=== PATIENT | female | born 1950 | race Caucasian/White ===

== ENCOUNTER → 2017-12-13 02:10 | Outpatient (CLI) | payer MEDICARE, SELFPAY ==
--- NOTE | 2017-12-13 11:12 | DI.REPORT_ITS ---
SYMPTOMS/DIAGNOSIS: COUGH, R05 PA AND LATERAL CHEST: Comparison is 07/12/15. The heart size and pulmonary vasculature are within normal limits. No findings to suggest congestive heart failure or pneumonia are appreciated. No effusions or pneumothoraces are identified. Mild degenerative changes are seen in the spine. IMPRESSION: No acute pulmonary process.
== END ==
PROVIDERS: PCP Family Medicine; Visit Provider Nurse Practitioner Family
DX: R05 Cough (principal)
CPT/HCPCS: 71046

== ENCOUNTER 2018-05-03 01:44 | Outpatient (CLI) | payer MEDICARE, SELFPAY ==
[2018-05-03 09:58] LABS: Hemoglobin A1C 7.4 % (4.5-6.2)
[2018-05-03 10:27] LABS: ALT 42 U/L (12-78); AST 25 U/L (15-37); Albumin 3.5 g/dL (3.4-5.0); Alkaline Phosphatase 90 U/L (46-116); BUN 16 mg/dL (7-18); Bilirubin, Total 0.6 mg/dL (0.2-1.0); CREATININE 0.97 mg/dL (0.55-1.02); Calcium 9.6 mg/dL (8.5-10.1); Chloride 102 mmol/L (98-107); Cholesterol 191 mg/dL (50-200); Estimated GFR 57.64 (mL/min/1.73m2); Glucose 139 mg/dL (70-100); HDL Cholesterol 51 mg/dL (40-60); LDL CHOLESTEROL 128 mg/dL (<100); Sodium 141 mmol/L (136-145); TSH (W/Ref FT4) 1.18 uIU/mL (0.358-3.74); Total Protein 7.7 g/dL (6.4-8.2); Triglyceride 86 mg/dL (30-150)
== END 2018-05-03 02:04 ==
PROVIDERS: PCP Family Medicine; Visit Provider Family Medicine
DX: E03.9 Hypothyroidism, unspecified (principal); I10 Essential (primary) hypertension; K80.20 Calculus of gallbladder without cholecystitis without obstruction; E11.9 Type 2 diabetes mellitus without complications; E66.9 Obesity, unspecified
CPT/HCPCS: 36415; 80053; 80061; 83721; 83036; 84443

== ENCOUNTER 2018-06-22 00:36 | Outpatient (CLI) | payer MEDICARE, SELFPAY ==
--- NOTE | 2018-06-22 14:04 | DI.MAMMO_ITS ---
SYMPTOM/DIAGNOSIS: SCREENING, Z12.31 MAMMOGRAMS: Mammograms were interpreted according to the usual protocol including computer analysis with CAD system, tomosynthesis and C view imaging. Comparison is with the prior examinations. No suspicious masses or microcalcifications are seen. There is no definite evidence of malignancy. IMPRESSION: Negative mammogram. Routine screening is recommended. Category 1. Breast density B. MQSA ASSESSMENT OF FINDINGS: Negative. Category 1. Patient will receive a letter notifying them of these results. BI-RADS category B. There are scattered areas of fibroglandular density.
--- NOTE | 2018-06-22 14:30 | DI.RAD_ITS ---
SYMPTOM/DIAGNOSIS: SCREENING FOR OSTEOPOROSIS IN A POSTMENOPAUSAL WOMAN, Z78.0, OSTEOPENIA, M85.88 DEXA SCAN: Routine examination. Evaluation of the lateral spine shows no compression deformities. In the left hip, there is a total T score of -1.4 and a Z score of -0.2. This is consistent with osteopenia and an increased fracture risk. This compares with a total T score of -0.8 in 2008. Evaluation of the lumbar spine shows a total T score of -0.3 and a Z score of 1.5, which is within normal limits. This compares with a total T score of -0.8 on the prior examination. IMPRESSION: Osteopenia in the left hip. No evidence of osteoporosis.
== END 2018-06-22 00:56 ==
PROVIDERS: PCP Family Medicine; Visit Provider Family Medicine
DX: M85.88 Other specified disorders of bone density and structure, other site (principal); Z78.0 Asymptomatic menopausal state; Z12.31 Encounter for screening mammogram for malignant neoplasm of breast
CPT/HCPCS: 77063; 77067; 77080

== ENCOUNTER 2018-10-11 01:12 | Outpatient (RCR) | payer MEDICARE, SELFPAY ==
[2018-10-04 09:04] VITALS: BP 146/81; PULSE 89; RESP 18; TEMP 36.5; O2SAT 93
[2018-10-04] MEDS: Normal Saline Flush 10 ML SYR IVP (09:47)
[2018-10-04] MEDS: Proteinase Inhibitor 5 VIAL in EMPTY EVACUATED CONTAINER 1 EACH 100 VIAL IVPB (09:48)
[2018-10-04 09:51] VITALS: BP 144/85; PULSE 77; RESP 18; TEMP 36.7; O2SAT 90
[2018-10-04 10:09] VITALS: BP 150/73; PULSE 76; RESP 18; TEMP 36.4; O2SAT 91
[2018-10-04 10:36] VITALS: BP 139/71; PULSE 77; RESP 18; TEMP 36.5; O2SAT 91
[2018-10-04 11:04] VITALS: BP 144/75; PULSE 72; RESP 18; TEMP 36.5; O2SAT 90
[2018-10-04 11:37] VITALS: BP 132/68; PULSE 70; RESP 18; TEMP 36.4; O2SAT 92
[2018-10-11] VITALS (7 sets, daily range): BP systolic 137–172; BP diastolic 71–91; PULSE 68–84; RESP 16–18; TEMP 36–36.6; O2SAT 90–94
[2018-10-11] MEDS: Normal Saline Flush 10 ML SYR IVP (09:53)
[2018-10-11] MEDS: Proteinase Inhibitor 5 VIAL in EMPTY EVACUATED CONTAINER 1 EACH 100 VIAL IVPB (09:53)
== END 2018-10-15 23:59 | disposition home or self-care (01) ==
LOC: INF 01:12
PROVIDERS: PCP Family Medicine; Visit Provider Internal Medicine
DX: E88.01 Alpha-1-antitrypsin deficiency (principal)
CPT/HCPCS: 96365; J0257; J1200

== ENCOUNTER 2018-11-14 01:23 | Outpatient (RCR) | payer MEDICARE, SELFPAY ==
[2018-10-18 09:18] VITALS: BP 144/83; PULSE 82; RESP 18; TEMP 36.4; O2SAT 98
[2018-10-18] MEDS: Proteinase Inhibitor 5 VIAL in EMPTY EVACUATED CONTAINER 1 EACH 100 VIAL IVPB (10:18)
[2018-10-18] MEDS: Normal Saline Flush 10 ML SYR IVP (10:18)
[2018-10-18 10:53] VITALS: BP 146/79; PULSE 77; RESP 18; TEMP 36.3; O2SAT 93
[2018-10-18 11:25] VITALS: BP 153/80; PULSE 72; RESP 18; TEMP 36.5; O2SAT 98
[2018-10-18 11:46] VITALS: BP 145/70; PULSE 74; RESP 18; TEMP 36.4; O2SAT 99
[2018-10-18 12:48] VITALS: BP 134/84; PULSE 82; TEMP 36.6
[2018-10-18 13:23] VITALS: BP 143/77; PULSE 80; TEMP 36.6; O2SAT 93
[2018-10-24] MEDS: Proteinase Inhibitor 5 VIAL in EMPTY EVACUATED CONTAINER 1 EACH 100 VIAL IVPB (13:38)
[2018-10-24] MEDS: Normal Saline Flush 10 ML SYR IVP (13:39)
[2018-10-31 13:24] VITALS: BP 143/77; PULSE 80; TEMP 36.6; O2SAT 93
[2018-10-31] MEDS: Normal Saline Flush 10 ML SYR IVP (13:55)
[2018-10-31] MEDS: Proteinase Inhibitor 5 VIAL in EMPTY EVACUATED CONTAINER 1 EACH 100 VIAL IVPB (13:55)
[2018-11-07] MEDS: Normal Saline Flush 10 ML SYR IVP (14:12)
[2018-11-07] MEDS: Proteinase Inhibitor 5 VIAL in EMPTY EVACUATED CONTAINER 1 EACH 100 VIAL IVPB (14:12)
[2018-11-14] MEDS: Proteinase Inhibitor 5 VIAL in EMPTY EVACUATED CONTAINER 1 EACH 100 VIAL IVPB (13:29)
[2018-11-14] MEDS: Normal Saline Flush 10 ML SYR IVP (13:29)
== END 2018-11-15 23:59 | disposition home or self-care (01) ==
LOC: INF 01:23
PROVIDERS: PCP Family Medicine; Visit Provider Internal Medicine
DX: E88.01 Alpha-1-antitrypsin deficiency (principal)
CPT/HCPCS: 96365; 96374; J0257

== ENCOUNTER 2018-12-12 01:18 | Outpatient (RCR) | payer MEDICARE, SELFPAY ==
[2018-11-23] MEDS: Proteinase Inhibitor 5 VIAL in EMPTY EVACUATED CONTAINER 1 EACH 100 VIAL IVPB (13:02)
[2018-11-23] MEDS: Normal Saline Flush 10 ML SYR IVP (13:15)
[2018-11-30] MEDS: Normal Saline Flush 10 ML SYR IVP (14:38)
[2018-11-30] MEDS: Proteinase Inhibitor 5 VIAL in EMPTY EVACUATED CONTAINER 1 EACH 100 VIAL IVPB (15:02)
[2018-12-07] MEDS: Proteinase Inhibitor 5 VIAL in EMPTY EVACUATED CONTAINER 1 EACH 100 VIAL IVPB (14:10)
[2018-12-07] MEDS: Normal Saline Flush 10 ML SYR IVP (14:49)
[2018-12-12] MEDS: Proteinase Inhibitor 5 VIAL in EMPTY EVACUATED CONTAINER 1 EACH 150 VIAL IVPB (14:05)
[2018-12-12] MEDS: Normal Saline Flush 10 ML SYR IVP (14:05)
== END 2018-12-16 23:59 | disposition home or self-care (01) ==
LOC: INF 01:18
PROVIDERS: PCP Family Medicine; Visit Provider Internal Medicine
DX: E88.01 Alpha-1-antitrypsin deficiency (principal)
CPT/HCPCS: 96365; J0257

== ENCOUNTER 2019-01-10 01:15 | Outpatient (RCR) | payer MEDICARE, SELFPAY ==
[2018-12-19] MEDS: Normal Saline Flush 10 ML SYR IVP (13:03)
[2018-12-19] MEDS: Proteinase Inhibitor 5 VIAL in EMPTY EVACUATED CONTAINER 1 EACH 175 VIAL IVPB (13:53)
[2018-12-26] MEDS: Proteinase Inhibitor 5 VIAL in EMPTY EVACUATED CONTAINER 1 EACH 100 VIAL IVPB (13:25)
[2018-12-26] MEDS: Normal Saline Flush 10 ML SYR IVP (13:25)
[2019-01-02] MEDS: Proteinase Inhibitor 5 VIAL in EMPTY EVACUATED CONTAINER 1 EACH 100 VIAL IVPB (12:30)
[2019-01-02] MEDS: Normal Saline Flush 10 ML SYR IVP (12:30)
[2019-01-10] MEDS: Normal Saline Flush 10 ML SYR IVP (11:53)
[2019-01-10] MEDS: Proteinase Inhibitor 5 VIAL in EMPTY EVACUATED CONTAINER 1 EACH 100 VIAL IVPB (11:53)
== END 2019-01-15 23:59 | disposition home or self-care (01) ==
LOC: INF 01:15
PROVIDERS: PCP Family Medicine; Visit Provider Internal Medicine
DX: E88.01 Alpha-1-antitrypsin deficiency (principal)
CPT/HCPCS: 96365; J0257

== ENCOUNTER 2019-02-13 02:06 | Outpatient (RCR) | payer MEDICARE, SELFPAY ==
[2019-01-16] MEDS: Proteinase Inhibitor 5 VIAL in EMPTY EVACUATED CONTAINER 1 EACH 100 VIAL IVPB (13:57)
[2019-01-23] MEDS: Normal Saline Flush 10 ML SYR IVP (12:55)
[2019-01-23] MEDS: Proteinase Inhibitor 5 VIAL in EMPTY EVACUATED CONTAINER 1 EACH 100 VIAL IVPB (12:55)
[2019-01-30] MEDS: Proteinase Inhibitor 5 VIAL in EMPTY EVACUATED CONTAINER 1 EACH 100 VIAL IVPB (12:42)
[2019-01-30] MEDS: Normal Saline Flush 10 ML SYR IVP (12:42)
[2019-02-06] MEDS: Normal Saline Flush 10 ML SYR IVP (12:42)
[2019-02-06] MEDS: Proteinase Inhibitor 5 VIAL in EMPTY EVACUATED CONTAINER 1 EACH 100 VIAL IVPB (12:43)
[2019-02-13] MEDS: Normal Saline Flush 10 ML SYR IVP (10:48)
[2019-02-13] MEDS: Proteinase Inhibitor 5 VIAL in EMPTY EVACUATED CONTAINER 1 EACH 100 VIAL IVPB (10:48)
== END 2019-02-15 23:59 | disposition home or self-care (01) ==
LOC: INF 02:06
PROVIDERS: PCP Family Medicine; Visit Provider Internal Medicine
DX: E88.01 Alpha-1-antitrypsin deficiency (principal)
CPT/HCPCS: 96365; J0257

== ENCOUNTER 2019-03-13 01:14 | Outpatient (RCR) | payer MEDICARE, SELFPAY ==
[2019-02-21] MEDS: Proteinase Inhibitor 5 VIAL in EMPTY EVACUATED CONTAINER 1 EACH 130 VIAL IVPB (11:50)
[2019-03-01] MEDS: Proteinase Inhibitor 5 VIAL in EMPTY EVACUATED CONTAINER 1 EACH 100 VIAL IVPB (13:44)
[2019-03-01] MEDS: Normal Saline Flush 10 ML SYR IVP (14:07)
[2019-03-06] MEDS: Proteinase Inhibitor 5 VIAL in EMPTY EVACUATED CONTAINER 1 EACH 100 VIAL IVPB (13:41)
[2019-03-06] MEDS: Normal Saline Flush 10 ML SYR IVP (13:41)
[2019-03-13] MEDS: Proteinase Inhibitor 5 VIAL in EMPTY EVACUATED CONTAINER 1 EACH 100 VIAL IVPB (13:35)
[2019-03-13] MEDS: Normal Saline Flush 10 ML SYR IVP (13:35)
== END 2019-03-17 23:59 | disposition home or self-care (01) ==
LOC: INF 01:14
PROVIDERS: PCP Family Medicine; Visit Provider Internal Medicine
DX: E88.01 Alpha-1-antitrypsin deficiency (principal); Z23 Encounter for immunization
CPT/HCPCS: 96365; 96372; J0257

== ENCOUNTER 2019-04-12 00:41 | Outpatient (RCR) | payer MEDICARE, SELFPAY ==
[2019-03-20] MEDS: Normal Saline Flush 10 ML SYR IVP (13:00)
[2019-03-20] MEDS: Proteinase Inhibitor 5 VIAL in EMPTY EVACUATED CONTAINER 1 EACH 100 VIAL IVPB (13:00)
[2019-03-27] MEDS: Proteinase Inhibitor 5 VIAL in EMPTY EVACUATED CONTAINER 1 EACH 100 VIAL IVPB (12:06)
[2019-03-27] MEDS: Normal Saline Flush 10 ML SYR IVP (12:06)
[2019-04-12] MEDS: Proteinase Inhibitor 5 VIAL in EMPTY EVACUATED CONTAINER 1 EACH 147 VIAL IVPB (13:03)
[2019-04-12] MEDS: Normal Saline Flush 10 ML SYR IVP (13:03)
== END 2019-04-17 23:59 | disposition home or self-care (01) ==
LOC: INF 00:41
PROVIDERS: PCP Family Medicine; Visit Provider Internal Medicine
DX: E88.01 Alpha-1-antitrypsin deficiency (principal)
CPT/HCPCS: 96365; J0257

== ENCOUNTER 2019-05-17 01:38 | Outpatient (RCR) | payer MEDICARE, SELFPAY ==
[2019-04-19] MEDS: Proteinase Inhibitor 5 VIAL in EMPTY EVACUATED CONTAINER 1 EACH 100 VIAL IVPB (14:10)
[2019-04-19] MEDS: Normal Saline Flush 10 ML SYR IVP (14:10)
[2019-05-02] MEDS: Proteinase Inhibitor 5 VIAL in EMPTY EVACUATED CONTAINER 1 EACH 100 VIAL IVPB (13:44)
[2019-05-02] MEDS: Normal Saline Flush 10 ML SYR IVP (13:44)
[2019-05-10] MEDS: Normal Saline Flush 10 ML SYR IVP (13:20)
[2019-05-10] MEDS: Proteinase Inhibitor 5 VIAL in EMPTY EVACUATED CONTAINER 1 EACH 100 VIAL IVPB (13:20)
[2019-05-17] MEDS: Proteinase Inhibitor 5 VIAL in EMPTY EVACUATED CONTAINER 1 EACH 100 VIAL IVPB (13:26)
[2019-05-17] MEDS: Normal Saline Flush 10 ML SYR IVP (13:27)
== END 2019-05-18 23:59 | disposition home or self-care (01) ==
LOC: INF 01:38
PROVIDERS: PCP Family Medicine; Visit Provider Internal Medicine
DX: E88.01 Alpha-1-antitrypsin deficiency (principal)
CPT/HCPCS: 96365; J0257

== ENCOUNTER 2019-06-13 12:00 | Outpatient (RCR) | payer MEDICARE, SELFPAY ==
[2019-05-23] MEDS: Normal Saline Flush 10 ML SYR IVP (13:32)
[2019-05-23] MEDS: Proteinase Inhibitor 5 VIAL in EMPTY EVACUATED CONTAINER 1 EACH 100 VIAL IVPB (13:32)
[2019-05-31] MEDS: Proteinase Inhibitor 5 VIAL in EMPTY EVACUATED CONTAINER 1 EACH 100 VIAL IVPB (13:32)
[2019-05-31] MEDS: Normal Saline Flush 10 ML SYR IVP (13:33)
[2019-06-07] MEDS: Normal Saline Flush 10 ML SYR IVP (13:32)
[2019-06-07] MEDS: Proteinase Inhibitor 5 VIAL in EMPTY EVACUATED CONTAINER 1 EACH 100 VIAL IVPB (13:32)
[2019-06-13] MEDS: Normal Saline Flush 10 ML SYR IVP (13:39)
[2019-06-13] MEDS: Proteinase Inhibitor 5 VIAL in EMPTY EVACUATED CONTAINER 1 EACH 100 VIAL IVPB (13:39)
== END 2019-06-16 23:59 | disposition home or self-care (01) ==
LOC: INF 12:00
PROVIDERS: PCP Family Medicine; Visit Provider Internal Medicine
DX: E88.01 Alpha-1-antitrypsin deficiency (principal)
CPT/HCPCS: 96365; J0257

== ENCOUNTER 2019-06-20 21:15 | Emergency (ER) | payer MEDICARE, SELFPAY ==
[2019-06-20 21:19] VITALS: BP 157/82; PULSE 89; RESP 20; TEMP 36.8; O2SAT 93
--- NOTE | 2019-06-20 21:35 | W.ED.GENAD ---
Discharge Plan Disposition Patient Disposition: HOME Condition: Good Discharge Details Chief Complaint: Orthopedic Clinical Impression: Contusion of left shoulder Primary Care Provider: Tori Seay ED Provider: Nichole Rosas Home Meds and New Rx's Prescriptions: Continued cholecalciferol (vitamin D3) 1,000 UNIT capsule 1,000 unit PO DAILY RF: 0 omega-3 fatty acids-fish oil 1 EACH capsule 1 ea PO DAILY RF: 0 iodizyme 6.25 mg PO DAILY RF: 0 losartan 50 MG tablet 50 mg PO DAILY Qty: 30 RF: 6 levothyroxine 75 MCG tablet 75 mcg PO DAILY Qty: 30 RF: 6 hydrochlorothiazide 25 MG tablet 25 mg PO DAILY Qty: 30 RF: 6 albuterol sulfate [ProAir HFA] 8.5 GM HFA aerosol inhaler 2 puff Inhalation Q4H PRN PRNRF: 0 albuterol sulfate [ProAir HFA] 200 PUFF HFA aerosol inhaler 2 puff Inhalation Q4H PRNQty: 1 RF: 0 Discharge Instructions Instructions: Shoulder Pain (ED) Additional Instructions: Encourage rest, ice, elevation. Tylenol and/or ibuprofen as needed for discomfort. Please continue sling to evaluated by orthopedics. Please come out of the sling four to 5 times daily to perform passive range of motion exercises as discussed. If you develop fever/chills, increased pain, numbness/tingling or other new/worsening symptom please seek care urgently once again. Please call orthopedics tomorrow to schedule follow-up appointment. Stand Alone Forms: Work Release Referrals: Elder Jiang MD [ [facility] STAFF PHYSICIAN] - Discharge Data Discharge Date/Time-TO BE ENTERED AT DEPARTURE: 06/20/19 22:45 Medical Decision Making Patient is a pleasant 68-year-old [id number] female presenting today to complain of left shoulder pain. She reports she initially injured the left shoulder in February when she suffered a FOOSH. Since that time she reports she has had discomfort in the left shoulder but that it has progressively been improving. However, she reports that today she slipped and landed directly on the lateral aspect of the left shoulder. She denies any numbness or tingling. Denies other injuries in the incident. Not strike her head, conscious. Indicates the proximal humerus and AC joint. Discomfort. On exam, patient appears uncomfortable. She is preferring to hold the left arm fairly sedentary. No neck pain thoracic spine pain. She has point tenderness over the AC joint as well as the proximal humerus. Full range of motion of the elbow, wrist, hand. Sider strength neurologic deficit appreciated. 2+ distal pulses. Very limited range of motion. Concern for possible fracture, will obtain x-ray. Patient given Tylenol ibuprofen help with discomfort. X-rays reviewed by radiologist FINDINGS: Bones/joints: Old/healed midclavicular fracture is appreciated. No acutely displaced fracture or dislocation. No aggressive osseous lesions. Soft tissues: No acute soft tissue findings. IMPRESSION: Negative for acute skeletal pathology. Discussed these findings with the patient. She does report that she has fractured this clavicle twice historically not associated injury February or today. Given the longevity of her discomfort, I do feel that evaluation with orthopedics would be appropriate. She did have a rotator cuff repair on the contralateral side. I was unable to assess her rotator cuff well today secondary to her discomfort. Passive range of motion exercises were given. We will place the patient in a sling temporarily just to help with her discomfort I have asked that she come out of this multiple times daily to work on her passive range of motion and prevent adhesive capsulitis. She was given return precautions. She will call orthopedics tomorrow to schedule follow-up appointment. All her questions or concerns were addressed and she is in agreement this plan. [facility] General Mode of arrival: ambulatory. Date/Time Provider Initiated Documentation: 06/20/19 21:32. Limitations to Documentation: no limitations. Information obtained by: patient, family and RN notes reviewed. History of Present Illness 68 year old F presents to the emergency department with the chief complaint of Left shoulder pain, described as severe, with intensity rated at 8. Quality is described as sharp, and is localized to the left and upper extremity. Patient reports no radiation. Patient started experiencing this month(s) (Patient has an acute on chronic left shoulder pain) and it has been constant. Immobilization improves symptom(s), Movement worsens symptoms . Patient notes no other symptoms.. Patient did receive the following treatments prior to arrival, none Related Data Home Medications Medication Instructions Recorded Confirmed cholecalciferol (vitamin D3) 1,000 unit PO DAILY 06/27/14 06/20/19 omega-3 fatty acids-fish oil 1 ea PO DAILY 06/27/14 06/20/19 Iodizyme 6.25 mg PO DAILY 07/24/14 06/20/19 hydrochlorothiazide 25 mg PO DAILY #30 tab-cap 12/19/14 06/20/19 levothyroxine 75 mcg PO DAILY #30 tab-cap 12/19/14 06/20/19 losartan 50 mg PO DAILY #30 tab-cap 12/19/14 06/20/19 albuterol sulfate [ProAir HFA] 2 puff INHALATION Q4H PRN PRN 07/12/15 06/20/19 albuterol sulfate [ProAir HFA] 2 puff INHALATION Q4H PRN #1 inh 07/17/15 06/20/19 Previous Rx's Medication Instructions Recorded albuterol sulfate [ProAir HFA] 2 puff INHALATION Q4H PRN #1 inh 07/17/15 Allergies Allergy/AdvReac Type Severity Reaction Status Date / Time meperidine HCl [From Demerol] AdvReac Intermediate agitated Unverified 06/20/19 21:21 and ugly tetracycline AdvReac Intermediate upsets Unverified 06/20/19 21:21 stomach amitriptyline AdvReac Mild adverse Unverified 06/20/19 21:21 effect lisinopril AdvReac Mild cough Unverified 06/20/19 21:21 General Stated Complaint: Orthopedic IGGY: 3 Review of Systems Constitutional Constitutional: Reports as per HPI, Denies chills, Denies fever(s), Denies headache(s) and Denies weakness ENT Ears, Nose, Mouth, and Throat: Denies headache(s) Cardiovascular Cardiovascular: Reports as per HPI Respiratory Respiratory: Reports as per HPI and Denies cough Musculoskeletal Musculoskeletal: Reports as per HPI and Denies tingling Integumentary/Breasts Skin/Breast: Reports as per HPI, Denies rash and Denies wounds Neurologic Neurologic: Reports as per HPI, Denies headache(s), Denies tingling, Denies paresthesias and Denies weakness [facility] Surgical History Abdominal hysterectomy (~1985) LINDA/BSO Appendectomy (~1968) CYSTECTOMY (~01/2004) L BR CYST REMOVED Endoscopy (12/22/04) LATERAL EPICONDYLE SURGERY (04/30/03) Open Carpal Tunnel release (~12/1999) LEFT RIGHT ANKLE AND KNEE SURGERY (10/16/95) Rotator Cuff Repair (09/22/07) RIGHT TKA (03/27/10) RIGHT Family History Mother COPD (chronic obstructive pulmonary disease) MS (multiple sclerosis) Father Essential hypertension CAD (coronary artery disease) Alzheimer disease Grandfather Diabetes Personal history of malignant neoplasm PROSTATE Mental disorder DEMENTIA Grandfather Essential hypertension Heart disease Grandmother Essential hypertension Stroke Grandmother Essential hypertension Alzheimer disease Social History Smoking/Tobacco Use Status: Former Tobacco Use Drug use: Never Do you feel safe at home: Yes Do you feel safe in your relationship?: Yes Exam Const General: cooperative, healthy appearing, comfortable, no acute distress, well developed and well groomed Nutritional Appearance: well nourished, overweight and edematous Orientation: alert and awake Chest Chest: normal inspection of the chest, no crepitus, no localized rib tenderness and no tenderness Resp Effort & Inspection: normal respiratory effort, able to speak in complete sentences and no respiratory distress Auscultation: clear to auscultation bilaterally Cardio Rate: regular rate Rhythm: regular rhythm Heart Sounds: S1 normal and S2 normal Back/Spine/Pelvis Cervical Spine: normal cervical lordosis, cervical ROM normal, No cervical spinal tenderness and No step off deformity Thoracic/Lumbar Spine: thoracic and lumbar spine normal to inspection, thoraco-lumbar ROM normal and No thoracic spinal tenderness Skin General skin exam: no rashes or lesions noted Lesions: no lesions Rashes: no rashes Trauma: no lacerations or abrasions Neuro General: alert and awake Cognition: normal cognition Speech: speech normal Gait: normal gait Motor: muscle tone normal throughout Sensory Exam: no sensory deficits noted Extrem Left upper extremity: normal to inspection, normal capillary refill, no joint enlargement, shoulder/upper arm Details: inspection abnormal, tenderness Location: of the A-C joint and of the proximal humerus, axillary nerve sensory function normal and abnormal ROM (Limited alterations, unable to forward elevate past 45 degrees); no swelling, ROM limited, no abrasions, no lacerations, no ecchymosis, no crepitus, no foreign bodies and no deformity, elbow/forearm Details: normal to inspection, normal ROM and distal pulses intact; no tenderness, no swelling, no ecchymosis, no crepitus and no deformity, wrist Details: normal to inspection, normal vascular exam and radial pulse present; no tenderness and no deformity and hand Details: normal to inspection; ROM limited and no edema Psych Appearance: grossly normal and well kempt Mental Status: mental status grossly normal Speech and Movement: speech and movement normal Course Vital Signs Vital signs: Vital Signs Temperature 36.8 C 06/20/19 21:19 Pulse 89 06/20/19 21:19 Respiratory Rate 06/20/19 21:19 Blood Pressure 157/82 H 06/20/19 21:19 Pulse Oximetry 93 L 06/20/19 21:19 Temperature 36.8 C 06/20/19 21:19 Temperature Source Temporal Artery Scan 06/20/19 21:19 Pulse 89 06/20/19 21:19 Respiratory Rate 20 06/20/19 21:19 Respiratory Effort Non-Labored 06/20/19 21:22 Blood Pressure 157/82 H 06/20/19 21:19 Pulse Oximetry 93 L 06/20/19 21:19 Oxygen Delivery Method Room Air 06/20/19 21:19 Oxygen Flow Rate 0 06/20/19 21:19 Pain Level 8 06/20/19 21:19
[2019-06-20] MEDS: Ibuprofen 600 MG TAB PO (21:44)
[2019-06-20] MEDS: Acetaminophen 500 MG TAB 1000 MG PO (21:44)
--- NOTE | 2019-06-20 21:53 | DI.RAD_ITS ---
EXAM: XR SHOULDER LT COMPLETE 2+V CLINICAL HISTORY: FOOSH. TECHNIQUE: 2D digital imaging was performed. COMPARISON: No exams were available for comparison FINDINGS: BONES: No acute fracture is present. No bony destructive lesion is seen. Old healed left mid clavicul ar fracture. JOINTS: No dislocation present. Degenerative changes at the acromioclavicular joint. SOFT TISSUE: Normal. IMPRESSION: No acute fracture or dislocation. DATA REPOSITORY: RADIATION DOSE DELIVERED:
--- NOTE | 2019-06-20 22:22 | DI.VRAD_ITS ---
PROCEDURE INFORMATION: Exam: XR Left Shoulder Exam date and time: 06/20/2019 10:01 PM Age: 68 years old Clinical indication: Injury or trauma; Fall; Initial encounter; Blunt trauma (contusions or hematomas; Shoulder; Left; Injury date: 06/20/19; Injury details: Foosh TECHNIQUE: Imaging protocol: XR Left shoulder. Views: 2 or more views. COMPARISON: No relevant prior studies available. FINDINGS: Bones/joints: Old/healed midclavicular fracture is appreciated. No acutely displaced fracture or dislocation. No aggressive osseous lesions. Soft tissues: No acute soft tissue findings. IMPRESSION: Negative for acute skeletal pathology. Dictated and Authenticated by: Fernando Denton MD. Ordering:SANDI Varela MD
[2019-06-20 22:45] VITALS: BP 157/82; PULSE 89; RESP 20; TEMP 36.8; O2SAT 93
== END 2019-06-20 22:45 | disposition home or self-care (01) ==
PROVIDERS: Emergency Provider Physician Assistant; PCP Family Medicine
DX: S40.012A Contusion of left shoulder, initial encounter (principal); W19.XXXA Unspecified fall, initial encounter; E88.01 Alpha-1-antitrypsin deficiency
CPT/HCPCS: 96365; 99283; 73030; J0257; L3650

== ENCOUNTER → 2019-07-10 10:35 | Outpatient (BNVA) | payer MEDICARE, SELFPAY | PROVIDERS: PCP Family Medicine; Referring Provider Family Medicine; Visit Provider Student in an Organized Health Care Education/Training Program | DX: S40.012A Contusion of left shoulder, initial encounter (principal); W01.0XXA Fall on same level from slipping, tripping and stumbling without subsequent striking against object, initial encounter; M75.22 Bicipital tendinitis, left shoulder; E11.9 Type 2 diabetes mellitus without complications; Z79.84 Long term (current) use of oral hypoglycemic drugs | CPT/HCPCS: 99203; 99214 ==

== ENCOUNTER 2019-07-12 01:17 | Outpatient (RCR) | payer MEDICARE, SELFPAY ==
[2019-06-20] MEDS: Proteinase Inhibitor 5 VIAL in EMPTY EVACUATED CONTAINER 1 EACH 100 VIAL IVPB (13:00)
[2019-06-20] MEDS: Normal Saline Flush 10 ML SYR IVP (13:40)
[2019-06-28] MEDS: Normal Saline Flush 10 ML SYR IVP ×2 (12:54→13:02)
[2019-06-28] MEDS: Proteinase Inhibitor 5 VIAL in EMPTY EVACUATED CONTAINER 1 EACH 100 VIAL IVPB (13:01)
[2019-07-05] MEDS: Proteinase Inhibitor 5 VIAL in EMPTY EVACUATED CONTAINER 1 EACH 100 VIAL IVPB (12:46)
[2019-07-05] MEDS: Normal Saline Flush 10 ML SYR IVP (12:56)
[2019-07-12] MEDS: Normal Saline Flush 10 ML SYR IVP (13:21)
[2019-07-12] MEDS: Proteinase Inhibitor 5 VIAL in EMPTY EVACUATED CONTAINER 1 EACH 100 VIAL IVPB (13:21)
== END 2019-07-17 23:59 | disposition home or self-care (01) ==
LOC: INF 01:17
PROVIDERS: PCP Family Medicine; Visit Provider Internal Medicine
DX: E88.01 Alpha-1-antitrypsin deficiency (principal)
CPT/HCPCS: 96365; J0257

== ENCOUNTER 2019-08-16 01:01 | Outpatient (RCR) | payer MEDICARE, SELFPAY ==
[2019-07-19] MEDS: Proteinase Inhibitor 5 VIAL in EMPTY EVACUATED CONTAINER 1 EACH 100 VIAL IVPB (13:10)
[2019-07-19] MEDS: Normal Saline Flush 10 ML SYR IVP (13:14)
[2019-07-26] MEDS: Proteinase Inhibitor 5 VIAL in EMPTY EVACUATED CONTAINER 1 EACH 185 VIAL IVPB (13:22)
[2019-07-26] MEDS: Normal Saline Flush 10 ML SYR IVP (13:22)
[2019-08-02] MEDS: Normal Saline Flush 10 ML SYR IVP (13:16)
[2019-08-02] MEDS: Proteinase Inhibitor 5 VIAL in EMPTY EVACUATED CONTAINER 1 EACH 100 VIAL IVPB (13:16)
[2019-08-09] MEDS: Proteinase Inhibitor 5 VIAL in EMPTY EVACUATED CONTAINER 1 EACH 100 VIAL IVPB (13:08)
[2019-08-09] MEDS: Normal Saline Flush 10 ML SYR IVP (13:08)
[2019-08-16] MEDS: Normal Saline Flush 10 ML SYR IVP (13:41)
[2019-08-16] MEDS: Proteinase Inhibitor 5 VIAL in EMPTY EVACUATED CONTAINER 1 EACH 100 VIAL IVPB (13:41)
== END 2019-08-16 23:59 | disposition home or self-care (01) ==
LOC: INF 01:01
PROVIDERS: PCP Family Medicine; Visit Provider Family Medicine
DX: E88.01 Alpha-1-antitrypsin deficiency (principal)
CPT/HCPCS: 96365; 96366; 99195; J0257

== ENCOUNTER 2019-09-13 03:00 | Outpatient (RCR) | payer MEDICARE, SELFPAY ==
[2019-08-24] MEDS: Proteinase Inhibitor 5 VIAL in EMPTY EVACUATED CONTAINER 1 EACH 100 VIAL IVPB (11:50)
[2019-08-24] MEDS: Hepatitis B Virus Vaccine 20 MCG/ML VIAL IM (11:50)
[2019-08-24] MEDS: Normal Saline Flush 10 ML SYR IVP (11:57)
[2019-08-31] MEDS: Normal Saline Flush 10 ML SYR IVP (12:57)
[2019-08-31] MEDS: Proteinase Inhibitor 5 VIAL in EMPTY EVACUATED CONTAINER 1 EACH 100 VIAL IVPB (12:57)
[2019-08-31 13:05] LABS: Hemoglobin A1C 7.1 % (3.8-5.6)
[2019-08-31 13:07] LABS: ALT 34 U/L (14-59); AST 20 U/L (15-37); Albumin 3.4 g/dL (3.4-5.0); Alkaline Phosphatase 95 U/L (46-116); Bilirubin, Direct 0.09 mg/dL (0.00-0.20); Bilirubin, Total 0.4 mg/dL (0.2-1.0); Total Protein 7.9 g/dL (6.4-8.2)
[2019-09-05] MEDS: Proteinase Inhibitor 5 VIAL in EMPTY EVACUATED CONTAINER 1 EACH 100 VIAL IVPB (12:55)
[2019-09-05] MEDS: Normal Saline Flush 10 ML SYR IVP (12:55)
[2019-09-13] MEDS: Normal Saline Flush 10 ML SYR IVP (14:15)
[2019-09-13] MEDS: Proteinase Inhibitor 5 VIAL in EMPTY EVACUATED CONTAINER 1 EACH 100 VIAL IVPB (14:15)
== END 2019-09-16 23:59 | disposition home or self-care (01) ==
LOC: INF 03:00
PROVIDERS: PCP Family Medicine; Visit Provider Internal Medicine
DX: E88.01 Alpha-1-antitrypsin deficiency (principal); E11.9 Type 2 diabetes mellitus without complications
CPT/HCPCS: 36415; 80076; 90471; 96365; 96372; 83036; J0257

== ENCOUNTER 2019-10-11 02:01 | Outpatient (RCR) | payer MEDICARE, SELFPAY ==
[2019-09-20] MEDS: Proteinase Inhibitor 5 VIAL in EMPTY EVACUATED CONTAINER 1 EACH 100 VIAL IVPB (13:02)
[2019-09-20] MEDS: Normal Saline Flush 10 ML SYR IVP (13:02)
[2019-09-28] MEDS: Proteinase Inhibitor 5 VIAL in EMPTY EVACUATED CONTAINER 1 EACH 100 VIAL IVPB (14:09)
[2019-09-28] MEDS: Normal Saline Flush 10 ML SYR IVP (14:09)
[2019-10-04] MEDS: Proteinase Inhibitor 5 VIAL in EMPTY EVACUATED CONTAINER 1 EACH 100 VIAL IVPB (13:34)
[2019-10-04] MEDS: Normal Saline Flush 10 ML SYR IVP (13:35)
== END 2019-10-16 23:59 | disposition home or self-care (01) ==
LOC: INF 02:01
PROVIDERS: PCP Family Medicine; Visit Provider Internal Medicine
DX: E88.01 Alpha-1-antitrypsin deficiency (principal); Z45.2 Encounter for adjustment and management of vascular access device
CPT/HCPCS: 36591; 96365; J0257

== ENCOUNTER 2019-11-09 07:38 | Day surgery (SDC) | payer MEDICARE, SELFPAY ==
--- NOTE | 2019-11-09 09:02 | W.PM.DSUDISC ---
Discharge Plan Disposition Patient Disposition: HOME Condition: Good Discharge Details Reason For Visit: CATARACT OD Attending Provider: Holger Marquez Primary Care Provider: Tori Seay Home Meds and New Rx's Prescriptions: No Action metformin 1,000 mg tablet 1,000 mg PO BID RF: 0 aspirin 81 mg tablet,delayed release (DR/EC) 81 mg PO DAILY RF: 0 cholecalciferol (vitamin D3) 1,000 UNIT capsule 1,000 unit PO DAILY RF: 0 omega-3 fatty acids-fish oil 1 EACH capsule 1 ea PO DAILY RF: 0 iodizyme 6.25 mg PO DAILY RF: 0 losartan 50 MG tablet 50 mg PO DAILY Qty: 30 RF: 6 levothyroxine 75 MCG tablet 75 mcg PO DAILY Qty: 30 RF: 6 hydrochlorothiazide 25 MG tablet 25 mg PO DAILY Qty: 30 RF: 6 albuterol sulfate [ProAir HFA] 200 PUFF HFA aerosol inhaler 2 puff Inhalation Q4H PRNQty: 1 RF: 0 Trelegy Ellipta 100-62.5-25 mcg Blister With Device 1 inh INHALATION QAM RF: 0 Discharge Instructions Stand Alone Forms: Post-op Topical Cataract, Gayla Vidal (DSU) Discharge Orders Discharge Orders: Discharge Order (Routine); Ordered 11/09/19 Ordered By: Holger Marquez DS: Diagnosis Discharge Diagnosis (1) Cortical cataract of right eye: Status: Resolved (2) Nuclear sclerotic cataract of right eye: Status: Resolved
[2019-11-09] MEDS: Tetracaine 0.5% 4 ML BTL OD (09:06)
[2019-11-09] MEDS: Lidocaine 2% Jelly 6 ML SYR (09:07)
[2019-11-09] MEDS: Lidocaine 1% Pres-Free 5 ML VIAL (09:15)
[2019-11-09] MEDS: Balanced Salt Soln.-PLUS 500 ML BAG (09:15)
[2019-11-09] MEDS: Moxifloxacin-PF 1 MG/ML VIAL (09:32)
--- NOTE | 2019-11-09 09:39 | ROE_ITS ---
Date of service: 11/09/19 Time of Service: 09:39 Operative Note Operative Note DATE OF PROCEDURE: 11/09/19 PRE-OP DIAGNOSIS: Nuclear/cortical cataract, right eye POST-OP DIAGNOSIS: same PROCEDURE: Cataract extraction using phacoemulsification with intraocular lens implant, right eye SURGEON: Holger Marquez ANESTHESIA: MAC and local (sub-tenon's anesthetic infiltration) ESTIMATED BLOOD LOSS: 0 PATHOLOGY: none sent COMPLICATIONS: None Patient was transported to: same day Patient's condition: stable Implants: Mikhail [employer] / [employer] Tecnis [id number] intraocular lens Indications: Progressive decreased vision due to cataract, right eye Procedure Description: CATARACT SURGERY OPERATIVE REPORT PREOPERATIVE DIAGNOSIS: Nuclear/cortical cataract, right eye POSTOPERATIVE DIAGNOSIS: Same OPERATION: Cataract extraction using phacoemulsification with posterior chamber intraocular lens implant, right eye. IOL: IOL Notching Machine Operator/Model: [employer] / TRINI Tecnis ZCB00 IOL Power: + 24.0 diopters IOL Serial Number: [id number] Optic Diameter: 6.0mm Haptic/Overall Diameter: 13.0mm PHACO INFO: Travis Quill Contenturion Vision System with OZil and Active [employer]uidics Cumulative Dispersed Energy (CDE): 6.57 seconds SURGEON: Holger Marquez MD, SUDHEER ANESTHESIA: Monitored Anesthesia Care (MAC), with local sub-tenon's anesthetic infiltration COMPLICATIONS: None SPECIMENS: None INDICATIONS FOR PROCEDURE: The patient is a 68-year-old lady with history of diminished visual acuity in her right eye secondary to the development of nuclear and cortical cataract. She is significantly symptomatic that she desires cataract surgery and attempt to improve and maximize her vision. PROCEDURE: The correct surgical eye was identified and marked as the right eye and the pupil was dilated in the preoperative area using mydriatics and cycloplegics. The dilated pupil size was 6.0 mm. Oral sedation was administered in the form of an Imprimis MKO Melt (midazolam 3mg/ketamine 25mg/ondansetron 2mg). Positioning was challenging due to multiple musculoskeletal pain complaints. The patient was brought to the operating room where cardiopulmonary monitoring was instituted and surgical time-out was performed, confirming the c orrect operative eye and IOL power. Topical anesthesia was administered and ophthalmic povidone-iodine 5% was instilled into the conjunctival fornices. Lidocaine gel was applied to the cornea and the francisco javier-ocular area was prepped with Betadine 10% solution and draped in the usual sterile fashion for intraocular surgery, including an aperture drape. A Tegaderm transparent film dressing was cut in half and used to cover the lashes and lid margins. Care was taken to sequester the lashes and lid margins under the Tegaderm dressing. A lid speculum was placed between the lids of the operative eye and the Lanre-Betsy operating microscope was maneuvered into position. Ezequiel scissors were then used to make a conjunctival buttonhole approximately 6mm posterior to the limbus in the inferonasal quadrant. Blunt dissection was carried out to expose bare sclera, and a blunt-tipped sub-tenon?s anesthesia cannula was introduced and passed posteriorly along the globe where non- preserved plain lidocaine was injected into posterior sub-Tenon?s space. A sideport knife was used to make a paracentesis port inferiortemporally. Intraocular phenylephrine/lidocaine was injected into the anterior chamber. The anterior chamber was then filled with Healon Pro. A 2.4mm keratome knife was used to create a half-thickness groove at the limbus and then to construct a three-plane near-clear corneal tunnel extending 2.0mm into clear cornea in the superiortemporal position. . A flap was raised on the anterior capsule and capsulorhexis forceps were used to complete a continuous curvilinear capsulorh exis of 4.5 mm. The anterior chamber was moderately shallow, with a thin capsule, and constant patient movement. The capsulorrhexis was constructed smaller than normal. Balanced salt solution was then used to perform cortical cleaving hydrodissection and nuclear hydrodelineation until the lens could be freely rotated within the capsular bag. The lens nucleus was then disassembled and removed within the capsular bag and iris plane using phacoemulsification. Residual cortical material was removed using the I/A handpiece. The posterior capsule was carefully polished to remove as much residual lens epithelial cells as safely possible. The capsular bag was then inflated and the anterior chamber deepened with viscoelastic. The lens implant described above was inserted into the capsular bag using the TRINI Wheaton Injector. A Kuglen hook was used to dial the IOL into position. Residual viscoelastic was then removed first from posterior to the IOL, then from the anterior chamber using the I/A handpiece. The lens implant was noted to center nicely within the capsular bag. The incisions were stromally hydrated, and the anterior chamber was reformed using BSS. Then 0.5cc of moxifloxacin 1.0mg/ml were injected into the capsular bag and anterior chamber. The incisions were checked with a Weck spear and found to be secure. Several drops of ophthalmic povidone-iodine 5% were then applied to the eye followed by two drops of Imprimis combination prednisolone/moxifloxacin/nepafenac solution. The drapes were removed and a clear plastic protective eye shield was placed over the eye. The patient was then returned to Same Day Surgery in stable condition.
[2019-11-09 10:06] VITALS: BP 142/88; PULSE 68; RESP 14; TEMP 36.4; O2SAT 95
== END 2019-11-09 10:25 | disposition home or self-care (01) ==
PROVIDERS: PCP Family Medicine; Visit Provider Ophthalmology
PROC: (CPT 66984; principal; 2019-11-09 09:30)
DX: H25.11 Age-related nuclear cataract, right eye (principal); H25.011 Cortical age-related cataract, right eye; E11.9 Type 2 diabetes mellitus without complications; I10 Essential (primary) hypertension; J44.9 Chronic obstructive pulmonary disease, unspecified
CPT/HCPCS: 66984; V2632

== ENCOUNTER 2019-11-15 01:58 | Outpatient (RCR) | payer MEDICARE, SELFPAY ==
[2019-10-18] MEDS: Proteinase Inhibitor 5 VIAL in EMPTY EVACUATED CONTAINER 1 EACH 100 VIAL IVPB (13:49)
[2019-10-18] MEDS: Normal Saline Flush 10 ML SYR IVP (13:57)
[2019-10-24] MEDS: Normal Saline Flush 10 ML SYR IVP (13:51)
[2019-10-24] MEDS: Proteinase Inhibitor 5 VIAL in EMPTY EVACUATED CONTAINER 1 EACH 100 VIAL IVPB (13:51)
[2019-11-01] MEDS: Proteinase Inhibitor 5 VIAL in EMPTY EVACUATED CONTAINER 1 EACH 375 VIAL IVPB (14:11)
[2019-11-01] MEDS: Normal Saline Flush 10 ML SYR IVP (14:14)
[2019-11-08] MEDS: Normal Saline Flush 10 ML SYR IVP (12:11)
[2019-11-08] MEDS: Proteinase Inhibitor 5 VIAL in EMPTY EVACUATED CONTAINER 1 EACH 100 VIAL IVPB (12:11)
[2019-11-15] MEDS: Normal Saline Flush 10 ML SYR IVP (13:15)
[2019-11-15] MEDS: Proteinase Inhibitor 5 VIAL in EMPTY EVACUATED CONTAINER 1 EACH 190 VIAL IVPB (13:32)
== END 2019-11-16 23:59 | disposition home or self-care (01) ==
LOC: INF 01:58
PROVIDERS: PCP Family Medicine; Visit Provider Internal Medicine
DX: E88.01 Alpha-1-antitrypsin deficiency (principal)
CPT/HCPCS: 96365; 96374; J0257

== ENCOUNTER 2019-11-23 06:19 | Day surgery (SDC) | payer MEDICARE, SELFPAY ==
[2019-11-23 06:39] VITALS: BP 150/92; PULSE 79; RESP 18; TEMP 36.6; O2SAT 95
[2019-11-23] MEDS: Tetracaine 0.5% 4 ML BTL OS (07:21)
[2019-11-23] MEDS: Lidocaine 2% Jelly 6 ML SYR (07:22)
[2019-11-23] MEDS: Lidocaine 1% Pres-Free 5 ML VIAL (07:30)
[2019-11-23] MEDS: Balanced Salt Soln.-PLUS 500 ML BAG (07:31)
[2019-11-23] MEDS: Moxifloxacin-PF 1 MG/ML VIAL (07:32)
--- NOTE | 2019-11-23 07:56 | W.PM.DSUDISC ---
Discharge Plan Disposition Patient Disposition: HOME Condition: Good Discharge Details Attending Provider: Holger Marquez Primary Care Provider: Tori Seay Home Meds and New Rx's Prescriptions: No Action metformin 1,000 mg tablet 1,000 mg PO BID RF: 0 aspirin 81 mg tablet,delayed release (DR/EC) 81 mg PO DAILY RF: 0 cholecalciferol (vitamin D3) 1,000 UNIT capsule 1,000 unit PO DAILY RF: 0 omega-3 fatty acids-fish oil 1 EACH capsule 1 ea PO DAILY RF: 0 iodizyme 6.25 mg PO DAILY RF: 0 losartan 50 MG tablet 50 mg PO DAILY Qty: 30 RF: 6 levothyroxine 75 MCG tablet 75 mcg PO DAILY Qty: 30 RF: 6 hydrochlorothiazide 25 MG tablet 25 mg PO DAILY Qty: 30 RF: 6 albuterol sulfate [ProAir HFA] 200 PUFF HFA aerosol inhaler 2 puff Inhalation Q4H PRNQty: 1 RF: 0 Trelegy Ellipta 100-62.5-25 mcg Blister With Device 1 inh INHALATION QAM RF: 0 Discharge Instructions Stand Alone Forms: Post-op Topical Cataract, Gayla Vidal (DSU) Discharge Orders Discharge Orders: Discharge Order (Routine); Ordered 11/23/19 Ordered By: Holger Marquez DS: Diagnosis Discharge Diagnosis (1) Cortical cataract of left eye: Status: Resolved (2) Nuclear sclerotic cataract of left eye: Status: Resolved
--- NOTE | 2019-11-23 07:57 | ROE_ITS ---
Date of service: 11/23/19 Time of Service: 07:58 Operative Note Operative Note DATE OF PROCEDURE: 11/23/19 PRE-OP DIAGNOSIS: Nuclear/cortical cataract, left eye POST-OP DIAGNOSIS: same PROCEDURE: Cataract extraction using phacoemulsification with intraocular lens implant, left eye SURGEON: Holger Marquez ANESTHESIA: MAC and local (sub-tenon's anesthetic infiltration) PATHOLOGY: none sent COMPLICATIONS: None Patient was transported to: same day Patient's condition: stable Implants: Mikhail and Mikhail Vision / [employer] Tecnis ZCB00 Indications: Progressive decreased vision due to cataract, left eye Procedure Description: CATARACT SURGERY OPERATIVE REPORT PREOPERATIVE DIAGNOSIS: Nuclear/cortical cataract, left eye POSTOPERATIVE DIAGNOSIS: Same OPERATION: Cataract extraction using phacoemulsification with posterior chamber intraocular lens implant, left eye. IOL: IOL Cook [place]ada/Model: J[employer]J Vision / TRINI Tecnis ZCB00 IOL Power: + 23.50 diopters IOL Serial Number: [id number] Optic Diameter: 6.0mm Haptic/Overall Diameter: 13.0mm PHACO INFO: Travis Pivotshareurion Vision System with OZil and Active Fluidics Cumulative Dispersed Energy (CDE): 14.56 seconds SURGEON: Holger Marquez MD, SUDHEER ANESTHESIA: Monitored Anesthesia Care (MAC), with local sub-tenon's anesthetic infiltration COMPLICATIONS: None SPECIMENS: None INDICATIONS FOR PROCEDURE: The patient is a 68-year-old lady with history of diminished visual acuity in both eyes secondary to the development of bilateral nuclear and cortical cataract. She has already undergone cataract surgery in her right eye and is doing well postoperatively. She now presents for cataract surgery in the left eye. PROCEDURE: The correct surgical eye was identified and marked as the left eye and the pupil was dilated in the preoperative area using mydriatics and cyclo plegics. The dilated pupil size was 5.5 mm. Oral sedation was administered in the form of an Imprimis MKO Melt (midazolam 3mg/ketamine 25mg/ondansetron 2mg). The patient was brought to the operating room where cardiopulmonary monitoring was instituted and surgical time-out was performed, confirming the correct operative eye and IOL power. Topical anesthesia was administered and ophthalmic povidone-iodine 5% was instilled into the conjunctival fornices. Lidocaine gel was applied to the cornea and the francisco javier-ocular area was prepped with Betadine 10% solution and draped in the usual sterile fashion for intraocular surgery, including an aperture drape. A Tegaderm transparent film dressing was cut in half and used to cover the lashes and lid margins. Care was taken to sequester the lashes and lid margins under the Tegaderm dressing. A lid speculum was placed between the lids of the operative eye and the Lanre-Betsy operating microscope was maneuvered into position. Ezequiel scissors were then used to make a conjunctival buttonhole approximately 6mm posterior to the limbus in the inferonasal quadrant. Blunt dissection was carried out to expose bare sclera, and a blunt-tipped sub-tenon?s anesthesia cannula was introduced and passed posteriorly along the globe where non- preserved plain lidocaine was injected into posterior sub-Tenon?s space. A sideport knife was used to make a paracentesis port superior/superiortemporally. Intraocular phenylephrine/lidocaine was injected into the anterior chamber. The anterior chamber was then filled with Healon Pro. A 2.4mm keratome knife was used to create a half-thickness groove at the limbus and then to construct a three-plane near-clear corneal tunnel extending 2.0mm into clear cornea in the temporal position. . A flap was raised on the anterior capsule and capsulorhexis forceps were used to complete a continuous curvilinear capsulorhexis of 4.8 mm. Balanced salt solution was then used to perform cortical cleaving hydrodissec tion and nuclear hydrodelineation until the lens could be freely rotated within the capsular bag. The lens nucleus was then disassembled and removed within the capsular bag and iris plane using phacoemulsification. Residual cortical material was removed using the 45-degree angled silicone I/A tip with 0.3mm port. The posterior capsule was carefully polished to remove as much residual lens epithelial cells as safely possible. The capsular bag was then inflated and the anterior chamber deepened with viscoelastic. The lens implant described above was inserted into the capsular bag using the TRINI Cogswell Injector. A Kuglen hook was used to dial the IOL into position. Residual viscoelastic was then removed first from posterior to the IOL, then from the anterior chamber using the I/A handpiece. The lens implant was noted to center nicely within the capsular bag. The incisions were stromally hydrated, and the anterior chamber was reformed using BSS. Then 0.5cc of moxifloxacin 1.0mg/ml were injected into the capsular bag and anterior chamber. The incisions were checked with a Weck spear and found to be secure. Several drops of ophthalmic povidone-iodine 5% were then applied to the eye followed by two drops of Imprimis combination prednisolone/moxifloxacin/nepafenac solution. The drapes were removed and a clear plastic protective eye shield was placed over the eye. The patient was then returned to [facility] Day Surgery in stable condition.
[2019-11-23 08:15] VITALS: BP 137/83; PULSE 82; RESP 16; TEMP 36.4; O2SAT 95
== END 2019-11-23 08:20 | disposition home or self-care (01) ==
PROVIDERS: PCP Family Medicine; Visit Provider Ophthalmology
PROC: (CPT 66984; principal; 2019-11-23 07:30)
DX: H25.012 Cortical age-related cataract, left eye (principal); H25.12 Age-related nuclear cataract, left eye; Z98.41 Cataract extraction status, right eye; Z96.1 Presence of intraocular lens; E11.9 Type 2 diabetes mellitus without complications; I10 Essential (primary) hypertension
CPT/HCPCS: 66984; V2632

== ENCOUNTER 2019-12-13 03:53 | Outpatient (RCR) | payer MEDICARE, SELFPAY ==
[2019-11-22] MEDS: Normal Saline Flush 10 ML SYR IVP (11:17)
[2019-11-22] MEDS: Proteinase Inhibitor 5 VIAL in EMPTY EVACUATED CONTAINER 1 EACH 100 VIAL IVPB (11:55)
[2019-11-29] MEDS: Proteinase Inhibitor 5 VIAL in EMPTY EVACUATED CONTAINER 1 EACH 197 VIAL IVPB (11:42)
[2019-11-29] MEDS: Normal Saline Flush 10 ML SYR IVP (11:49)
[2019-12-06] MEDS: Normal Saline Flush 10 ML SYR IVP (11:25)
[2019-12-06] MEDS: Proteinase Inhibitor 5 VIAL in EMPTY EVACUATED CONTAINER 1 EACH 185 VIAL IVPB (11:46)
[2019-12-13] MEDS: Normal Saline Flush 10 ML SYR IVP (11:57)
[2019-12-13] MEDS: Proteinase Inhibitor 5 VIAL in EMPTY EVACUATED CONTAINER 1 EACH 100 VIAL IVPB (11:57)
== END 2019-12-17 23:59 | disposition home or self-care (01) ==
LOC: INF 03:53
PROVIDERS: PCP Family Medicine; Visit Provider Internal Medicine
DX: E88.01 Alpha-1-antitrypsin deficiency (principal)
CPT/HCPCS: 96365; J0257

== ENCOUNTER 2020-01-10 02:12 | Outpatient (RCR) | payer MEDICARE, SELFPAY ==
[2019-12-20] MEDS: Proteinase Inhibitor 5 VIAL in EMPTY EVACUATED CONTAINER 1 EACH 185 VIAL IVPB (11:40)
[2019-12-20] MEDS: Normal Saline Flush 10 ML SYR IVP (11:40)
[2020-01-03] MEDS: Normal Saline Flush 10 ML SYR IVP (11:30)
[2020-01-03] MEDS: Proteinase Inhibitor 5 VIAL in EMPTY EVACUATED CONTAINER 1 EACH 187 VIAL IVPB (11:38)
== END 2020-01-16 23:59 | disposition home or self-care (01) ==
LOC: INF 02:12
PROVIDERS: PCP Family Medicine; Visit Provider Internal Medicine
DX: E88.01 Alpha-1-antitrypsin deficiency (principal); Z23 Encounter for immunization
CPT/HCPCS: 96365; J0257

== ENCOUNTER 2020-01-25 12:24 | Emergency (ER) | payer MEDICARE, SELFPAY ==
--- NOTE | 2020-01-25 | DI.CT_ITS ---
EXAM: CT ABDOMEN PELVIS W CLINICAL HISTORY: b/l flank/groin pain,urinary frequency TECHNIQUE: COMPARISON: CT CT LUMBAR SPINE RECONS from 01/25/2020 FINDINGS: CT examination of the abdomen pelvis was with intravenous infusion of 1 cc of 350. Lumbar spine pravin nstructions were also obtained. There is marked hypertrophic degenerative changes throughout the lum bar spine. No evidence of acute fracture. Multilevel disc space narrowing and vacuum disc phenomena noted consistent with disc degeneration. Moderate biconvex thoracolumbar scoliosis noted. Images obtained through the lung bases show some areas of apparent scarring. Liver shows decreased attenuation consistent with hepatic steatosis. Spleen is unremarkable in appea david. There is a small hiatal hernia. Pancreas appears normal. Gallbladder and bile ducts are CT normal. Adrenals and kidneys appear inta ct with an incidental small presumed right renal cyst. No urinary tract obstruction or calcification . Urinary bladder is essentially empty. Uterus is atrophic or absent. Abdominal aorta is of normal diameter and major visceral branches appear intact. No abdominal or pelvic adenopathy. Tiny fat containing umbilical hernia. No other significant abdom inal wall hernia seen. Appendix is not visualized but there is no evidence of appendicitis or diverticulitis. IMPRESSION: No evidence of acute intra-abdominal process. Severe degenerative changes of the lumbar spine, no acute fracture. RADIATION DOSE DELIVERED: Total DLP
[2020-01-25 12:28] VITALS: BP 173/86; PULSE 80; RESP 18; TEMP 35.9; O2SAT 94
--- NOTE | 2020-01-25 12:52 | W.ED.GENAD ---
Discharge Plan Disposition Patient Disposition: HOME Condition: Improving Discharge Details Clinical Impression: Urinary frequency, Back pain, Degenerative joint disease of spine Primary Care Provider: Tori Seay ED Provider: Gia Guido Home Meds and New Rx's Prescriptions: New methocarbamol 500 mg tablet 500 mg PO Q6H PRN (Reason: muscle spasm) Qty: 14 RF: 0 Continued metformin 1,000 mg tablet 1,000 mg PO BID RF: 0 cholecalciferol (vitamin D3) 1,000 UNIT capsule 4,000 unit PO DAILY RF: 0 iodizyme 6.25 mg PO DAILY RF: 0 losartan 50 MG tablet 50 mg PO DAILY Qty: 30 RF: 6 levothyroxine 75 MCG tablet 75 mcg PO DAILY Qty: 30 RF: 6 hydrochlorothiazide 25 MG tablet 25 mg PO DAILY Qty: 30 RF: 6 albuterol sulfate [ProAir HFA] 200 PUFF HFA aerosol inhaler 2 puff Inhalation Q4H PRNQty: 1 RF: 0 Trelegy Ellipta 100-62.5-25 mcg Blister With Device 1 inh INHALATION QAM RF: 0 glipizide 10 mg tablet 10 mg PO DAILY RF: 0 magnesium 250 mg Tablet 500 mg PO DAILY RF: 0 vitamin E00-dabuf acid 1,000-400 mcg Tablet, Sublingual 1 tab SUBLINGUAL DAILY RF: 0 Discharge Instructions Instructions: Back Pain (ED), Urinary Urgency and Frequency (DC) Additional Instructions: Drink plenty of fluids and get plenty of rest. Alternate tylenol and motrin as needed and directed for pain. Take the methocarbamol as directed. Call your primary care doctor's office on Tuesday to schedule follow-up appointment for reevaluation and for referral for outpatient lumbar spine MRI if her symptoms do not improve or worsen. Call urology office of Dr. Olvera for follow-up appointment for your urinary frequency. Referrals: Prasanna Olvera MD [ [facility] STAFF PHYSICIAN] - Discharge Data Discharge Date/Time-TO BE ENTERED AT DEPARTURE: 01/25/20 16:39 Discharge Physician: Gia Guido Medical Decision Making 69-year-old female with a history of COPD, alpha-1 antitrypsin deficiency, diabetes, hypertension who presents to the ED with a complaint of urinary frequency, suprapubic pressure, lower back pain and bilateral flank pain for the past few days. No cauda equina symptoms. No fever or vomiting. She has mild suprapubic tenderness. She has bilateral lumbar paraspinal tenderness. No focal deficits. Neurovascular intact. Differential diagnosis includes UTI, pyelonephritis, lumbar strain, osteoarthritis, etc. Will place an IV, bolus IV fluids, screening labs, urinalysis and CT abdomen and pelvis with lumbar reconstruction and will give a dose of Toradol and Lidoderm patch and reassess. Labs and imaging reviewed. Urinalysis negative. CT abdomen and pelvis negative for acute findings. Lumbar spine notes severe degenerative changes. Patient reassessed and she states she feels much better. Discussed with patient that her symptoms could be due to lumbar degenerative disc disease, but her urinary frequency could be associated with interstitial cystitis or another noninfectious etiology. We will send home with a prescription for methocarbamol. Patient advised to alternate ice and heat to her back. She is advised to call her PCP for reevaluation and referral for outpatient lumbar spine MRI if symptoms persist or worsen. Patient also was placed on urology Dr. Olvera's list for further evaluation of her urinary frequency. Usual and customary return precautions given prior to discharge. Medical Records Medical records reviewed: Yes I reviewed the patient's medical records. Imaging Data Radiologic Study: Radiologist's impression: CT ABDOMEN PELVIS W CLINICAL HISTORY: b/l flank/groin pain,urinary frequency TECHNIQUE: COMPARISON: CT CT LUMBAR SPINE RECONS from 01/25/2020 FINDINGS: CT examination of the abdomen pelvis was with intravenous infusion of 1 cc of 350. Lumbar spine reconstructions were also obtained. There is marked hypertrophic degenerative changes throughout the lumbar spine. No evidence of acute fracture. Multilevel disc space narrowing and vacuum disc phenomena noted consistent with disc degeneration. Moderate biconvex thoracolumbar scoliosis noted. Images obtained through the lung bases show some areas of apparent scarring. Liver shows decreased attenuation consistent with hepatic steatosis. Spleen is unremarkable in appearance. There is a small hiatal hernia. Pancreas appears normal. Gallbladder and bile ducts are CT normal. Adrenals and kidneys appear intact with an incidental small presumed right renal cyst. No urinary tract obstruction or calcification. Urinary bladder is essentially empty. Uterus is atrophic or absent. Abdominal aorta is of normal diameter and major visceral branches appear intact. No abdominal or pelvic adenopathy. Tiny fat containing umbilical hernia. No other significant abdominal wall hernia seen. Appendix is not visualized but there is no evidence of appendicitis or diverticulitis. IMPRESSION: No evidence of acute intra-abdominal process. Severe degenerative changes of the lumbar spine, no acute fracture. Lab Data Lab results reviewed: Yes I reviewed the patient's lab results. Labs: Laboratory Tests Range/Units 01/25/20 01/25/20 01/25/20 12:45 13:00 13:00 WBC (4.4-10.8) 10^3/uL 8.78 RBC (3.93-5.22) 10^6/uL 4.99 Hgb (11.2-15.7) g/dL 15.9 H Hct (36.0-46.0) % 47.2 H MCV (80-95) fL 94.6 MCH (27.0-33.0) pg 31.9 MCHC (32.0-36.0) % 33.7 RDW (11.7-14.6) % 12.6 Plt Count (130-400) 10^3/uL 325 MPV (8.0-11.0) fL 10.6 Immature Gran % 0.2 Neutrophils % 61.3 Lymphocytes % 21.2 Monocytes % 15.1 Eosinophils % 1.6 Basophils % 0.6 Nucleated RBC % % 0 Absolute Neutrophils (1.2-6.7) 10^3/uL 5.38 Absolute Lymphocytes (1.2-3.4) 10^3/uL 1.86 Absolute Monocytes (0.1-0.8) 10^3/uL 1.33 H Absolute Eosinophils (0.0-0.7) 10^3/uL 0.14 Absolute Basophils (0.0-0.2) 10^3/uL 0.05 Sodium (136-145) mmol/L 139 Potassium (3.5-5.1) mmol/L 3.8 Chloride (98-107) mmol/L 102 Carbon Dioxide (21.0-32.0) mmol/L 28.1 Anion Gap (3-11) mmol/L 8.9 BUN (7-18) mg/dL 14 Creatinine (0.55-1.02) mg/dL 1.04 H Estimated GFR/1.73 m2 (mL/min/1.73m2) 52.86 Glucose (74-106) mg/dL 140 H Calcium (8.5-10.1) mg/dL 9.7 Total Bilirubin (0.2-1.0) mg/dL 0.5 AST (15-37) U/L 23 ALT (14-59) U/L 37 Alkaline Phosphatase (46-116) U/L 97 Total Protein (6.4-8.2) g/dL 8.4 H Albumin (3.4-5.0) g/dL 3.6 Lipase (73-393) U/L 328 Urine Color (Yellow) Yellow Urine Clarity (Clear) Clear Urine pH (5-8) 5.5 Ur Specific Howard (1.005-1.025) >= 1.030 H Urine Protein (Negative) mg/dL Negative Urine Ketones (Negative) mg/dL Trace H Urine Blood (Negative) Negative Urine Nitrite (Negative) Negative Urine Bilirubin (Negative) Negative Urine Urobilinogen (Up TO 0.2) EU/dL 0.2 Ur Leukocyte Esterase (Negative) Negative Urine Glucose (Negative) mg/dL Negative HPI General Mode of arrival: ambulatory. Date/Time Provider Initiated Documentation: 01/25/20 12:30. Limitations to Documentation: no limitations. Information obtained by: patient. HPI Narrative: Patient is a 69-year-old female with a history of alpha-1 antitrypsin deficiency, COPD, diabetes and hypertension who presents with flank pain for the past 5 days now with urinary urgency and frequency for the past few days. Patient states the flank pain started on the left side and now also involves the right side. Patient states the pain now radiates around to her bilateral groin and suprapubic region. She states she feels that she has an urge to urinate and is urinating more frequently and has a strong odor. She denies any fever, nausea, vomiting, diarrhea, dysuria, hematuria. She states she has a history of chronic back pain associated with arthritis and denies any known recent injury. Related Data Home Medications Medication Instructions Recorded Confirmed cholecalciferol (vitamin D3) 4,000 unit PO DAILY 06/27/14 01/25/20 Iodizyme 6.25 mg PO DAILY 07/24/14 01/25/20 hydrochlorothiazide 25 mg PO DAILY #30 tab-cap 12/19/14 01/25/20 levothyroxine 75 mcg PO DAILY #30 tab-cap 12/19/14 01/25/20 losartan 50 mg PO DAILY #30 tab-cap 12/19/14 01/25/20 albuterol sulfate [ProAir HFA] 2 puff INHALATION Q4H PRN #1 inh 07/17/15 01/25/20 metformin 1,000 mg tablet 1,000 mg PO BID 07/10/19 01/25/20 Trelegy Ellipta 1 inh INHALATION QAM 11/07/19 01/25/20 glipizide 10 mg PO DAILY 01/25/20 01/25/20 magnesium 500 mg PO DAILY 01/25/20 01/25/20 methocarbamol 500 mg PO Q6H PRN #14 tab 01/25/20 vitamin [id number] acid 1 tab SUBLINGUAL DAILY 01/25/20 01/25/20 Previous Rx's Medication Instructions Recorded albuterol sulfate [ProAir HFA] 2 puff INHALATION Q4H PRN #1 inh 07/17/15 methocarbamol 500 mg PO Q6H PRN #14 tab 01/25/20 Allergies Allergy/AdvReac Type Severity Reaction Status Date / Time meperidine HCl [From Demerol] AdvReac Intermediate agitated Unverified 01/25/20 12:33 and ugly tetracycline AdvReac Intermediate upsets Unverified 01/25/20 12:33 stomach amitriptyline AdvReac Mild adverse Unverified 01/25/20 12:33 effect lisinopril AdvReac Mild cough Unverified 01/25/20 12:33 General Stated Complaint: Urinary IGGY: 3 Review of Systems All systems reviewed & are unremarkable except as noted in HPI and below Constitutional Constitutional: Reports as per HPI, Denies chills and Denies fever(s) Eyes Eyes: Denies blurry vision ENT Ears, Nose, Mouth, and Throat: Denies dizziness, Denies sore throat and Denies throat swelling Cardiovascular Cardiovascular: Denies chest pain and Denies dyspnea Respiratory Respiratory: Denies cough and Denies dyspnea Gastrointestinal Gastrointestinal: Denies abdominal pain, Denies diarrhea and Denies vomiting Genitourinary Genitourinary: Denies hematuria, Denies dysuria, Reports urinary urgency and Reports other (urinary frequency) Musculoskeletal Musculoskeletal: Reports back pain and Denies numbness Integumentary/Breasts Skin/Breast: Denies lesions and Denies rash Neurologic Neurologic: Denies dizziness, Denies localized weakness and Denies numbness Allergic/Immunologic Allergic/Immunologic: Denies throat swelling PFSH Medical History (Updated 01/25/20 @ 16:17 by iGa Guido DO) Qwudw-1-epggbmrrxbn deficiency recieves Prolastin infusion daily [facility] COPD (chronic obstructive pulmonary disease) Diabetes 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 Hiatal hernia Hx of bronchiectasis Hypertension Surgical History (Updated 11/23/19 @ 07:57 by Holger Marquez MD) Abdominal hysterectomy (~1985) LINDA/BSO Appendectomy (~1968) CYSTECTOMY (~01/2004) L BR CYST REMOVED Endoscopy (12/22/04) History of cataract surgery LATERAL EPICONDYLE SURGERY (04/30/03) Open Carpal Tunnel release (~12/1999) LEFT RIGHT ANKLE AND KNEE SURGERY (10/16/95) Rotator Cuff Repair (09/22/07) RIGHT TKA (03/27/10) RIGHT Family History Mother COPD (chronic obstructive pulmonary disease) MS (multiple sclerosis) Father Essential hypertension CAD (coronary artery disease) Alzheimer disease Grandfather Diabetes Personal history of malignant neoplasm PROSTATE Mental disorder DEMENTIA Grandfather Essential hypertension Heart disease Grandmother Essential hypertension Stroke Grandmother Essential hypertension Alzheimer disease Social History Smoking/Tobacco Use Status: Former Tobacco Use Quit Date: 04/18/01 Alcohol Intake: current Alcohol Intake frequency: holidays/special occasions only Alcohol type: beer Drug use: Never Substance use type: does not use Do you feel safe at home: Yes Do you feel safe in your relationship?: Yes Exam Const General: cooperative, healthy appearing and no acute [facility]: normal to inspection Face and sinus: normal facial exam Eyes General: appearance normal, both eyes and all related structures Pupils: PERRL EOM: EOM intact bilaterally Neck Neck: normal visual inspection and No submandibular swelling Lymphatic: no lymphadenopathy noted Chest Chest: normal inspection of the chest and no tenderness Resp Effort & Inspection: normal respiratory effort and able to speak in complete sentences Auscultation: clear to auscultation bilaterally Cardio Rate: regular rate Rhythm: regular rhythm GI Inspection: normal to inspection Palpation: soft, not firm, not rigid and nontender Auscultation: normal bowel sounds Back/Spine/Pelvis Thoracic/Lumbar Spine: thoracic and lumbar spine normal to inspection Pelvis: no pain with anterior-posterior compression Skin General skin exam: no rashes or lesions noted Neuro General: patient alert, patient awake and patient oriented x3 Cognition: normal cognition Speech: speech normal Motor: muscle tone normal throughout Sensory Exam: no sensory deficits noted Extrem General: normal to inspection, full ROM, capillary refill normal, no calf tenderness bilaterally and no edema Psych Appearance: grossly normal Mental Status: mental status grossly normal Speech and Movement: speech and movement normal Affect: normal affect Course Vital Signs Vital signs: Vital Signs Temperature 96.6 F L 01/25/20 12:28 Pulse 80 01/25/20 12:28 Respiratory Rate 18 01/25/20 12:28 Blood Pressure 173/86 H 01/25/20 12:28 Pulse Oximetry 94 01/25/20 12:28 Temperature 96.6 F L 01/25/20 12:28 Temperature Source Temporal Artery Scan 01/25/20 12:28 Pulse 80 01/25/20 12:28 Respiratory Rate 18 01/25/20 12:28 Blood Pressure 173/86 H 01/25/20 12:28 Blood Pressure Position Sitting 01/25/20 12:28 Pulse Oximetry 94 01/25/20 12:28 Oxygen Delivery Method Room Air 01/25/20 12:28 Oxygen Flow Rate 0 01/25/20 12:28 Pain Level 5 01/25/20 12:28
[2020-01-25 12:56] LABS: Bilirubin Negative (Negative); Blood Negative (Negative); Clarity Clear (Clear); Glucose Negative (Negative); Ketones Trace mg/dL (Negative); Leukocyte Esterase Negative (Negative); Nitrite Negative (Negative); Specific Gravity >= 1.030 (1.005-1.025); Urobilinogen 0.2 EU/dL (Up TO 0.2); pH 5.5 (5-8)
[2020-01-25 13:13] LABS: Abs Immature Grans 0.02 10^3/uL (0.0-0.06); Absolute Basophil Count 0.05 10^3/uL (0.0-0.2); Absolute Eosinophil Count 0.14 10^3/uL (0.0-0.7); Absolute Lymphocyte Count 1.86 10^3/uL (1.2-3.4); Absolute Monocyte Count 1.33 10^3/uL (0.1-0.8); Absolute Neutrophil Count 5.38 10^3/uL (1.2-6.7); Basophils % 0.6; Eosinophils % 1.6; HCT 47.2 % (36.0-46.0); HGB 15.9 g/dL (11.2-15.7); Immature Grans % 0.2; Lymphocytes % 21.2; MCH 31.9 pg (27.0-33.0); MCHC 33.7 % (32.0-36.0); MCV 94.6 fL (80-95); MPV 10.6 fL (8.0-11.0); Monocytes % 15.1; Neutrophils % 61.3; Nucleated RBC 0 %; Platelet Count 325 10^3/uL (130-400); RBC 4.99 10^6/uL (3.93-5.22); RDW 12.6 % (11.7-14.6); RDW-SD 44.2 fL; WBC 8.78 10^3/uL (4.4-10.8)
[2020-01-25 13:26] LABS: ALT 37 U/L (14-59); AST 23 U/L (15-37); Albumin 3.6 g/dL (3.4-5.0); Alkaline Phosphatase 97 U/L (46-116); Anion Gap 8.9 mmol/L (3-11); BUN 14 mg/dL (7-18); Bilirubin, Total 0.5 mg/dL (0.2-1.0); CO2 28.1 mmol/L (21.0-32.0); CREATININE 1.04 mg/dL (0.55-1.02); Calcium 9.7 mg/dL (8.5-10.1); Chloride 102 mmol/L (98-107); Estimated GFR 52.86 (mL/min/1.73m2); Glucose 140 mg/dL (74-106); Lipase 328 U/L (73-393); Potassium 3.8 mmol/L (3.5-5.1); Sodium 139 mmol/L (136-145); Total Protein 8.4 g/dL (6.4-8.2)
[2020-01-25] MEDS: Ketorolac 30 MG/ML VIAL IVP (14:05)
[2020-01-25] MEDS: Lidocaine 5% Patch 1 PATCH TP (14:05)
[2020-01-25] MEDS: Normal Saline 1,000 ML 1000 ML IV (14:06)
[2020-01-25] MEDS: Normal Saline - Diluent 50 ML VIAL IV (14:28)
[2020-01-25] MEDS: Omnipaque 350 MG/ML 100 ML BTL IJ (14:29)
[2020-01-25 16:34] VITALS: BP 145/76; PULSE 70; RESP 22; TEMP 36.4; O2SAT 95
--- NOTE | 2020-01-25 19:02 | NUR.NOTE ---
referral faxed to specialty clinic-urologyNursing Note:
== END 2020-01-25 16:39 | disposition home or self-care (01) ==
PROVIDERS: Emergency Provider Physician Assistant; PCP Family Medicine
DX: R35.0 Frequency of micturition (principal); R10.30 Lower abdominal pain, unspecified; M47.816 Spondylosis without myelopathy or radiculopathy, lumbar region; E88.01 Alpha-1-antitrypsin deficiency; I10 Essential (primary) hypertension; J44.9 Chronic obstructive pulmonary disease, unspecified; Z87.891 Personal history of nicotine dependence; E11.9 Type 2 diabetes mellitus without complications; Z79.84 Long term (current) use of oral hypoglycemic drugs
CPT/HCPCS: 36415; 80053; 83690; 96361; 96374; 99285; 74177; 81003; 85025; J1885; J3490

== ENCOUNTER 2020-02-14 01:37 | Outpatient (RCR) | payer MEDICARE, SELFPAY ==
[2020-01-17] MEDS: Normal Saline Flush 10 ML SYR IVP (11:55)
[2020-01-17] MEDS: Proteinase Inhibitor 5 VIAL in EMPTY EVACUATED CONTAINER 1 EACH 185 VIAL IVPB (11:55)
[2020-01-24] MEDS: Proteinase Inhibitor 5 VIAL in EMPTY EVACUATED CONTAINER 1 EACH 185 VIAL IVPB (11:41)
[2020-01-24] MEDS: Normal Saline Flush 10 ML SYR IVP (11:41)
[2020-01-31] MEDS: Normal Saline Flush 10 ML SYR IVP (13:30)
[2020-01-31] MEDS: Proteinase Inhibitor 5 VIAL in EMPTY EVACUATED CONTAINER 1 EACH 100 VIAL IVPB (13:37)
[2020-02-08] MEDS: Proteinase Inhibitor 5 VIAL in EMPTY EVACUATED CONTAINER 1 EACH 100 VIAL IVPB (11:58)
[2020-02-08] MEDS: Normal Saline Flush 10 ML SYR IVP (11:59)
[2020-02-14] MEDS: Normal Saline Flush 10 ML SYR IVP (11:43)
[2020-02-14] MEDS: Proteinase Inhibitor 5 VIAL in EMPTY EVACUATED CONTAINER 1 EACH 100 VIAL IVPB (11:43)
== END 2020-02-16 23:59 | disposition home or self-care (01) ==
LOC: INF 01:37
PROVIDERS: PCP Family Medicine; Visit Provider Internal Medicine
DX: E88.01 Alpha-1-antitrypsin deficiency (principal)
CPT/HCPCS: 96365; J0257

== ENCOUNTER 2020-03-14 05:15 | Outpatient (RCR) | payer MEDICARE, SELFPAY ==
[2020-02-21] MEDS: Normal Saline Flush 10 ML SYR IVP (11:41)
[2020-02-21] MEDS: Proteinase Inhibitor 5 VIAL in EMPTY EVACUATED CONTAINER 1 EACH 100 VIAL IVPB (11:41)
[2020-02-28] MEDS: Proteinase Inhibitor 5 VIAL in EMPTY EVACUATED CONTAINER 1 EACH 100 VIAL IVPB (11:39)
[2020-02-28] MEDS: Normal Saline Flush 10 ML SYR IVP (11:39)
[2020-03-06] MEDS: Normal Saline Flush 10 ML SYR IVP (11:49)
[2020-03-06] MEDS: Proteinase Inhibitor 5 VIAL in EMPTY EVACUATED CONTAINER 1 EACH 100 VIAL IVPB (11:49)
[2020-03-14] MEDS: Proteinase Inhibitor 5 VIAL in EMPTY EVACUATED CONTAINER 1 EACH 100 VIAL IVPB (11:54)
[2020-03-14] MEDS: Normal Saline Flush 10 ML SYR IVP (11:54)
== END 2020-03-17 23:59 | disposition home or self-care (01) ==
LOC: INF 05:15
PROVIDERS: PCP Family Medicine; Visit Provider Internal Medicine
DX: E88.01 Alpha-1-antitrypsin deficiency (principal)
CPT/HCPCS: 96365; J0257

== ENCOUNTER 2020-04-17 02:25 | Outpatient (RCR) | payer MEDICARE, SELFPAY ==
[2020-03-20] MEDS: Normal Saline Flush 10 ML SYR IVP (11:34)
[2020-03-20] MEDS: Proteinase Inhibitor 5 VIAL in EMPTY EVACUATED CONTAINER 1 EACH 100 VIAL IVPB (11:34)
[2020-03-27] MEDS: Proteinase Inhibitor 5 VIAL in EMPTY EVACUATED CONTAINER 1 EACH 100 VIAL IVPB (11:37)
[2020-03-27] MEDS: Normal Saline Flush 10 ML SYR IVP (11:37)
[2020-04-03] MEDS: Proteinase Inhibitor 5 VIAL in EMPTY EVACUATED CONTAINER 1 EACH 100 VIAL IVPB (11:42)
[2020-04-03] MEDS: Normal Saline Flush 10 ML SYR IVP (11:42)
[2020-04-08 11:56] LABS: TSH (W/Ref FT4) 2.05 uIU/mL (0.36-3.74)
[2020-04-08] MEDS: Proteinase Inhibitor 5 VIAL in EMPTY EVACUATED CONTAINER 1 EACH 100 VIAL IVPB (12:00)
[2020-04-08] MEDS: Normal Saline Flush 10 ML SYR IVP (12:00)
[2020-04-17] MEDS: Normal Saline Flush 10 ML SYR IVP (11:46)
[2020-04-17] MEDS: Proteinase Inhibitor 5 VIAL in EMPTY EVACUATED CONTAINER 1 EACH 195 VIAL IVPB (11:46)
== END 2020-04-17 23:59 | disposition home or self-care (01) ==
LOC: INF 02:25
PROVIDERS: PCP Family Medicine; Visit Provider Internal Medicine
DX: E88.01 Alpha-1-antitrypsin deficiency (principal); E03.9 Hypothyroidism, unspecified
CPT/HCPCS: 36415; 96365; 84443; J0257

== ENCOUNTER 2020-05-15 02:19 | Outpatient (RCR) | payer MEDICARE, SELFPAY ==
[2020-04-24] MEDS: Proteinase Inhibitor 5 VIAL in EMPTY EVACUATED CONTAINER 1 EACH 195 VIAL IVPB (11:39)
[2020-04-24] MEDS: Normal Saline Flush 10 ML SYR IVP (11:39)
[2020-05-01] MEDS: Proteinase Inhibitor 5 VIAL in EMPTY EVACUATED CONTAINER 1 EACH 196 VIAL IVPB (11:39)
[2020-05-01] MEDS: Normal Saline Flush 10 ML SYR IVP (11:39)
[2020-05-08] MEDS: Proteinase Inhibitor 5 VIAL in EMPTY EVACUATED CONTAINER 1 EACH 100 VIAL IVPB (11:50)
[2020-05-08] MEDS: Normal Saline Flush 10 ML SYR IVP (11:51)
[2020-05-15] MEDS: Normal Saline Flush 10 ML SYR IVP (11:37)
[2020-05-15] MEDS: Proteinase Inhibitor 5 VIAL in EMPTY EVACUATED CONTAINER 1 EACH 195 VIAL IVPB (11:37)
== END 2020-05-18 23:59 | disposition home or self-care (01) ==
LOC: INF 02:19
PROVIDERS: PCP Family Medicine; Visit Provider Internal Medicine
DX: E88.01 Alpha-1-antitrypsin deficiency (principal)
CPT/HCPCS: 96365; J0257

== ENCOUNTER 2020-06-12 02:38 | Outpatient (RCR) | payer MEDICARE, SELFPAY ==
[2020-05-22] MEDS: Normal Saline Flush 10 ML SYR IVP (11:40)
[2020-05-22] MEDS: Proteinase Inhibitor 5 VIAL in EMPTY EVACUATED CONTAINER 1 EACH 185 VIAL IVPB (12:18)
[2020-05-29] MEDS: Proteinase Inhibitor 5 VIAL in EMPTY EVACUATED CONTAINER 1 EACH 100 VIAL IVPB (12:10)
[2020-05-29] MEDS: Normal Saline Flush 10 ML SYR IVP (12:10)
[2020-06-05] MEDS: Normal Saline Flush 10 ML SYR IVP (11:52)
[2020-06-05] MEDS: Proteinase Inhibitor 5 VIAL in EMPTY EVACUATED CONTAINER 1 EACH 196 VIAL IVPB (11:52)
[2020-06-12] MEDS: Proteinase Inhibitor 5 VIAL in EMPTY EVACUATED CONTAINER 1 EACH 100 VIAL IVPB (11:43)
[2020-06-12] MEDS: Normal Saline Flush 10 ML SYR IVP (11:48)
== END 2020-06-15 23:59 | disposition home or self-care (01) ==
LOC: INF 02:38
PROVIDERS: PCP Family Medicine; Visit Provider Internal Medicine
DX: E88.01 Alpha-1-antitrypsin deficiency (principal)
CPT/HCPCS: 96365; J0257

== ENCOUNTER 2020-07-10 02:27 | Outpatient (RCR) | payer MEDICARE, SELFPAY ==
[2020-06-19] MEDS: Proteinase Inhibitor 5 VIAL in EMPTY EVACUATED CONTAINER 1 EACH 100 VIAL IVPB (11:34)
[2020-06-19] MEDS: Normal Saline Flush 10 ML SYR IVP (11:34)
[2020-06-26] MEDS: Normal Saline Flush 10 ML SYR IVP (11:33)
[2020-06-26] MEDS: Proteinase Inhibitor 5 VIAL in EMPTY EVACUATED CONTAINER 1 EACH 100 VIAL IVPB (11:33)
[2020-07-03] MEDS: Normal Saline Flush 10 ML SYR IVP (11:15)
[2020-07-03] MEDS: Proteinase Inhibitor 5 VIAL in EMPTY EVACUATED CONTAINER 1 EACH 100 VIAL IVPB (11:44)
[2020-07-10] MEDS: Proteinase Inhibitor 5 VIAL in EMPTY EVACUATED CONTAINER 1 EACH 100 VIAL IVPB (11:58)
[2020-07-10] MEDS: Normal Saline Flush 10 ML SYR IVP (11:58)
== END 2020-07-16 23:59 | disposition home or self-care (01) ==
LOC: INF 02:27
PROVIDERS: PCP Family Medicine; Visit Provider Internal Medicine
DX: E88.01 Alpha-1-antitrypsin deficiency (principal); Z23 Encounter for immunization
CPT/HCPCS: 90471; 96365; 96372; 96374; J0257

== ENCOUNTER 2020-08-14 01:43 | Outpatient (RCR) | payer MEDICARE, SELFPAY ==
[2020-07-18] MEDS: Proteinase Inhibitor 5 VIAL in EMPTY EVACUATED CONTAINER 1 EACH 100 VIAL IVPB (11:53)
[2020-07-18] MEDS: Normal Saline Flush 10 ML SYR IVP (11:53)
[2020-07-25] MEDS: Proteinase Inhibitor 5 VIAL in EMPTY EVACUATED CONTAINER 1 EACH 100 VIAL IVPB (12:50)
[2020-07-25] MEDS: Normal Saline Flush 10 ML SYR IVP (12:50)
[2020-07-31] MEDS: Normal Saline Flush 10 ML SYR IVP (11:39)
[2020-07-31] MEDS: Proteinase Inhibitor 5 VIAL in EMPTY EVACUATED CONTAINER 1 EACH 100 VIAL IVPB (11:39)
[2020-08-07] MEDS: Proteinase Inhibitor 5 VIAL in EMPTY EVACUATED CONTAINER 1 EACH 100 VIAL IVPB (11:46)
[2020-08-07] MEDS: Normal Saline Flush 10 ML SYR IVP (11:47)
[2020-08-14] MEDS: Normal Saline Flush 10 ML SYR IVP (11:15)
[2020-08-14] MEDS: Proteinase Inhibitor 5 VIAL in EMPTY EVACUATED CONTAINER 1 EACH 100 VIAL IVPB (11:43)
== END 2020-08-15 23:59 | disposition home or self-care (01) ==
LOC: INF 01:43
PROVIDERS: PCP Family Medicine; Visit Provider Internal Medicine
DX: E88.01 Alpha-1-antitrypsin deficiency (principal)
CPT/HCPCS: 96374; J0257

== ENCOUNTER 2020-09-11 02:11 | Outpatient (RCR) | payer MEDICARE, SELFPAY ==
[2020-08-21] MEDS: Proteinase Inhibitor 5 VIAL in EMPTY EVACUATED CONTAINER 1 EACH 100 VIAL IVPB (11:53)
[2020-08-21] MEDS: Normal Saline Flush 10 ML SYR IVP (11:53)
[2020-08-28] MEDS: Proteinase Inhibitor 5 VIAL in EMPTY EVACUATED CONTAINER 1 EACH 100 VIAL IVPB (11:51)
[2020-08-28] MEDS: Normal Saline Flush 10 ML SYR IVP (11:51)
[2020-09-04] MEDS: Normal Saline Flush 10 ML SYR IVP (11:28)
[2020-09-04] MEDS: Proteinase Inhibitor 5 VIAL in EMPTY EVACUATED CONTAINER 1 EACH 100 VIAL IVPB (11:42)
[2020-09-11] MEDS: Proteinase Inhibitor 5 VIAL in EMPTY EVACUATED CONTAINER 1 EACH 100 VIAL IVPB (11:30)
[2020-09-11] MEDS: Normal Saline Flush 10 ML SYR IVP (11:30)
== END 2020-09-15 23:59 | disposition home or self-care (01) ==
LOC: INF 02:11
PROVIDERS: PCP Family Medicine; Visit Provider Internal Medicine
DX: E88.01 Alpha-1-antitrypsin deficiency (principal)
CPT/HCPCS: 96374; J0257

== ENCOUNTER 2020-09-24 11:52 | Emergency (ER) | payer MEDICARE, SELFPAY ==
[2020-09-24] VITALS (52 sets, daily range): BP systolic 133–149; BP diastolic 71–77; PULSE 89–102; RESP 10–26; TEMP 36.6; O2SAT 94–100
--- NOTE | 2020-09-24 12:15 | DI.RAD_ITS ---
Exam(s) XR CHEST 2V PA LATERAL EXAM: XR CHEST 2V PA LATERAL CLINICAL HISTORY: COPD exacerbation, cough TECHNIQUE: 2D digital imaging was performed. COMPARISON: CR CHEST 2 VIEWS PA,LAT from 12/13/2017 CR CHEST 2 VIEWS PA,LAT from 12/13/2017 FINDINGS: MEDIASTINUM: Normal. HEART: Normal. PULMONARY VASCULATURE: Normal. LUNGS: Parenchymal scarring is present. No focal consolidation is seen. PLEURAL SPACE: No pleural effusion or pneumothorax. BONE:Within normal limits for the patient's age. Postsurgical changes are seen in the right shoulder . OTHER FINDINGS:Normal. IMPRESSION: No acute pulmonary findings. DATA REPOSITORY: RADIATION DOSE DELIVERED:
--- NOTE | 2020-09-24 12:15 | RT.EKG_ITS ---
APPROVED REPORT Exam: Resting ECG Reason for Exam: shortness of breath Patient Location: E HR:96 bpm ECG Measurements Heart Rate 96 AXIS VT 171 P 68 QRSd 77 QRS -6 QT 332 T 61 QTc 420 Conclusion Sinus rhythm...normal P axis, V-rate 60- 99 Low voltage, precordial leads...precordial leads <1.0mV
--- NOTE | 2020-09-24 12:31 | ED.GENADUL_ITS ---
Discharge Plan Disposition Patient Disposition: HOME Condition: Improving Discharge Details Clinical Impression: COPD with acute exacerbation Primary Care Provider: Tori Seay ED Provider: Onesimo Beauchamp Home Meds and New Rx's Prescriptions: New azithromycin 250 mg tablet See Rx Instructions .ROUTE .COMPLEX Qty: 6 RF: 0 prednisone 10 mg tablet 10 mg PO DAILY Qty: 18 RF: 0 Continued metformin 1,000 mg tablet 1,000 mg PO BID RF: 0 cholecalciferol (vitamin D3) 1,000 UNIT capsule 4,000 unit PO DAILY RF: 0 iodizyme 6.25 mg PO DAILY RF: 0 losartan 50 MG tablet 50 mg PO DAILY Qty: 30 RF: 6 levothyroxine 75 MCG tablet 75 mcg PO DAILY Qty: 30 RF: 6 hydrochlorothiazide 25 MG tablet 25 mg PO DAILY Qty: 30 RF: 6 albuterol sulfate [ProAir HFA] 200 PUFF HFA aerosol inhaler 2 puff Inhalation Q4H PRNQty: 1 RF: 0 Trelegy Ellipta 100-62.5-25 mcg Blister With Device 1 inh INHALATION QAM RF: 0 glipizide 10 mg tablet 10 mg PO DAILY RF: 0 magnesium 250 mg Tablet 500 mg PO DAILY RF: 0 vitamin R12-cddtz acid 1,000-400 mcg Tablet, Sublingual 1 tab SUBLINGUAL DAILY RF: 0 methocarbamol 500 mg tablet 500 mg PO Q6H PRN (Reason: muscle spasm) Qty: 14 RF: 0 Discharge Instructions Instructions: COPD (Chronic Obstructive Pulmonary Disease) (ED) Additional Instructions: As we discussed we will take a jryz-qgk-nzs approach for the use of antibiotics. Take antibiotics if you develop a fever, worsening cough with production of sputum over the next 24 hours. Take prednisone as prescribed. Follow-up with [facility] if not improving in 3 to 5 days time. Return to the ER for any acute concerns. Medical Decision Making 69-year-old female with oxygen dependent COPD presents with 3 days of cough, congestion, now production of yellow sputum. She arrives to the ER oxygenating normally on her home levels of O2. Patient diagnosis includes bronchitis, COPD exacerbation, pneumonia.'s IV access established, screening labs obtained, patient given parenteral steroids, DuoNeb updraft x2 and referred for laboratory testing and chest x-ray. Chest x-ray does not reveal acute pulmonary findings. Her laboratories are reassuring. Patient improved significantly with breathing treatment. We discussed ongoing management including a brief burst and taper of prednisone 40 mg. She will use a nrob-rgg-bsf approach to the use of antibiotics. She will return to the ER for any acute concerns. HPI General Mode of arrival: ambulatory . Date/Time Provider Initiated Documentation: 09/24/20 12:03 . Limitations to Documentation: no limitations . Information obtained by: patient . History of Present Illness 69 year old F presents to the emergency department with the chief complaint of Cough and shortness of breath, described as moderate, and is localized to the chest. Patient reports no radiation. Patient started experiencing this day(s) and it has been constant. No relieving factors improve symptom(s), No exacerbating factors reported . Patient notes cough and shortness of breath; denies fever/chills and syncope. Patient did receive the following treatments prior to arrival, none Related Data Home Medications Medication Instructions Recorded Confirmed cholecalciferol (vitamin D3) 4,000 unit PO DAILY 06/27/14 01/25/20 Iodizyme 6.25 mg PO DAILY 07/24/14 01/25/20 hydrochlorothiazide 25 mg PO DAILY #30 tab-cap 12/19/14 01/25/20 levothyroxine 75 mcg PO DAILY #30 tab-cap 12/19/14 01/25/20 losartan 50 mg PO DAILY #30 tab-cap 12/19/14 01/25/20 albuterol sulfate [ProAir HFA] 2 puff INHALATION Q4H PRN #1 inh 07/17/15 01/25/20 metformin 1,000 mg tablet 1,000 mg PO BID 07/10/19 01/25/20 Trelegy Ellipta 1 inh INHALATION QAM 11/07/19 01/25/20 glipizide 10 mg PO DAILY 01/25/20 01/25/20 magnesium 500 mg PO DAILY 01/25/20 01/25/20 methocarbamol 500 mg PO Q6H PRN #14 tab 01/25/20 vitamin W90-hcgzr acid 1 tab SUBLINGUAL DAILY 01/25/20 01/25/20 azithromycin See Rx Instructions .ROUTE 09/24/20 .COMPLEX #6 tab prednisone 10 mg PO DAILY #18 tab 09/24/20 Previous Rx's Medication Instructions Recorded albuterol sulfate [ProAir HFA] 2 puff INHALATION Q4H PRN #1 inh 07/17/15 methocarbamol 500 mg PO Q6H PRN #14 tab 01/25/20 azithromycin See Rx Instructions .ROUTE 09/24/20 .COMPLEX #6 tab prednisone 10 mg PO DAILY #18 tab 09/24/20 Allergies Allergy/AdvReac Type Severity Reaction Status Date / Time meperidine HCl [From Demerol] AdvReac Intermediate agitated Unverified 01/25/20 12:33 and ugly tetracycline AdvReac Intermediate upsets Unverified 01/25/20 12:33 stomach amitriptyline AdvReac Mild adverse Unverified 01/25/20 12:33 effect lisinopril AdvReac Mild cough Unverified 01/25/20 12:33 General Stated Complaint: SOB IGGY: 2 Review of Systems Narrative: 6 systems reviewed and otherwise negative. No chest pain, no syncope, recently has been well. Notes sore throat, cough, congestion with production of yellow sputum. 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 Hiatal hernia Hx of bronchiectasis Hypertension Surgical History (Updated 11/23/19 @ 07:57 by Holger Marquez MD) Abdominal hysterectomy (~1985) LINDA/BSO Appendectomy (~1968) CYSTECTOMY (~01/2004) L BR CYST REMOVED Endoscopy (12/22/04) History of cataract surgery LATERAL EPICONDYLE SURGERY (04/30/03) Open Carpal Tunnel release (~12/1999) LEFT RIGHT ANKLE AND KNEE SURGERY (10/16/95) Rotator Cuff Repair (09/22/07) RIGHT TKA (03/27/10) RIGHT Family History Mother COPD (chronic obstructive pulmonary disease) MS (multiple sclerosis) Father Essential hypertension CAD (coronary artery disease) Alzheimer disease Grandfather Diabetes Personal history of malignant neoplasm PROSTATE Mental disorder DEMENTIA Grandfather Essential hypertension Heart disease Grandmother Essential hypertension Stroke Grandmother Essential hypertension Alzheimer disease Social History (Reviewed 06/21/19 @ 21:19 by JOSE DANIEL Miranda Smoking/Tobacco Use Status: Former Tobacco Use Quit Date: 04/18/01 Smoking risk assessment performed?: Yes Alcohol Intake: current Alcohol Intake frequency: holidays/special occasions only Alcohol type: beer Drug use: Never Substance use type: does not use Do you feel safe at home: Yes Do you feel safe in your relationship?: Yes Exam Narrative Exam Narrative: GEN: awake, alert, oriented 3. Pleasant, well groomed, interactive. HEAD: Normocephalic, atraumatic ENT: Mucous membranes moist, oropharynx unremarkable, External ear exam unremarkable EYES: PERRL, EOMI NECK: Full ROM, no CATRACHITA, no menigismus CHEST/RESP: cough noted, bilateral end expiratory wheeze. CARDIOVASCULAR: RRR, no murmur, rub shin. 2+ Rad pulse bilateral ABDOMEN: Soft, nontender, no mass. +Bowel sounds EXT: Full ROM, no edema, no rash Neuro: Grossly normal neurologic exam, conversant, interactive. Psych: Speech fluent, thoughts congruent, affect normal Course Vital Signs Vital signs: Vital Signs Temperature 36.6 C 09/24/20 12:13 Pulse 102 H 09/24/20 12:13 Respiratory Rate 25 H 09/24/20 12:13 Blood Pressure 133/77 09/24/20 12:13 Pulse Oximetry 95 09/24/20 12:13 Temperature 36.6 C 09/24/20 12:13 Temperature Source Skin 09/24/20 12:13 Pulse 102 H 09/24/20 12:13 Respiratory Rate 25 H 09/24/20 12:13 Blood Pressure 133/77 09/24/20 12:13 Blood Pressure Position Supine 09/24/20 12:13 Pulse Oximetry 95 09/24/20 12:13 Oxygen Delivery Method Nasal Cannula 09/24/20 12:13 Oxygen Flow Rate 2 09/24/20 12:13 Pain Level 0 09/24/20 12:13 Comment 09/24/20 12:13
[2020-09-24 12:42] LABS: Abs Immature Grans 0.05 10^3/uL (0.0-0.06); Absolute Basophil Count 0.05 10^3/uL (0.0-0.2); Absolute Eosinophil Count 0.09 10^3/uL (0.0-0.7); Absolute Lymphocyte Count 0.97 10^3/uL (1.2-3.4); Absolute Monocyte Count 1.74 10^3/uL (0.1-0.8); Absolute Neutrophil Count 5.72 10^3/uL (1.2-6.7); Basophils % 0.6; HCT 46.9 % (36.0-46.0); HGB 15.5 g/dL (11.2-15.7); Immature Grans % 0.6; Lymphocytes % 11.3; MCH 31.2 pg (27.0-33.0); MCV 94.4 fL (80-95); Monocytes % 20.2; Neutrophils % 66.3; Nucleated RBC 0 %; Platelet Count 347 10^3/uL (130-400); RBC 4.97 10^6/uL (3.93-5.22); RDW 12.6 % (11.7-14.6); RDW-SD 43.6 fL; WBC 8.62 10^3/uL (4.4-10.8)
[2020-09-24] MEDS: Albuterol/Ipratropium 3 ML UPD VIAL UPD ×2 (12:59→14:07)
[2020-09-24] MEDS: Normal Saline 500 ML IV (12:59)
[2020-09-24] MEDS: methylPREDNISolone SUCC 125 MG VIAL IVP (12:59)
[2020-09-24 13:06] LABS: Diff Comment Diff Reviewed
[2020-09-24 13:07] LABS: RBC Morphology Normal
[2020-09-24 13:09] LABS: ALT 33 U/L (14-59); AST 22 U/L (15-37); Albumin 3.2 g/dL (3.4-5.0); Alkaline Phosphatase 113 U/L (46-116); Anion Gap 7.4 mmol/L (3-11); BUN 12 mg/dL (7-18); Bilirubin, Total 0.5 mg/dL (0.2-1.0); CO2 28.6 mmol/L (21.0-32.0); Calcium 9.2 mg/dL (8.5-10.1); Chloride 103 mmol/L (98-107); Glucose 159 mg/dL (74-106); Potassium 3.8 mmol/L (3.5-5.1); Sodium 139 mmol/L (136-145); Total Protein 8.2 g/dL (6.4-8.2)
[2020-09-24 13:10] LABS: Troponin I < 0.05 ng/mL (<0.06)
== END 2020-09-24 15:35 | disposition home or self-care (01) ==
PROVIDERS: Emergency Provider Emergency Medicine; PCP Family Medicine
DX: J44.1 Chronic obstructive pulmonary disease with (acute) exacerbation (principal)
CPT/HCPCS: 80053; 93005; 94640; 96361; 96374; 99284; 71046; 83735; 84484; 85025; 93010; 99283; J2930; J7620

== ENCOUNTER 2020-10-10 04:38 | Outpatient (RCR) | payer MEDICARE, SELFPAY ==
[2020-09-18] MEDS: Normal Saline Flush 10 ML SYR IVP (11:47)
[2020-09-18] MEDS: Proteinase Inhibitor 5 VIAL in EMPTY EVACUATED CONTAINER 1 EACH 100 VIAL IVPB (11:47)
[2020-10-10] MEDS: Normal Saline Flush 10 ML SYR IVP (13:16)
[2020-10-10] MEDS: Proteinase Inhibitor 5 VIAL in EMPTY EVACUATED CONTAINER 1 EACH 100 VIAL IVPB (13:51)
== END 2020-10-15 23:59 | disposition home or self-care (01) ==
LOC: INF 04:38
PROVIDERS: PCP Family Medicine; Visit Provider Internal Medicine
DX: E88.01 Alpha-1-antitrypsin deficiency (principal)
CPT/HCPCS: 96374; J0257

== ENCOUNTER 2020-11-13 03:50 | Outpatient (RCR) | payer MEDICARE, SELFPAY ==
[2020-10-16] MEDS: Proteinase Inhibitor 5 VIAL in EMPTY EVACUATED CONTAINER 1 EACH 100 VIAL IVPB (11:37)
[2020-10-16] MEDS: Normal Saline Flush 10 ML SYR IVP (11:37)
[2020-10-24] MEDS: Proteinase Inhibitor 5 VIAL in EMPTY EVACUATED CONTAINER 1 EACH 100 VIAL IVPB (11:48)
[2020-10-24] MEDS: Normal Saline Flush 10 ML SYR IVP (11:48)
[2020-10-30] MEDS: Proteinase Inhibitor 5 VIAL in EMPTY EVACUATED CONTAINER 1 EACH 100 VIAL IVPB (11:52)
[2020-10-30] MEDS: Normal Saline Flush 10 ML SYR IVP (11:52)
[2020-11-06] MEDS: Normal Saline Flush 10 ML SYR IVP (11:14)
[2020-11-06] MEDS: Proteinase Inhibitor 5 VIAL in EMPTY EVACUATED CONTAINER 1 EACH 100 VIAL IVPB (11:42)
[2020-11-13] MEDS: Normal Saline Flush 10 ML SYR IVP (11:33)
[2020-11-13] MEDS: Proteinase Inhibitor 5 VIAL in EMPTY EVACUATED CONTAINER 1 EACH 100 VIAL IVPB (12:01)
== END 2020-11-15 23:59 | disposition home or self-care (01) ==
LOC: INF 03:50
PROVIDERS: PCP Family Medicine; Visit Provider Internal Medicine
DX: E88.01 Alpha-1-antitrypsin deficiency (principal)
CPT/HCPCS: 96374; J0257

== ENCOUNTER 2020-12-11 02:32 | Outpatient (RCR) | payer MEDICARE, SELFPAY ==
[2020-11-20] MEDS: Normal Saline Flush 10 ML SYR IVP (12:00)
[2020-11-20] MEDS: Proteinase Inhibitor 5 VIAL in EMPTY EVACUATED CONTAINER 1 EACH 100 VIAL IVPB (12:00)
[2020-11-27] MEDS: Proteinase Inhibitor 5 VIAL in EMPTY EVACUATED CONTAINER 1 EACH 100 VIAL IVPB (11:47)
[2020-12-04] MEDS: Proteinase Inhibitor 5 VIAL in EMPTY EVACUATED CONTAINER 1 EACH 100 VIAL IVPB (12:05)
[2020-12-04] MEDS: Normal Saline Flush 10 ML SYR IVP (12:06)
[2020-12-11] MEDS: Normal Saline Flush 10 ML SYR IVP (11:20)
[2020-12-11] MEDS: Proteinase Inhibitor 5 VIAL in EMPTY EVACUATED CONTAINER 1 EACH 200 VIAL IVPB (11:32)
== END 2020-12-16 23:59 | disposition home or self-care (01) ==
LOC: INF 02:32
PROVIDERS: PCP Family Medicine; Visit Provider Internal Medicine
DX: E88.01 Alpha-1-antitrypsin deficiency (principal)
CPT/HCPCS: 96365; 96374; J0257

== ENCOUNTER 2020-12-24 15:13 | Outpatient (REF) | payer MEDICARE, SELFPAY ==
[2020-12-25 20:11] LABS: Rheumatoid Factor <8.6 IU/mL (<12.0)
[2020-12-26 08:56] LABS: Cyclic Citrullinated Peptide <2.5 U/mL (<5.0)
[2020-12-26 09:00] LABS: IgE <2 IU/mL (<158)
[2020-12-26 09:47] LABS: IgA 620 mg/dL (85-499); IgG 1604 mg/dL (610-1,616); IgM 47 mg/dL (35-242)
[2020-12-26 13:39] LABS: ANA Interpretation Positive (Negative); ANA Titer Pattern 1:160 Homogeneous
[2020-12-30 11:43] LABS: dsDNA Ab, IgG <12.3 IU/mL (<30.0)
== END 2020-12-24 15:14 | disposition home or self-care (01) ==
LOC: LBN 15:13
PROVIDERS: PCP Family Medicine; Visit Provider Student in an Organized Health Care Education/Training Program
DX: J84.10 Pulmonary fibrosis, unspecified (principal); J47.9 Bronchiectasis, uncomplicated
CPT/HCPCS: 82784; 86200; 82785; 86038; 86225; 86431

== ENCOUNTER 2020-12-30 02:16 | Outpatient (CLI) | payer MEDICARE, SELFPAY ==
--- NOTE | 2020-12-30 | DI.MAMMO_ITS ---
Exam(s) MAMMO SCREENING EXAM: MAMMO SCREENING CLINICAL HISTORY: SCREENING, Z12.31 TECHNIQUE: Mammograms were interpreted according to the usual protocol including computer analysis w [employer] CAD system, tomosynthesis and C-view imaging. COMPARISON: 2011 through 2018 FINDINGS: The breasts are composed of scattered fibroglandular densities, Breast Density category B. No suspicious masses or suspicious microcalcifications are seen. No skin thickening or abnormal axillary lymph nodes are seen. There has been no significant change from prior exams. IMPRESSION: BI-RADS Category 1, Negative mammogram Yearly screening mammography is recommended. Breast Density - Category B, scattered fibroglandular densities. A negative radiographic report should not delay biopsy if a dominant or clinically suspicious mass is present. Up to ten percent of cancers are not identified on mammography. A negative report may reinforce clinical impression. Adenosis and dense breasts may obscure an underlying neoplasm. False positive reports average 6 to 10%. Patient will receive a letter notifying them of these results.
== END 2020-12-30 02:36 ==
PROVIDERS: PCP Family Medicine; Visit Provider Family Medicine
DX: Z12.31 Encounter for screening mammogram for malignant neoplasm of breast (principal)
CPT/HCPCS: 77063; 77067

== ENCOUNTER 2021-01-06 00:22 | Outpatient (CLI) | payer MEDICARE, SELFPAY ==
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
--- NOTE | 2021-01-06 07:30 | DI.CT_ITS ---
Exam(s) CT CHEST WO EXAM: CT CHEST WO CLINICAL HISTORY: Assess for fibrosis progression, worsening dyspnea,BRONCHIECTASIS,ANTRITRYP. TECHNIQUE: Imaging protocol: Axial computed tomography images were obtained and coronal and sagittal reformatted images were created and reviewed. COMPARISON: CT CHEST WITHOUT CONTRAST from 07/16/2015 FINDINGS: Tracheobronchial tree: Patent where visualized. Pulmonary parenchyma: No consolidation or dominant measurable mass. Stable mild centrilobular pulmona ry emphysema. Stable nodular scarring in the lateral aspect of the left upper lobe. Stable pulmonar y fibrotic changes and bronchiectasis in the lung bases. Mediastinum and [place]: No dominant adenopathy or fluid collection. There is a 4 cm transverse by 4.1 c m AP x 4.0 cm craniocaudad soft tissue mass in the superior mediastinum to the right of the esophagus and posterior to the trachea. There does appear to be a focus of air within this mass. Previously this corresponded to an air-filled cavity. Pleura: No effusion or pneumothorax. Heart: The heart is not dilated. Mild coronary artery calcification. No pericardial effusion. Aorta: Thoracic aorta non-dilated. Atherosclerosis. Upper abdomen: Unremarkable. Lymph nodes: Within normal limits. Soft tissues: Unremarkable. Bones:Within normal limits for the patient's age. IMPRESSION: 1. Stable pulmonary emphysema, pulmonary fibrosis and bronchiectasis. 2. 4.1 cm soft tissue mass in the superior mediastinum to the right of the esophagus and posterior to the trachea. Previously an air-filled cavity was seen in this area. This may represent a diverticu lum arising from the trachea or the esophagus, a neoplasm, duplication cyst. A postcontrast CT or MR I may be considered for further evaluation. In addition endoscopy/bronchoscopy or barium swallow may provide additional information. RADIATION DOSE DELIVERED: 90.32mGy.cm Total DLP 90.32mGy.cm Total DLP DATA REPOSITORY: All CT scans at this facility are submitted to the National Radiology Data Registry (NRDR) Dose Index Registry (DIR) with the [employer] (ACR). RADIATION OPTIMIZATION: All CT scans at this facility use at least one of these dose optimization te chniques: automated exposure control; mA and/or kV adjustment per patient size (includes targeted exa ms where dose is matched to clinical indication); or iterative reconstruction.
== END 2021-01-06 00:42 ==
PROVIDERS: PCP Family Medicine; Visit Provider Student in an Organized Health Care Education/Training Program
DX: E88.01 Alpha-1-antitrypsin deficiency (principal); J47.9 Bronchiectasis, uncomplicated; J84.10 Pulmonary fibrosis, unspecified; R19.09 Other intra-abdominal and pelvic swelling, mass and lump
CPT/HCPCS: 71250

== ENCOUNTER 2021-01-15 03:10 | Outpatient (RCR) | payer MEDICARE, SELFPAY ==
[2020-12-18] MEDS: Normal Saline Flush 10 ML SYR IVP (11:23)
[2020-12-18] MEDS: Proteinase Inhibitor 5 VIAL in EMPTY EVACUATED CONTAINER 1 EACH 100 VIAL IVPB (11:54)
[2020-12-25] MEDS: Normal Saline Flush 10 ML SYR IVP (11:41)
[2020-12-25] MEDS: Proteinase Inhibitor 5 VIAL in EMPTY EVACUATED CONTAINER 1 EACH 100 VIAL IVPB (11:41)
[2021-01-01] MEDS: Normal Saline Flush 10 ML SYR IVP (11:22)
[2021-01-01] MEDS: Proteinase Inhibitor 5 VIAL in EMPTY EVACUATED CONTAINER 1 EACH 100 VIAL IVPB (11:47)
[2021-01-09] MEDS: Normal Saline Flush 10 ML SYR IVP (11:30)
[2021-01-09] MEDS: Proteinase Inhibitor 5 VIAL in EMPTY EVACUATED CONTAINER 1 EACH 100 VIAL IVPB (12:23)
[2021-01-15] MEDS: Normal Saline Flush 10 ML SYR IVP ×2 (11:39→11:50)
[2021-01-15] MEDS: Proteinase Inhibitor 5 VIAL in EMPTY EVACUATED CONTAINER 1 EACH 100 VIAL IVPB (11:50)
== END 2021-01-15 23:59 | disposition home or self-care (01) ==
LOC: INF 03:10
PROVIDERS: PCP Family Medicine; Visit Provider Internal Medicine
DX: E88.01 Alpha-1-antitrypsin deficiency (principal)
CPT/HCPCS: 36591; 96365; 96374; 96375; J0257

== ENCOUNTER 2021-01-19 03:10 | Outpatient (CLI) | payer MEDICARE, SELFPAY ==
[2021-01-19 12:41] LABS: Source Nasal/Nares
[2021-01-19 18:58] LABS: COVID-19 PCR Negative (Negative)
== END 2021-01-19 03:11 | disposition home or self-care (01) ==
LOC: LBO 03:10
PROVIDERS: PCP Family Medicine; Visit Provider Student in an Organized Health Care Education/Training Program
DX: Z20.822 Contact with and (suspected) exposure to COVID-19 (principal); Z01.818 Encounter for other preprocedural examination; J47.9 Bronchiectasis, uncomplicated
CPT/HCPCS: 87635

== ENCOUNTER 2021-01-20 07:24 | Day surgery (SDC) | payer MEDICARE, SELFPAY ==
[2021-01-20 07:30] VITALS: BP 169/84; PULSE 78; RESP 18; TEMP 36.7; O2SAT 97
[2021-01-20] MEDS: Lactated Ringers 1,000 ML 30 ML IV (08:07)
--- NOTE | 2021-01-20 08:23 | W.ANESPRE ---
General Info Date of Service Date Performed: 01/20/21 Height: 5 ft 4.17 in Weight: 96.5 kg Body Mass Index (BMI): 36.3 Surgical Procedure: Operation Date: 01/20/21 09:10 Proposed Procedures Side Surgeon p Bronchoscopy with bronchial washings Elizabeth Barrientos MD Meds Allergies and Home Medications Allergies Allergy/AdvReac Type Severity Reaction Status Date / Time meperidine HCl [From Demerol] AdvReac Intermediate agitated Unverified 01/20/21 07:38 and ugly tetracycline AdvReac Intermediate upsets Unverified 01/20/21 07:38 stomach amitriptyline AdvReac Mild adverse Unverified 01/20/21 07:38 effect lisinopril AdvReac Mild cough Unverified 01/20/21 07:38 Home Medication Medication Instructions Recorded cholecalciferol (vitamin D3) 4,000 unit PO DAILY 06/27/14 Iodizyme 6.25 mg PO DAILY 07/24/14 hydrochlorothiazide 25 mg PO DAILY #30 tab-cap 12/19/14 levothyroxine 75 mcg PO DAILY #30 tab-cap 12/19/14 losartan 50 mg PO DAILY #30 tab-cap 12/19/14 metformin 1,000 mg tablet 1,000 mg PO BID 07/10/19 Trelegy Ellipta 1 inh INHALATION QAM 11/07/19 glipizide 10 mg PO DAILY 01/25/20 magnesium 500 mg PO DAILY 01/25/20 vitamin Q46-rzhlg acid 1 tab SUBLINGUAL DAILY 01/25/20 alpha-1 proteinase inhib.(hum) See Rx Instructions IV .COMPLEX 11/14/20 1,000 mg (+/-)/20 mL IV solution potassium 99 mg tablet See Rx Instructions .ROUTE 11/14/20 DIRECTED tab albuterol sulfate 90 mcg/actuation See Rx Instructions INHALATION 12/24/20 aerosol inhaler DIRECTED g alpha lipoic acid 200 mg PO BID 01/16/21 horse chestnut 400 mg PO DAILY 01/16/21 inositol 500 mg PO DAILY 01/16/21 Current Visit Medications: Current Medications Generic Name Dose Route Start Last Admin Trade Name Freq PRN Reason Stop Dose Admin Ringer's Solution 1,000 mls @ 30 mls/hr 01/20/21 06:00 01/20/21 08:07 IV 02/18/21 23:59 30 mls/hr INFUSION SHEN Administration IV Miscellaneous Supplies 1 each 01/20/21 06:00 Iv Access IV 02/18/21 23:59 DIRECTED SHEN Sodium Chloride 0 ml 01/20/21 06:00 Normal Saline Flush 10 Ml Syr IV 02/18/21 23:59 PRN PRN Sodium Chloride 0 ml 01/20/21 06:00 Normal Saline 10 Ml Vial IJ 02/18/21 23:59 DIRECTED PRN Sterile Water 0 ml 01/20/21 06:00 Water,Injection,Sterile 10 Ml Vial IJ 02/18/21 23:59 DIRECTED PRN PFSH Active Problems Active Problems: Problem Status Onset Code Tendonitis of upper biceps tendon of left shoulder 06/20/19 M75.22 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 Cortical cataract of right eye H26.9 Nuclear sclerotic cataract of right eye H25.11 History of cataract surgery Z98.49 Cortical cataract of left eye H26.9 Nuclear sclerotic cataract of left eye H25.12 COPD (chronic obstructive pulmonary disease) J44.9 Chronic respiratory failure with hypoxia J96.11 Bronchiectasis J47.9 Pulmonary fibrosis J84.10 COPD with acute exacerbation J44.1 Medical History Medical History COPD (chronic obstructive pulmonary disease) COPD with acute exacerbation Diabetes 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-mbcltuqdayy deficiency Hiatal hernia History of injury of neck per patient C6-C7 compression Hx of bronchiectasis Hypertension Hypothyroid Polyalgia Vitamin D deficiency Surgical History Surgical History Abdominal hysterectomy (~1985) LINDA/BSO Appendectomy (~1968) CYSTECTOMY (~01/2004) L BR CYST REMOVED Endoscopy (12/22/04) History of cataract surgery LATERAL EPICONDYLE SURGERY (04/30/03) Open Carpal Tunnel release (~12/1999) LEFT RIGHT ANKLE AND KNEE SURGERY (10/16/95) Rotator Cuff Repair (09/22/07) RIGHT TKA (03/27/10) RIGHT Tobacco Smoking/Tobacco Use Status: Former Tobacco Use Tobacco: How many years used: 30 Alcohol Alcohol Intake: current Alcohol intake frequency: holidays/special occasions only Alcohol type: beer Substance Use Substance use: Never Substance use type: does not use Vital Signs and Lab Results Vital Signs Most Recent Vital Signs in EMR: Most Recent Vital Signs Temp Pulse Resp BP Pulse Ox 36.7 C 78 18 169/84 H 97 01/20/21 07:30 01/20/21 07:30 01/20/21 07:30 01/20/21 07:30 01/20/21 07:30 Point of Care Results Point of Care Results: Finger Stick Blood Glucose 171 01/20/21 08:10 Lab Results Blood Type / Crossmatch: No Data to Display Complete Blood Count: No Data to Display Complete Metabolic Panel: No Data to Display Liver Function Panel: No Data to Display Coagulation Panel: No Data to Display Cardiac Panel: No Data to Display Arterial Blood Gas: No Data to Display Venous Blood Gas: No Data to Display Pancreas Panel: No Data to Display Thyroid Panel: No Data to Display Infectious Disease: Coronavirus (COVID-19)(PCR) Negative (Negative) 01/19/21 10:49 01/19/21 Coronavirus 2019 Source Nasal/Nares 01/19/21 10:49 01/19/21 Blood Cultures: No Data to Display Toxicology Panel: No Data to Display Imaging and Studies Imaging and Studies EKG Summary: DATE/TIME OF SERVICE: 09/24/20 1222 Conclusion Sinus rhythm...normal P axis, V-rate 60- 99 Echocardiogram Summary: Date of study: 12/02/2015 *STUDY CONCLUSIONS* Summary: 1. Left ventricle: The cavity size was normal. There was mild focal basal hypertrophy of the septum. Systolic function was normal. The estimated ejection fraction was 55-60%. Wall motion was normal; there were no regional wall motion abnormalities. 2. Right ventricle: The cavity size was normal. Systolic function was normal. 3. Pulmonary arteries: Systolic pressure could not be accurately estimated. Pulmonary Function Summary: Date FEV1/FVCLLNFEV1%JWS3HUFGGW%FVCLLNComments 01[birth year]17/1963 1.3958 2.2270 07/23/2170 1.4461 2.0365 No BD Other Study Summary:: 01/06/21: CT IMPRESSION: 1. Stable pulmonary emphysema, pulmonary fibrosis and bronchiectasis. 2. 4.1 cm soft tissue mass in the superior mediastinum to the right of the esophagus and posterior to the trachea. Previously an air-filled cavity was seen in this area. This may represent a diverticulum arising from the trachea or the esophagus, a neoplasm, duplication cyst. A postcontrast CT or MRI may be considered for further evaluation. In addition endoscopy/bronchoscopy or barium swallow may provide additional information. Anesthesia Assessment and Plan Anesthesia History Personal History: No History of Anesthesia Complications Family History: No Family History of Anesthesia Complications Exercise Tolerance Exercise Tolerance: Metabolic Equivalents<4 Pertinent Negatives Pertinent Negatives: No Symptoms of GERD and No Major Cardiovascular Symptoms or Complaints Cardiac & Pulmonary Exam Cardiac Exam: Normal S1/S2 Heart Sounds Pulmonary Exam: Clear Bilateral Breath Sounds and Active Dry Cough (After meds in mornin, may have mild yellow productie cough) Airway Exam Known Difficult Airway: No Mallampati Class: 2 Mouth Opening: Normal (> 3cm) Thyromental Distance: Greater than 3 cm Neck Range of Motion: Full ROM Neck Circumference: Normal Teeth Condition: Removable Dentures/Plates Upper ASA Classification ASA Score: ASA 4 Emergency Case?: No NPO Status NPO Status: NPO Clears >2 hours, Solids >8 hours Anesthesia Plan Resuscitation Status: Full Code Anesthesia Technique: MAC Anesthesia Airway Planned: Natural Airway Monitors Used: Standard Monitors
[2021-01-20 08:42] VITALS: BMI 36.3
--- NOTE | 2021-01-20 08:44 | HPE_ITS ---
Date of service: 01/20/21 Time of Service: 08:44 Assessment and Plan Assessment and plan (1) Chest mass: Status: Acute Assessment and plan: Planned for flexible bronchoscopy today. No change to planned procedure. 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 She had an air filled cystic lesion seen on CT in 2016, EGD done and ruled out duplication cyst. Repeat imaging shows this cystic space is filled with soft tissue and fluid. There is still some air which prompts concern for a tracheal communication. We are performing an airway inspection to assess whether there is a tracheal connection today with the possibility for bronchial washings. Patient understands and agreeable to planned procedure. Pertinent Surgical Information Previous colonoscopy without adverse event. Prior right pneumothorax. Review of Systems All systems reviewed & are unremarkable except as noted in HPI and below PFSH Medical History (Updated 01/20/21 @ 08:47 by Elizabeth Barrientos MD) COPD (chronic obstructive pulmonary disease) COPD with acute exacerbation Diabetes Emphysema due to rcrzz-7-ikhcgseucwg deficiency Hiatal hernia History of injury of neck per patient C6-C7 compression Hx of bronchiectasis Hypertension Hypothyroid Polyalgia Vitamin D deficiency Surgical History Abdominal hysterectomy (~1985) LINDA/BSO Appendectomy (~1968) CYSTECTOMY (~01/2004) L BR CYST REMOVED Endoscopy (12/22/04) History of cataract surgery LATERAL EPICONDYLE SURGERY (04/30/03) Open Carpal Tunnel release (~12/1999) LEFT RIGHT ANKLE AND KNEE SURGERY (10/16/95) Rotator Cuff Repair (09/22/07) RIGHT TKA (03/27/10) RIGHT Family History Mother COPD (chronic obstructive pulmonary disease) Multiple sclerosis Father Essential hypertension CAD (coronary artery disease) Alzheimer disease Grandfather Diabetes Personal history of malignant neoplasm PROSTATE Mental disorder DEMENTIA Grandfather Essential hypertension Heart disease Grandmother Essential hypertension Stroke Multiple sclerosis Emphysema lung Social History Smoking/Tobacco Use Status: Former Tobacco Use tobacco type: cigarettes Quit Date: 04/18/01 Tobacco: How many years used: 30 Smoking risk assessment performed?: Yes Alcohol Intake: current Alcohol Intake frequency: holidays/special occasions only Alcohol type: beer Drug use: Never Substance use type: does not use Do you feel safe at home: Yes Do you feel safe in your relationship?: Yes Meds Allergies and Home Medications Allergies Allergy/AdvReac Type Severity Reaction Status Date / Time meperidine HCl [From Demerol] AdvReac Intermediate agitated Unverified 01/20/21 07:38 and ugly tetracycline AdvReac Intermediate upsets Unverified 01/20/21 07:38 stomach amitriptyline AdvReac Mild adverse Unverified 01/20/21 07:38 effect lisinopril AdvReac Mild cough Unverified 01/20/21 07:38 Home Medications Medication Instructions Recorded Confirmed Type cholecalciferol (vitamin D3) 4,000 unit PO DAILY 06/27/14 01/20/21 History Iodizyme 6.25 mg PO DAILY 07/24/14 01/20/21 History hydrochlorothiazide 25 mg PO DAILY #30 tab-cap 12/19/14 01/20/21 History levothyroxine 75 mcg PO DAILY #30 tab-cap 12/19/14 01/20/21 History losartan 50 mg PO DAILY #30 tab-cap 12/19/14 01/20/21 History metformin 1,000 mg tablet 1,000 mg PO BID 07/10/19 01/20/21 History Trelegy Ellipta 1 inh INHALATION QAM 11/07/19 01/20/21 History glipizide 10 mg PO DAILY 01/25/20 01/20/21 History magnesium 500 mg PO DAILY 01/25/20 01/20/21 History vitamin O88-qrefw acid 1 tab SUBLINGUAL DAILY 01/25/20 01/20/21 History alpha-1 proteinase inhib.(hum) See Rx Instructions IV .COMPLEX 11/14/20 01/20/21 History 1,000 mg (+/-)/20 mL IV solution potassium 99 mg tablet See Rx Instructions .ROUTE 11/14/20 01/20/21 History DIRECTED tab albuterol sulfate 90 mcg/actuation See Rx Instructions INHALATION 12/24/20 01/20/21 History aerosol inhaler DIRECTED g alpha lipoic acid 200 mg PO BID 01/16/21 01/20/21 History horse chestnut 400 mg PO DAILY 01/16/21 01/20/21 History inositol 500 mg PO DAILY 01/16/21 01/20/21 History Exam Const General: no acute distress Nutritional Appearance: well nourished [facility] Head: normocephalic Ears: external ears normal and no periauricular adenopathy General nose exam: nasal mucous membranes and turbinates normal Face and sinus: sinuses nontender Mouth: oropharynx normal and moist mucous membranes Teeth and gingiva: dentition normal Eyes General: appearance normal, both eyes and all related structures Pupils: PERRL Neck Neck: normal visual inspection and no lymphadenopathy Chest Chest: normal inspection of the chest Resp Effort & Inspection: normal respiratory effort Auscultation: clear to auscultation bilaterally, no rales, no rhonchi and no wheezes Cardio Rate: regular rate Rhythm: regular rhythm Heart Sounds: S1 normal, S2 normal and no murmurs Pulses: radial pulses present bilaterally GI Inspection: normal to inspection Palpation: soft Skin General skin exam: no rashes or lesions noted Neuro General: patient alert, patient awake and patient oriented x3 Extrem General: no clubbing, cyanosis or edema Psych Mental Status: mental status grossly normal Affect: normal affect Attitude: cooperative Results Last Vital Signs Temp 36.7 C 01/20/21 07:30 Pulse 78 01/20/21 07:30 Resp 18 01/20/21 07:30 BP 169/84 H 01/20/21 07:30 Pulse Ox 97 01/20/21 07:30
[2021-01-20] MEDS: Lidocaine 1% Multi-Dose 50 ML VIAL (09:46)
[2021-01-20] MEDS: Lidocaine 2% Multi-Dose 50 ML VIAL (09:47)
[2021-01-20 09:55] VITALS: BP 153/96; PULSE 90; RESP 18; TEMP 36.6; O2SAT 98
[2021-01-20 10:22] VITALS: BP 108/70; PULSE 84; RESP 18; TEMP 36.6; O2SAT 97
--- NOTE | 2021-01-20 10:43 | W.PM.OP ---
Date of service: 01/20/21 Time of Service: 10:00 Operative Note Operative Note Bronchoscopy Date:01/20/21 Time:0900 Indication:chest mass Procedure performed: Flexible bronchoscopy Sedation plan: Conscious sedation Medications used: Versed, fentanyl, ketamine - anesthesia case, please see separate report Informed consent was obtained after the risks and benefits or the procedure were discussed. The patient?s nasal passage was numbed with 4% atomized lidocaine (2cc per nostril) and 2% viscous topical lidocaine using cotton swabs. A proper and complete OR compliant time out was performed. The therapeutic 6.2mm Olympus bronchoscope was inserted through the left nares and the vocal cords were visualized. The vocal cords were normal in appearance and normal function.2cc of 2% topical lidocaine was used to anesthetize the vocal cords. The bronchoscope was inserted into the airways, were 2cc in total of 1% topical lidocaine was used the anesthetize the airways. The trachea was midline. There was an endobronchial mass seen in the upper 1/3 of the trachea that did have vascularization present. There were no other masses seen. There was also tracheobronchomalacia present with a moderate amount of white to yellow thick secretions throughout the airway. The junie was sharp. All bronchial subsegments were visualized. The bronchoscope was then removed and the case terminated. The patient was taken to PACU in stable condition. Samples collected:bronchial washings Testing ordered:bacterial gram stain and culture Complications: Mild nose bleed, self-limiting Elizabeth Barrientos MD Pulmonary & Critical Care Medicine
[2021-01-20 10:55] VITALS: BP 134/76; PULSE 84; RESP 18; TEMP 36.4; O2SAT 97
--- NOTE | 2021-01-20 11:35 | W.ANESPOSTOP ---
Postoperative Evaluation Date, Time and Location Date Performed: 01/20/21 Time Performed: 10:25 Patient Location: Day Surgery Unit Vital Signs Most Recent Imported Vital Signs: Most Recent Vital Signs Temp Pulse Resp BP Pulse Ox 36.6 C 84 18 108/70 97 01/20/21 10:22 01/20/21 10:22 01/20/21 10:22 01/20/21 10:22 01/20/21 10:22 Pain Score Most Recent Pain Score: Most Recent Pain Score Pain Level 0 01/20/21 10:22 Assessment Mental Status: Awake (Alert & Oriented to Patient Baseline) Airway and Respiratory Function: Patent airway with normal (patient baseline) respiratory exam Cardiovascular Function: Hemodynamically Stable Hydration Status: Adequately Hydrated Nausea & Vomiting: No Nausea or Vomiting Pain: Pt. Denies Any Pain Peripheral Nerve Block: Patient did not receive a nerve block
== END 2021-01-20 11:45 | disposition home or self-care (01) ==
PROVIDERS: PCP Family Medicine; Visit Provider Student in an Organized Health Care Education/Training Program
PROC: 0BJ08ZZ Inspection of Tracheobronchial Tree, Via Natural or Artificial Opening Endoscopic (ICD-10-PCS; CPT 31622; principal; 2021-01-20 09:00)
DX: J39.8 Other specified diseases of upper respiratory tract (principal); J98.09 Other diseases of bronchus, not elsewhere classified
CPT/HCPCS: 31622; 87070; 87205; J0360; J2001; J2250; J2405; J3010

== ENCOUNTER 2021-02-02 02:04 | Outpatient (CLI) | payer MEDICARE, SELFPAY ==
--- NOTE | 2021-02-02 | DI.RAD_ITS ---
Exam(s) RF BARIUM SWALLOW EXAM: RF BARIUM SWALLOW CLINICAL HISTORY: TRACHEAL CYST,Q34.9 TECHNIQUE: 2D and realtime digital imaging was performed. CONTRAST MATERIAL: Barium, both single and air contrast. COMPARISON: CT CT CHEST WO from 01/06/[address] CHEST WO from 01/06/2021 FINDINGS: This study was performed both standing and recumbent (MARTÍNEZ) positions. Swallowing mechanism appears grossly intact there was no evidence of aspiration. No hypertense upper esophageal sphincter and no Zenker's diverticulum noted. The soft is is somewhat deviated towards the left side at the T2 level, this most probably related to the mass seen at this level in the posterio r mediastinum on the recent CT scan. There is no extravasation of barium from the esophagus lumen at this level to suggest fistulous communication. There are no fixed lesions seen in the esophagus. GE junction appears unremarkable no stricture at th is level. A mild Schatzki ring was demonstrated in the MARTÍNEZ position, but this was transient. No GE re flux demonstrated. IMPRESSION: No intrinsic findings in the esophagus but the esophagus lumen appears deviated towards the left side at the T2 level, this related to the retro trachea mass seen at this location on the recent CT scan. There does not appear to be communication between the esophagus and this finding on this study. RADIATION DOSE DELIVERED: judson Campoverde=84.1 mGy
[2021-02-02] MEDS: Barium Sulfate 60% W/V 355 ML BTL PO (09:58)
[2021-02-02] MEDS: Simethicone/Sod Bicarb/Cit Ac, 4 gram PACKET 1 PACKET PO (10:00)
== END 2021-02-02 02:24 ==
PROVIDERS: PCP Family Medicine; Visit Provider Internal Medicine
DX: Q34.8 Other specified congenital malformations of respiratory system (principal)
CPT/HCPCS: 74221; J3490

== ENCOUNTER 2021-02-12 01:42 | Outpatient (RCR) | payer MEDICARE, SELFPAY ==
[2021-01-22] MEDS: Proteinase Inhibitor 5 VIAL in EMPTY EVACUATED CONTAINER 1 EACH 100 VIAL IVPB (12:07)
[2021-01-29] MEDS: Normal Saline Flush 10 ML SYR IVP (11:56)
[2021-01-29] MEDS: Proteinase Inhibitor 5 VIAL in EMPTY EVACUATED CONTAINER 1 EACH 100 VIAL IVPB (11:56)
[2021-02-05] MEDS: Normal Saline Flush 10 ML SYR IVP (11:35)
[2021-02-05] MEDS: Proteinase Inhibitor 5 VIAL in EMPTY EVACUATED CONTAINER 1 EACH 100 VIAL IVPB (11:54)
[2021-02-12] MEDS: Normal Saline Flush 10 ML SYR IVP (12:05)
[2021-02-12] MEDS: Proteinase Inhibitor 5 VIAL in EMPTY EVACUATED CONTAINER 1 EACH 100 VIAL IVPB (12:05)
== END 2021-02-15 23:59 | disposition home or self-care (01) ==
LOC: INF 01:42
PROVIDERS: PCP Family Medicine; Visit Provider Internal Medicine
DX: E88.01 Alpha-1-antitrypsin deficiency
CPT/HCPCS: 96374; J0257

== ENCOUNTER 2021-02-13 01:34 | Outpatient (CLI) | payer MEDICARE, SELFPAY ==
[2021-02-13 13:04] LABS: Source Nasal/Nares
[2021-02-13 15:52] LABS: COVID-19 PCR Negative (Negative)
== END 2021-02-13 01:35 | disposition home or self-care (01) ==
LOC: LBO 01:35
PROVIDERS: PCP Family Medicine; Visit Provider Internal Medicine
DX: Z20.822 Contact with and (suspected) exposure to COVID-19 (principal); Z01.818 Encounter for other preprocedural examination
CPT/HCPCS: 87635

== ENCOUNTER 2021-03-11 02:07 | Outpatient (RCR) | payer MEDICARE, SELFPAY ==
[2021-02-20] MEDS: Normal Saline Flush 10 ML SYR IVP (11:26)
[2021-02-20] MEDS: Proteinase Inhibitor 5 VIAL in EMPTY EVACUATED CONTAINER 1 EACH 100 VIAL IVPB (11:49)
[2021-02-26] MEDS: Normal Saline Flush 10 ML SYR IVP (11:26)
[2021-02-26] MEDS: Proteinase Inhibitor 5 VIAL in EMPTY EVACUATED CONTAINER 1 EACH 100 VIAL IVPB (11:58)
[2021-03-06] MEDS: Proteinase Inhibitor 5 VIAL in EMPTY EVACUATED CONTAINER 1 EACH 100 VIAL IVPB (08:40)
[2021-03-06] MEDS: Normal Saline Flush 10 ML SYR IVP (08:40)
[2021-03-11 08:43] LABS: MCH 31.1 pg (27.0-33.0); MCHC 32.6 % (32.0-36.0); MCV 95.4 fL (80-95); MPV 10.7 fL (8.0-11.0); Platelet Count 304 10^3/uL (130-400); RBC 4.82 10^6/uL (3.93-5.22); RDW 12.5 % (11.7-14.6); RDW-SD 44.1 fL; WBC 6.57 10^3/uL (4.4-10.8)
[2021-03-11] MEDS: Normal Saline Flush 10 ML SYR IVP (08:53)
[2021-03-11] MEDS: Proteinase Inhibitor 5 VIAL in EMPTY EVACUATED CONTAINER 1 EACH 100 VIAL IVPB (08:53)
[2021-03-11 08:57] LABS: ALT 33 U/L (14-59); AST 21 U/L (15-37); Albumin 3.5 g/dL (3.4-5.0); Alkaline Phosphatase 98 U/L (46-116); Anion Gap 8.2 mmol/L (3-11); BUN 16 mg/dL (7-18); Bilirubin, Total 0.6 mg/dL (0.2-1.0); CO2 30.8 mmol/L (21.0-32.0); Calcium 9.4 mg/dL (8.5-10.1); Calculated LDL 136 mg/dL (<100); Chloride 102 mmol/L (98-107); Cholesterol 195 mg/dL (<200); Estimated GFR 55.14 (mL/min/1.73m2); Glucose 181 mg/dL (74-106); HDL Cholesterol 44 mg/dL (40-60); Potassium 3.8 mmol/L (3.5-5.1); Sodium 141 mmol/L (136-145); Total Protein 8.1 g/dL (6.4-8.2); Triglyceride 75 mg/dL (<150)
[2021-03-11 09:02] LABS: Hemoglobin A1C 8.1 % (<5.7)
== END 2021-03-17 23:59 | disposition home or self-care (01) ==
LOC: INF 02:07
PROVIDERS: PCP Family Medicine; Visit Provider Internal Medicine
DX: E88.01 Alpha-1-antitrypsin deficiency (principal); Z13.220 Encounter for screening for lipoid disorders; E11.9 Type 2 diabetes mellitus without complications; J44.9 Chronic obstructive pulmonary disease, unspecified; K21.9 Gastro-esophageal reflux disease without esophagitis; Z00.00 Encounter for general adult medical examination without abnormal findings; I10 Essential (primary) hypertension
CPT/HCPCS: 36415; 80053; 80061; 85027; 96374; 83036; J0257

== ENCOUNTER 2021-04-16 02:45 | Outpatient (RCR) | payer MEDICARE, SELFPAY ==
[2021-03-19] MEDS: Proteinase Inhibitor 5 VIAL in EMPTY EVACUATED CONTAINER 1 EACH 100 VIAL IVPB (11:43)
[2021-03-19] MEDS: Normal Saline Flush 10 ML SYR IVP (11:43)
[2021-03-26 11:38] LABS: Abs Immature Grans 0.02 10^3/uL (0.0-0.06); Absolute Basophil Count 0.05 10^3/uL (0.0-0.2); Absolute Eosinophil Count 0.16 10^3/uL (0.0-0.7); Absolute Lymphocyte Count 1.72 10^3/uL (1.2-3.4); Absolute Monocyte Count 1.12 10^3/uL (0.1-0.8); Absolute Neutrophil Count 4.95 10^3/uL (1.2-6.7); Basophils % 0.6; HCT 47.3 % (36.0-46.0); HGB 15.6 g/dL (11.2-15.7); Immature Grans % 0.2; Lymphocytes % 21.4; MCH 31.3 pg (27.0-33.0); MCV 94.8 fL (80-95); MPV 10.5 fL (8.0-11.0); Neutrophils % 61.8; Nucleated RBC 0 %; Platelet Count 340 10^3/uL (130-400); RBC 4.99 10^6/uL (3.93-5.22); RDW 12.6 % (11.7-14.6); RDW-SD 43.7 fL; WBC 8.02 10^3/uL (4.4-10.8)
[2021-03-26 12:02] LABS: ALT 32 U/L (14-59); AST 23 U/L (15-37); Estimated GFR 55.14 (mL/min/1.73m2); TSH (W/Ref FT4) 2.41 uIU/mL (0.36-3.74)
[2021-03-26] MEDS: Normal Saline Flush 10 ML SYR IVP (12:35)
[2021-03-26] MEDS: Proteinase Inhibitor 5 VIAL in EMPTY EVACUATED CONTAINER 1 EACH 100 VIAL IVPB (12:35)
[2021-03-28 05:29] LABS: Voriconazole, S 0.3 mcg/mL (1.0 - 5.5)
[2021-04-03] MEDS: Normal Saline Flush 10 ML SYR IVP (11:53)
[2021-04-03] MEDS: Proteinase Inhibitor 5 VIAL in EMPTY EVACUATED CONTAINER 1 EACH 100 VIAL IVPB (11:53)
[2021-04-09] MEDS: Normal Saline Flush 10 ML SYR IVP (11:37)
[2021-04-09] MEDS: Proteinase Inhibitor 5 VIAL in EMPTY EVACUATED CONTAINER 1 EACH 100 VIAL IVPB (11:50)
[2021-04-16] MEDS: Proteinase Inhibitor 5 VIAL in EMPTY EVACUATED CONTAINER 1 EACH 100 VIAL IVPB (12:00)
[2021-04-16] MEDS: Normal Saline Flush 10 ML SYR IVP (12:01)
== END 2021-04-17 23:59 | disposition home or self-care (01) ==
LOC: INF 02:45
PROVIDERS: Internal Medicine Infectious Disease; PCP Family Medicine; Visit Provider Internal Medicine
DX: E88.01 Alpha-1-antitrypsin deficiency (principal); E03.9 Hypothyroidism, unspecified; Q34.9 Congenital malformation of respiratory system, unspecified; E83.42 Hypomagnesemia
CPT/HCPCS: 36415; 96374; 80299; 82565; 83735; 84443; 84450; 84460; 85025; J0257

== ENCOUNTER 2021-05-14 02:41 | Outpatient (CLI) | payer MEDICARE, SELFPAY ==
--- NOTE | 2021-05-14 08:00 | DI.CT_ITS ---
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 TECHNIQUE: Imaging protocol: Axial computed tomography images were obtained and coronal and sagittal reformatted images were created and reviewed. COMPARISON: CT CT CHEST WO from 01/06/2021 FINDINGS: Tracheobronchial tree: Patent where visualized. Bronchiectatic changes are seen in the lower lobes. Pulmonary parenchyma: No consolidation or dominant measurable mass. Emphysematous changes are present in the lungs. Pleural and parenchymal scarring is present. Mediastinum and [place]: No dominant adenopathy. There is a 4.2 AP by 4 cm transverse by 4 cm craniocau dad fluid collection in the superior mediastinum. No significant change in size seen compared to demetria or examination. There does appear to be some thickening of the wall of the fluid collection now. Th e esophagus is otherwise unremarkable Thyroid gland: Unremarkable. Pleura: No effusion or pneumothorax. Heart: The heart is not dilated. Coronary artery calcifications are present. No pericardial effusion . Aorta: Thoracic aorta non-dilated. Atherosclerosis. Upper abdomen: Unremarkable. Lymph nodes: Within normal limits. Soft tissues: Unremarkable. Bones:Within normal limits for the patient's age. Postsurgical changes in the right shoulder. IMPRESSION: 1. Persistent cystic lesion in the superior mediastinum. There does appear to be some thickening of the wall of the fluid collection. Infection or inflammation should be considered. Please correlate clinically. 2. Pulmonary emphysema and bronchiectasis. RADIATION DOSE DELIVERED: 623.41mGy.cm Total DLP 623.41mGy.cm Total DLP DATA REPOSITORY: All CT scans at this facility are submitted to the National Radiology Data Registry (NRDR) Dose Index Registry (DIR) with the [employer] ([employer]). RADIATION OPTIMIZATION: All CT scans at this facility use at least one of these dose optimization te chniques: automated exposure control; mA and/or kV adjustment per patient size (includes targeted exa ms where dose is matched to clinical indication); or iterative reconstruction.
== END 2021-05-14 03:01 ==
PROVIDERS: PCP Family Medicine; Visit Provider Student in an Organized Health Care Education/Training Program
DX: J47.9 Bronchiectasis, uncomplicated; J43.8 Other emphysema; J98.59 Other diseases of mediastinum, not elsewhere classified; Q34.9 Congenital malformation of respiratory system, unspecified
CPT/HCPCS: 71250; 96374; J0257

== ENCOUNTER 2021-05-14 03:10 | Outpatient (RCR) | payer MEDICARE, SELFPAY ==
[2021-04-23] MEDS: Proteinase Inhibitor 5 VIAL in EMPTY EVACUATED CONTAINER 1 EACH 100 VIAL IVPB (11:43)
[2021-04-23] MEDS: Normal Saline Flush 10 ML SYR IVP (11:43)
[2021-04-30] MEDS: Proteinase Inhibitor 5 VIAL in EMPTY EVACUATED CONTAINER 1 EACH 100 VIAL IVPB (12:00)
[2021-04-30] MEDS: Normal Saline Flush 10 ML SYR IVP (12:00)
[2021-05-07] MEDS: Normal Saline Flush 10 ML SYR IVP (12:36)
[2021-05-07] MEDS: Proteinase Inhibitor 5 VIAL in EMPTY EVACUATED CONTAINER 1 EACH 100 VIAL IVPB (12:36)
[2021-05-14] MEDS: Normal Saline Flush 10 ML SYR IVP (11:43)
[2021-05-14] MEDS: Proteinase Inhibitor 5 VIAL in EMPTY EVACUATED CONTAINER 1 EACH 100 VIAL IVPB (11:53)
== END 2021-05-18 23:59 | disposition home or self-care (01) ==
LOC: INF 03:10
PROVIDERS: PCP Family Medicine; Visit Provider Internal Medicine
DX: E88.01 Alpha-1-antitrypsin deficiency (principal)
CPT/HCPCS: 96374; J0257

== ENCOUNTER 2021-05-21 14:02 | Outpatient (REF) | payer MEDICARE, SELFPAY ==
[2021-05-22 12:27] LABS: COVID-19 RT-PCR UVMMC Result Negative (Negative)
== END 2021-05-21 14:03 | disposition home or self-care (01) ==
LOC: NCHCN 14:02
PROVIDERS: PCP Family Medicine; Visit Provider Family Medicine
DX: Z20.822 Contact with and (suspected) exposure to COVID-19 (principal)
CPT/HCPCS: U0003; U0005

== ENCOUNTER 2021-06-11 01:19 | Outpatient (RCR) | payer MEDICARE, SELFPAY ==
[2021-05-29] MEDS: Proteinase Inhibitor 5 VIAL in EMPTY EVACUATED CONTAINER 1 EACH 100 VIAL IVPB (13:40)
[2021-05-29] MEDS: Normal Saline Flush 10 ML SYR IVP (13:40)
[2021-06-04] MEDS: Normal Saline Flush 10 ML SYR IVP (11:36)
[2021-06-04] MEDS: Proteinase Inhibitor 5 VIAL in EMPTY EVACUATED CONTAINER 1 EACH 100 VIAL IVPB (11:56)
[2021-06-11] MEDS: Normal Saline Flush 10 ML SYR IVP (11:21)
[2021-06-11] MEDS: Proteinase Inhibitor 5 VIAL in EMPTY EVACUATED CONTAINER 1 EACH 100 VIAL IVPB (11:55)
== END 2021-06-15 23:59 | disposition home or self-care (01) ==
LOC: INF 01:19
PROVIDERS: PCP Family Medicine; Visit Provider Internal Medicine
DX: E88.01 Alpha-1-antitrypsin deficiency (principal)
CPT/HCPCS: 96374; U0003; J0257

== ENCOUNTER 2021-07-16 03:01 | Outpatient (RCR) | payer MEDICARE, SELFPAY ==
[2021-06-18] MEDS: Normal Saline Flush 10 ML SYR IVP (11:57)
[2021-06-18] MEDS: Proteinase Inhibitor 5 VIAL in EMPTY EVACUATED CONTAINER 1 EACH 100 VIAL IVPB (11:57)
[2021-06-25] MEDS: Normal Saline Flush 10 ML SYR IVP (12:21)
[2021-06-25] MEDS: Proteinase Inhibitor 5 VIAL in EMPTY EVACUATED CONTAINER 1 EACH 100 VIAL IVPB (12:21)
[2021-07-02] MEDS: Normal Saline Flush 10 ML SYR IVP (11:29)
[2021-07-02] MEDS: Proteinase Inhibitor 5 VIAL in EMPTY EVACUATED CONTAINER 1 EACH 100 VIAL IVPB (11:53)
[2021-07-09] MEDS: Proteinase Inhibitor 5 VIAL in EMPTY EVACUATED CONTAINER 1 EACH 100 VIAL IVPB (11:46)
[2021-07-09] MEDS: Normal Saline Flush 10 ML SYR IVP (11:46)
[2021-07-16] MEDS: Proteinase Inhibitor 5 VIAL in EMPTY EVACUATED CONTAINER 1 EACH 100 VIAL IVPB (11:52)
[2021-07-16] MEDS: Normal Saline Flush 10 ML SYR IVP (11:52)
== END 2021-07-16 23:59 | disposition home or self-care (01) ==
LOC: INF 03:01
PROVIDERS: PCP Family Medicine; Visit Provider Internal Medicine
DX: E88.01 Alpha-1-antitrypsin deficiency (principal)
CPT/HCPCS: 96374; J0257

== ENCOUNTER 2021-08-13 02:30 | Outpatient (RCR) | payer MEDICARE, SELFPAY ==
[2021-07-23] MEDS: Normal Saline Flush 10 ML SYR IVP (11:20)
[2021-07-23] MEDS: Proteinase Inhibitor 5 VIAL in EMPTY EVACUATED CONTAINER 1 EACH 100 VIAL IVPB (11:53)
[2021-07-30] MEDS: Proteinase Inhibitor 5 VIAL in EMPTY EVACUATED CONTAINER 1 EACH 100 VIAL IVPB (11:48)
[2021-07-30] MEDS: Normal Saline Flush 10 ML SYR IVP (11:48)
[2021-08-06] MEDS: Normal Saline Flush 10 ML SYR IVP (11:15)
[2021-08-06] MEDS: Proteinase Inhibitor 5 VIAL in EMPTY EVACUATED CONTAINER 1 EACH 100 VIAL IVPB (11:48)
[2021-08-13] MEDS: Proteinase Inhibitor 5 VIAL in EMPTY EVACUATED CONTAINER 1 EACH 100 VIAL IVPB (11:53)
[2021-08-13] MEDS: Normal Saline Flush 10 ML SYR IVP (11:53)
== END 2021-08-15 23:59 | disposition home or self-care (01) ==
LOC: INF 02:30
PROVIDERS: PCP Family Medicine; Visit Provider Internal Medicine
DX: E88.01 Alpha-1-antitrypsin deficiency (principal)
CPT/HCPCS: 96374; J0257

== ENCOUNTER 2021-09-10 02:50 | Outpatient (RCR) | payer MEDICARE, SELFPAY ==
[2021-08-20] MEDS: Proteinase Inhibitor 5 VIAL in EMPTY EVACUATED CONTAINER 1 EACH 100 VIAL IVPB (11:44)
[2021-08-20] MEDS: Normal Saline Flush 10 ML SYR IVP (11:45)
[2021-08-27] MEDS: Normal Saline Flush 10 ML SYR IVP (11:16)
[2021-08-27] MEDS: Proteinase Inhibitor 5 VIAL in EMPTY EVACUATED CONTAINER 1 EACH 100 VIAL IVPB (11:57)
[2021-09-03] MEDS: Proteinase Inhibitor 5 VIAL in EMPTY EVACUATED CONTAINER 1 EACH 100 VIAL IVPB (11:48)
[2021-09-03] MEDS: Normal Saline Flush 10 ML SYR IVP (11:49)
[2021-09-10] MEDS: Normal Saline Flush 10 ML SYR IVP (11:12)
[2021-09-10] MEDS: Proteinase Inhibitor 5 VIAL in EMPTY EVACUATED CONTAINER 1 EACH 100 VIAL IVPB (11:45)
== END 2021-09-15 23:59 | disposition home or self-care (01) ==
LOC: INF 02:50
PROVIDERS: PCP Family Medicine; Visit Provider Internal Medicine
DX: J44.9 Chronic obstructive pulmonary disease, unspecified (principal); E88.01 Alpha-1-antitrypsin deficiency
CPT/HCPCS: 96374; J0257

== ENCOUNTER 2021-09-25 10:28 | Outpatient (CLI) | payer MEDICARE, SELFPAY ==
[2021-09-25] MEDS: Albuterol HFA 18 GM 200 PUFF INH IH (17:20)
[2021-09-25] MEDS: Inhaler, Assist Device 1 EACH MC (17:21)
--- NOTE | 2021-09-29 15:53 | W.PFT ---
Date of service: 09/25/21 Time of Service: 15:13 Pulmonary Function Test Result Requesting Provider Iliana Indications: AATD, COPD Interpretation Spirometry: Although the FEV1/FVC ratio is normal, airflow obstruction is likely due to the flow volume loop and volume time curve appearance. There is no significant bronchodilator response. Lung Volumes: Normal lung volumes. Diffusion Capacity: The diffusion is reduced Airway Pressure: Normal airways resistance. Impression Likely moderate airflow limitation based on flow volume loop and a decreased diffusion. This could represent COPD with emphysema. Clinical Correlation therefore is recommended.
== END 2021-09-25 10:29 | disposition home or self-care (01) ==
PROVIDERS: PCP Family Medicine; Visit Provider Student in an Organized Health Care Education/Training Program
DX: R94.2 Abnormal results of pulmonary function studies; E88.01 Alpha-1-antitrypsin deficiency; J44.9 Chronic obstructive pulmonary disease, unspecified; R06.09 Other forms of dyspnea; Z87.891 Personal history of nicotine dependence
CPT/HCPCS: 94060; 94726; 94729

== ENCOUNTER 2021-10-15 02:09 | Outpatient (RCR) | payer MEDICARE, SELFPAY ==
[2021-09-17] MEDS: Normal Saline Flush 10 ML SYR IVP (11:22)
[2021-09-17] MEDS: Proteinase Inhibitor 5 VIAL in EMPTY EVACUATED CONTAINER 1 EACH 100 VIAL IVPB (12:02)
[2021-09-24] MEDS: Normal Saline Flush 10 ML SYR IVP (11:51)
[2021-09-24] MEDS: Proteinase Inhibitor 5 VIAL in EMPTY EVACUATED CONTAINER 1 EACH 100 VIAL IVPB (11:51)
[2021-10-01] MEDS: Normal Saline Flush 10 ML SYR IVP (11:25)
[2021-10-01] MEDS: Proteinase Inhibitor 5 VIAL in EMPTY EVACUATED CONTAINER 1 EACH 100 VIAL IVPB (11:45)
[2021-10-09] MEDS: Proteinase Inhibitor 5 VIAL in EMPTY EVACUATED CONTAINER 1 EACH 50 VIAL IVPB (11:37)
[2021-10-09] MEDS: Normal Saline Flush 10 ML SYR IVP (11:40)
[2021-10-15] MEDS: Normal Saline Flush 10 ML SYR IVP (11:21)
[2021-10-15] MEDS: Proteinase Inhibitor 5 VIAL in EMPTY EVACUATED CONTAINER 1 EACH 200 VIAL IVPB (11:52)
== END 2021-10-15 23:59 | disposition home or self-care (01) ==
LOC: INF 02:09
PROVIDERS: PCP Family Medicine; Visit Provider Internal Medicine
DX: E88.01 Alpha-1-antitrypsin deficiency (principal)
CPT/HCPCS: 96374; J0257

== ENCOUNTER 2021-11-12 02:42 | Outpatient (RCR) | payer MEDICARE, SELFPAY ==
[2021-10-22] MEDS: Normal Saline Flush 10 ML SYR IVP (11:23)
[2021-10-22] MEDS: Proteinase Inhibitor 5 VIAL in EMPTY EVACUATED CONTAINER 1 EACH 200 VIAL IVPB (11:51)
[2021-10-29] MEDS: Normal Saline Flush 10 ML SYR IVP (11:30)
[2021-10-29] MEDS: Proteinase Inhibitor 5 VIAL in EMPTY EVACUATED CONTAINER 1 EACH 200 VIAL IVPB (11:36)
[2021-11-05] MEDS: Normal Saline Flush 10 ML SYR IVP (11:49)
[2021-11-05] MEDS: Proteinase Inhibitor 5 VIAL in EMPTY EVACUATED CONTAINER 1 EACH 60 VIAL IVPB (11:49)
[2021-11-12] MEDS: Normal Saline Flush 10 ML SYR IVP (11:24)
[2021-11-12] MEDS: Proteinase Inhibitor 5 VIAL in EMPTY EVACUATED CONTAINER 1 EACH 200 VIAL IVPB (11:49)
== END 2021-11-15 23:59 | disposition home or self-care (01) ==
LOC: INF 02:42
PROVIDERS: PCP Family Medicine; Visit Provider Internal Medicine
DX: E88.01 Alpha-1-antitrypsin deficiency (principal)
CPT/HCPCS: 96365; 96374; J0257

== ENCOUNTER 2021-12-11 00:37 | Outpatient (RCR) | payer MEDICARE, SELFPAY ==
[2021-11-19] MEDS: Proteinase Inhibitor 5 VIAL in EMPTY EVACUATED CONTAINER 1 EACH 200 VIAL IVPB (11:58)
[2021-11-19] MEDS: Normal Saline Flush 10 ML SYR IVP (11:59)
[2021-11-26] MEDS: Normal Saline Flush 10 ML SYR IVP (11:54)
[2021-11-26] MEDS: Proteinase Inhibitor 5 VIAL in EMPTY EVACUATED CONTAINER 1 EACH 100 VIAL IVPB (11:54)
[2021-12-03] MEDS: Normal Saline Flush 10 ML SYR IVP (11:24)
[2021-12-03] MEDS: Proteinase Inhibitor 5 VIAL in EMPTY EVACUATED CONTAINER 1 EACH 200 VIAL IVPB (11:44)
[2021-12-11] MEDS: Normal Saline Flush 10 ML SYR IVP (11:18)
[2021-12-11] MEDS: Proteinase Inhibitor 5 VIAL in EMPTY EVACUATED CONTAINER 1 EACH 100 VIAL IVPB (12:01)
== END 2021-12-16 23:59 | disposition home or self-care (01) ==
LOC: INF 00:37
PROVIDERS: PCP Family Medicine; Visit Provider Internal Medicine
DX: E88.01 Alpha-1-antitrypsin deficiency (principal)
CPT/HCPCS: 96374; J0257

== ENCOUNTER 2022-01-14 03:52 | Outpatient (RCR) | payer MEDICARE, SELFPAY ==
[2021-12-17] MEDS: Proteinase Inhibitor 5 VIAL in EMPTY EVACUATED CONTAINER 1 EACH 100 VIAL IVPB (11:52)
[2021-12-17] MEDS: Normal Saline Flush 10 ML SYR IVP (11:54)
[2021-12-24] MEDS: Proteinase Inhibitor 5 VIAL in EMPTY EVACUATED CONTAINER 1 EACH 100 VIAL IVPB (11:42)
[2021-12-24] MEDS: Normal Saline Flush 10 ML SYR IVP (11:42)
[2021-12-30] MEDS: Proteinase Inhibitor 5 VIAL in EMPTY EVACUATED CONTAINER 1 EACH 100 VIAL IVPB (11:45)
[2022-01-07] MEDS: Normal Saline Flush 10 ML SYR IVP (11:19)
[2022-01-07] MEDS: Proteinase Inhibitor 5 VIAL in EMPTY EVACUATED CONTAINER 1 EACH 100 VIAL IVPB (12:02)
[2022-01-14] MEDS: Normal Saline Flush 10 ML SYR IVP (11:20)
[2022-01-14] MEDS: Proteinase Inhibitor 5 VIAL in EMPTY EVACUATED CONTAINER 1 EACH 100 VIAL IVPB (11:41)
== END 2022-01-15 23:59 | disposition home or self-care (01) ==
LOC: INF 03:52
PROVIDERS: PCP Family Medicine; Visit Provider Internal Medicine
DX: E88.01 Alpha-1-antitrypsin deficiency (principal)
CPT/HCPCS: 96374; J0257

== ENCOUNTER 2022-02-11 03:37 | Outpatient (RCR) | payer MEDICARE, SELFPAY ==
[2022-01-21] MEDS: Normal Saline Flush 10 ML SYR IVP (11:38)
[2022-01-21] MEDS: Proteinase Inhibitor 5 VIAL in EMPTY EVACUATED CONTAINER 1 EACH 200 VIAL IVPB (11:38)
[2022-01-29] MEDS: Proteinase Inhibitor 5 VIAL in EMPTY EVACUATED CONTAINER 1 EACH 100 VIAL IVPB (13:37)
[2022-01-29] MEDS: Normal Saline Flush 10 ML SYR IVP (14:24)
[2022-02-05] MEDS: Proteinase Inhibitor 5 VIAL in EMPTY EVACUATED CONTAINER 1 EACH 100 VIAL IVPB (11:49)
[2022-02-05] MEDS: Normal Saline Flush 10 ML SYR IVP (11:49)
[2022-02-11] MEDS: Normal Saline Flush 10 ML SYR IVP (11:34)
[2022-02-11] MEDS: Proteinase Inhibitor 5 VIAL in EMPTY EVACUATED CONTAINER 1 EACH 200 VIAL IVPB (11:43)
== END 2022-02-15 23:59 | disposition home or self-care (01) ==
LOC: INF 03:37
PROVIDERS: PCP Family Medicine; Visit Provider Internal Medicine
DX: E88.01 Alpha-1-antitrypsin deficiency (principal)
CPT/HCPCS: 96365; 96374; J0257

== ENCOUNTER 2022-03-09 02:42 | Outpatient (RCR) | payer MEDICARE, SELFPAY ==
[2022-02-18] MEDS: Normal Saline Flush 10 ML SYR IVP (11:13)
[2022-02-18] MEDS: Proteinase Inhibitor 5 VIAL in EMPTY EVACUATED CONTAINER 1 EACH 100 VIAL IVPB (11:32)
[2022-02-25] MEDS: Proteinase Inhibitor 5 VIAL in EMPTY EVACUATED CONTAINER 1 EACH 200 VIAL IVPB (12:03)
[2022-02-25] MEDS: Normal Saline Flush 10 ML SYR IVP (12:03)
[2022-03-04] MEDS: Normal Saline Flush 10 ML SYR IVP (11:52)
[2022-03-04] MEDS: Proteinase Inhibitor 5 VIAL in EMPTY EVACUATED CONTAINER 1 EACH 100 VIAL IVPB (11:52)
[2022-03-09] MEDS: Proteinase Inhibitor 5 VIAL in EMPTY EVACUATED CONTAINER 1 EACH 200 VIAL IVPB (11:56)
[2022-03-09] MEDS: Normal Saline Flush 10 ML SYR IVP (11:57)
== END 2022-03-17 23:59 | disposition home or self-care (01) ==
LOC: INF 02:42
PROVIDERS: PCP Family Medicine; Visit Provider Internal Medicine
DX: E88.01 Alpha-1-antitrypsin deficiency (principal)
CPT/HCPCS: 96374; J0257

== ENCOUNTER 2022-04-15 01:52 | Outpatient (RCR) | payer MEDICARE, SELFPAY ==
[2022-03-18] MEDS: Normal Saline Flush 10 ML SYR IVP (11:44)
[2022-03-18] MEDS: Proteinase Inhibitor 5 VIAL in EMPTY EVACUATED CONTAINER 1 EACH 100 VIAL IVPB (11:44)
[2022-03-25] MEDS: Normal Saline Flush 10 ML SYR IVP (12:13)
[2022-03-25] MEDS: Proteinase Inhibitor 5 VIAL in EMPTY EVACUATED CONTAINER 1 EACH 100 VIAL IVPB (12:13)
[2022-04-01] MEDS: Normal Saline Flush 10 ML SYR IVP (11:34)
[2022-04-01] MEDS: Proteinase Inhibitor 5 VIAL in EMPTY EVACUATED CONTAINER 1 EACH 200 VIAL IVPB (11:34)
[2022-04-08] MEDS: Proteinase Inhibitor 5 VIAL in EMPTY EVACUATED CONTAINER 1 EACH 200 VIAL IVPB (11:59)
[2022-04-08] MEDS: Normal Saline Flush 10 ML SYR IVP (11:59)
[2022-04-15] MEDS: Proteinase Inhibitor 5 VIAL in EMPTY EVACUATED CONTAINER 1 EACH 200 VIAL IVPB (11:47)
[2022-04-15] MEDS: Normal Saline Flush 10 ML SYR IVP (11:47)
== END 2022-04-17 23:59 | disposition home or self-care (01) ==
LOC: INF 01:52
PROVIDERS: PCP Family Medicine; Visit Provider Internal Medicine
DX: E88.01 Alpha-1-antitrypsin deficiency (principal)
CPT/HCPCS: 96374; J0257

== ENCOUNTER 2022-05-14 00:52 | Outpatient (RCR) | payer MEDICARE, SELFPAY ==
[2022-04-22] MEDS: Proteinase Inhibitor 5 VIAL in EMPTY EVACUATED CONTAINER 1 EACH 200 VIAL IVPB (11:53)
[2022-04-22] MEDS: Normal Saline Flush 10 ML SYR IVP (11:56)
[2022-04-29] MEDS: Normal Saline Flush 10 ML SYR IVP (11:44)
[2022-04-29] MEDS: Proteinase Inhibitor 5 VIAL in EMPTY EVACUATED CONTAINER 1 EACH 200 VIAL IVPB (11:44)
[2022-05-14] MEDS: Proteinase Inhibitor 5 VIAL in EMPTY EVACUATED CONTAINER 1 EACH 500 VIAL IVPB (10:37)
== END 2022-05-18 23:59 | disposition home or self-care (01) ==
LOC: INF 00:52
PROVIDERS: PCP Family Medicine; Visit Provider Internal Medicine
DX: E88.01 Alpha-1-antitrypsin deficiency (principal)
CPT/HCPCS: 96365; 96374; J0257

== ENCOUNTER 2022-06-10 02:42 | Outpatient (RCR) | payer MEDICARE, SELFPAY ==
[2022-05-20] MEDS: Proteinase Inhibitor 5 VIAL in EMPTY EVACUATED CONTAINER 1 EACH 100 VIAL IVPB (12:12)
[2022-05-20] MEDS: Normal Saline Flush 10 ML SYR IVP (12:13)
[2022-05-28] MEDS: Normal Saline Flush 10 ML SYR IVP (11:24)
[2022-05-28] MEDS: Proteinase Inhibitor 5 VIAL in EMPTY EVACUATED CONTAINER 1 EACH 100 VIAL IVPB (11:48)
[2022-06-03] MEDS: Normal Saline Flush 10 ML SYR IVP (11:45)
[2022-06-03] MEDS: Proteinase Inhibitor 5 VIAL in EMPTY EVACUATED CONTAINER 1 EACH 100 VIAL IVPB (11:45)
[2022-06-10] MEDS: Proteinase Inhibitor 5 VIAL in EMPTY EVACUATED CONTAINER 1 EACH 100 VIAL IVPB (12:04)
[2022-06-10] MEDS: Normal Saline Flush 10 ML SYR IVP (12:04)
== END 2022-06-15 23:59 | disposition home or self-care (01) ==
LOC: INF 02:42
PROVIDERS: PCP Family Medicine; Visit Provider Internal Medicine
DX: E88.01 Alpha-1-antitrypsin deficiency (principal)
CPT/HCPCS: 96374; J0257

== ENCOUNTER 2022-07-15 02:05 | Outpatient (RCR) | payer MEDICARE, SELFPAY ==
[2022-06-17] MEDS: Proteinase Inhibitor 5 VIAL in EMPTY EVACUATED CONTAINER 1 EACH 100 VIAL IVPB (11:55)
[2022-06-17] MEDS: Normal Saline Flush 10 ML SYR IVP (11:56)
[2022-06-24] MEDS: Proteinase Inhibitor 5 VIAL in EMPTY EVACUATED CONTAINER 1 EACH 100 VIAL IVPB (11:51)
[2022-06-24] MEDS: Normal Saline Flush 10 ML SYR IVP (11:52)
[2022-07-02] MEDS: Proteinase Inhibitor 5 VIAL in EMPTY EVACUATED CONTAINER 1 EACH 100 VIAL IVPB (12:03)
[2022-07-02] MEDS: Normal Saline Flush 10 ML SYR IVP (12:03)
[2022-07-08] MEDS: Proteinase Inhibitor 5 VIAL in EMPTY EVACUATED CONTAINER 1 EACH 75 VIAL IVPB (11:47)
[2022-07-08] MEDS: Normal Saline Flush 10 ML SYR IVP (12:17)
[2022-07-15] MEDS: Proteinase Inhibitor 5 VIAL in EMPTY EVACUATED CONTAINER 1 EACH 100 VIAL IVPB (11:24)
[2022-07-15] MEDS: Normal Saline Flush 10 ML SYR IVP (11:24)
== END 2022-07-16 23:59 | disposition home or self-care (01) ==
LOC: INF 02:05
PROVIDERS: PCP Family Medicine; Visit Provider Internal Medicine
DX: E88.01 Alpha-1-antitrypsin deficiency (principal)
CPT/HCPCS: 96374; J0257

== ENCOUNTER 2022-07-27 14:37 | Emergency (ER) | payer MEDICARE, SELFPAY ==
[2022-07-27 14:42] VITALS: BP 175/72; PULSE 79; RESP 18; TEMP 36.6; O2SAT 95
--- NOTE | 2022-07-27 14:45 | DI.RAD_ITS ---
Exam(s) XR WRIST LT COMPLETE EXAM: XR WRIST LT COMPLETE CLINICAL HISTORY: fall, distal radius pain. TECHNIQUE: 2D digital imaging was performed. COMPARISON: No exams were available for comparison FINDINGS: 3 views No evidence of acute fracture nor dislocation. Mild negative ulnar variance noted. Scaphoid and sca pholunate distance normal. IMPRESSION: No acute fracture. DATA REPOSITORY: RADIATION DOSE DELIVERED:
--- NOTE | 2022-07-27 14:45 | DI.RAD_ITS ---
Exam(s) XR HAND LT COMPLETE EXAM: XR HAND LT COMPLETE CLINICAL HISTORY: pain at base of 4th metacarpal. TECHNIQUE: 2D digital imaging was performed. COMPARISON: No exams were available for comparison FINDINGS: 3 views No evidence of fracture nor subluxations. Mild dorsal soft tissue swelling. No radiopaque foreign b penelope. No osseous lesions. IMPRESSION: No acute osseous findings in the hand. DATA REPOSITORY: RADIATION DOSE DELIVERED:
--- NOTE | 2022-07-27 15:03 | W.ED.GENAD ---
Discharge Plan Disposition Patient Disposition: Home Discharge Details Clinical Impression: Left wrist sprain Primary Care Provider: Tori Seay ED Provider: Virgil Faith Home Meds and New Rx's Prescriptions: No Action Stiolto Respimat 2.5-2.5 mcg/actuation mist 2 puff inhalation DAILY Qty: 4 8RF garlic 2,000 mg capsule 2,000 mg PO TID metformin 1,000 mg tablet 1,000 mg PO BID potassium 99 mg tablet See Rx Instructions .ROUTE DIRECTED Rx Instructions: as directed; Prolastin-C 1,000 mg (+/-)/20 mL solution See Rx Instructions IV .COMPLEX Rx Instructions: IV as directed; albuterol sulfate [Ventolin HFA] 90 mcg/actuation HFA aerosol inhaler See Rx Instructions inhalation DIRECTED Rx Instructions: inhalation as directed; cholecalciferol (vitamin D3) 1,000 UNIT capsule 4,000 unit PO DAILY iodizyme 6.25 mg PO DAILY Patient Comments: patient states there is no mg on this medication and that it is all natural, a small little brown pill levothyroxine 75 MCG tablet 75 mcg PO DAILY Qty: 30 inositol 500 mg Tablet 500 mg PO DAILY alpha lipoic acid 200 mg Capsule 200 mg PO BID magnesium 250 mg Tablet 500 mg PO DAILY vitamin W19-adjol acid 1,000-400 mcg Tablet, Sublingual 1 tab SUBLINGUAL DAILY Discharge Instructions Instructions: Wrist Sprain (ED) Additional Instructions: At this time your x-ray shows no evidence of fracture. You likely have a notable sprain, but there may also be a very small fracture that we cannot see on the imaging. Please continue to use the euthanasia. Please use the wrist splint as directed for the next 1 to 2 weeks as your wrist heals. If you notice any worsening of your symptoms, or any new symptoms such as vomiting, diarrhea, fever, chills, shortness of breath, chest pain, numbness, weakness, or fainting , please return immediately to the emergency department for reevaluation. Please follow up with your primary care provider as soon as possible for reassessment and reevaluation. As always, it was a pleasure participating in your medical care today. Referrals: Tori Seay [Primary Care Provider] - Medical Decision Making This is a 71-year-old female with a past medical history of COPD on 2 L of oxygen, alpha-1 antitrypsin deficiency, hypertension, hypothyroidism, previous bronchiectasis, who presents today after fall. Patient was walking when she tripped and fell onto her left hand that was outstretched. That was 4 days ago. She has been applying euthanasia on it daily ever since. She went to see her outpatient musculoskeletal provider who did recommend x-ray to rule out fracture. Patient denies striking her head. She denies loss of consciousness. She did have a small bruise on her knee which feels better. She denies any other significant pain. Pain is made worse with movement of the hand. Swelling has improved. Pain has improved as well. She has been using a simple left-handed wrist brace. Patient's left hand demonstrates mild bruising, tenderness over the proximal fourth metacarpal as well as the distal radius. Pain with movement but patient does demonstrate good services rep strength. Normal sensation in all fingertips. Brisk capillary refill. Swelling is notably diminished compared to patient's reported previous swelling. There is a small amount of bruising on the medial aspect of the right knee, but no other signs of significant trauma throughout the rest of the body. We will get an x-ray to rule out acute process, monitor closely and reassess. 3:45 PM X-ray shows no evidence of acute fracture. Suspect sprain at the very least with the potential for small fracture that we cannot visualize on radiographic imaging. Patient remained stable. We will give a more robust wrist splint for home use. Discussed red flags for which to return. I have extensively reviewed the treatment plan and discharge instructions with the patient. I have addressed all patient concerns at this time. The patient was made aware of what symptoms to monitor for that would warrant a return to the emergency department. Discussed the plan with the patient, they demonstrate verbal understanding and agreement with our assessment and plan at this time. The documentation in this chart was dictated using [employer] dictation software. Please excuse any dictation errors. FINDINGS: 3 views No evidence of acute fracture nor dislocation. Mild negative ulnar variance noted. Scaphoid and scapholunate distance normal. IMPRESSION: No acute fracture. FINDINGS: 3 views No evidence of fracture nor subluxations. Mild dorsal soft tissue swelling. No radiopaque foreign body. No osseous lesions. IMPRESSION: No acute osseous findings in the hand. HPI General Date/Time Provider Initiated Documentation: 07/27/22 14:40. HPI Narrative: This is a 71-year-old female with a past medical history of COPD on 2 L of oxygen, alpha-1 antitrypsin deficiency, hypertension, hypothyroidism, previous bronchiectasis, who presents today after fall. Patient was walking when she tripped and fell onto her left hand that was outstretched. That was 4 days ago. She has been applying euthanasia on it daily ever since. She went to see her outpatient musculoskeletal provider who did recommend x-ray to rule out fracture. Patient denies striking her head. She denies loss of consciousness. She did have a small bruise on her knee which feels better. She denies any other significant pain. Pain is made worse with movement of the hand. Swelling has improved. Pain has improved as well. She has been using a simple left-handed wrist brace. Related Data Home Medications Medication Instructions Recorded Confirmed cholecalciferol (vitamin D3) 25 4,000 unit PO DAILY 06/27/14 07/27/22 mcg (1,000 unit) capsule Iodizyme 6.25 mg PO DAILY 07/24/14 07/27/22 levothyroxine 75 mcg tablet 75 mcg PO DAILY #30 tab-caps 12/19/14 07/27/22 metformin 1,000 mg tablet 1,000 mg PO BID 07/10/19 07/27/22 magnesium 250 mg tablet 500 mg PO DAILY 01/25/20 07/27/22 vitamin B12 1,000 mcg-folic acid 1 tab sublingual DAILY 01/25/20 07/27/22 400 mcg sublingual tablet alpha-1 proteinase inhib.(hum) See Rx Instructions IV .COMPLEX 11/14/20 07/27/22 1,000 mg (+/-)/20 mL IV solution (Prolastin-C) potassium 99 mg tablet See Rx Instructions .Route 11/14/20 07/27/22 DIRECTED albuterol sulfate 90 mcg/actuation See Rx Instructions inhalation 12/24/20 07/27/22 aerosol inhaler (Ventolin HFA) DIRECTED alpha lipoic acid 200 mg capsule 200 mg PO BID 01/16/21 07/27/22 inositol 500 mg tablet 500 mg PO DAILY 01/16/21 07/27/22 tiotropium 2.5 mcg-olodaterol 2.5 2 puff inhalation DAILY #4 grams 03/25/21 07/27/22 mcg/actuation mist for inhalation (Stiolto Respimat) garlic 2,000 mg capsule 2,000 mg PO TID 06/09/21 07/27/22 Previous Rx's Medication Instructions Recorded tiotropium 2.5 mcg-olodaterol 2.5 2 puff inhalation DAILY #4 grams 03/25/21 mcg/actuation mist for inhalation (Stiolto Respimat) Allergies Allergy/AdvReac Type Severity Reaction Status Date / Time meperidine HCl [From Demerol] AdvReac Intermediate agitated Unverified 07/27/22 14:45 and ugly tetracycline AdvReac Intermediate upsets Unverified 07/27/22 14:45 stomach amitriptyline AdvReac Mild adverse Unverified 07/27/22 14:45 effect lisinopril AdvReac Mild cough Unverified 07/27/22 14:45 General Stated Complaint: Orthopedic IGGY: 4 Review of Systems All systems reviewed & are unremarkable except as noted in HPI and below PFSH All Active Problems (Updated 07/27/22 @ 15:43 by Virgil Faith DO) Left wrist sprain (Acute) Fungal infection of lung (Acute) Tracheal cyst (Acute) Paratracheal cyst 2020 seen with fluid collection - fungal infection Tendonitis of upper biceps tendon of left shoulder (Acute 06/20/19) Yrwhq-1-yysvimbnbdq deficiency (Acute) receives Prolastin infusion daily [facility]ZZ phenotype. 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 Hiatal hernia History of injury of neck per patient C6-C7 compression Hx of bronchiectasis Hypertension Hypothyroid Polyalgia Vitamin D deficiency Surgical History Abdominal hysterectomy (~1985) LINDA/BSO Appendectomy (~1968) CYSTECTOMY (~01/2004) L BR CYST REMOVED Endoscopy (12/22/04) History of cataract surgery LATERAL EPICONDYLE SURGERY (04/30/03) Open Carpal Tunnel release (~12/1999) LEFT RIGHT ANKLE AND KNEE SURGERY (10/16/95) Rotator Cuff Repair (09/22/07) RIGHT TKA (03/27/10) RIGHT Family History Mother COPD (chronic obstructive pulmonary disease) Multiple sclerosis Father Essential hypertension CAD (coronary artery disease) Alzheimer disease Grandfather Diabetes Personal history of malignant neoplasm PROSTATE Mental disorder DEMENTIA Grandfather Essential hypertension Heart disease Grandmother Essential hypertension Stroke Multiple sclerosis Emphysema lung Social History Smoking/Tobacco Use Status: Former Tobacco Use tobacco type: cigarettes Quit Date: 04/18/01 Tobacco: How many years used: 30 Smoking risk assessment performed?: Yes Alcohol Intake: current Alcohol Intake frequency: holidays/special occasions only Alcohol type: beer Drug use: Never Substance use type: does not use Do you feel safe at home: Yes Do you feel safe in your relationship?: Yes Exam Narrative Exam Narrative: 1.Const: Well-nourished, Well-developed, appearing stated age 2.Eyes: PERRL, no conjunctival injection, and symmetrical lids. 3.ENT: Atraumatic external nose and ears. Moist MM. Neck: Symmetric, trachea midline, No thyromegaly. 4.CVS: +S1/S2, No murmurs or gallops. Peripheral pulses 2+ and equal in all extremities. Brisk capillary refill in all extremities. 5.RESP: Unlabored respiratory effort. Clear to auscultation bilaterally. No wheezes rales or rhonchi 6.GI: Soft, Nontender/Nondistended, No hepatosplenomegaly. No guarding or rebound. 7.MSK: Patient's left hand demonstrates mild bruising, tenderness over the proximal fourth metacarpal as well as the distal radius. Pain with movement but patient does demonstrate good services rep strength. Normal sensation in all fingertips. Brisk capillary refill. Swelling is notably diminished compared to patient's reported previous swelling. There is a small amount of bruising on the medial aspect of the right knee, but no other signs of significant trauma throughout the rest of the body. 8.Skin: Warm, Dry. No rashes or lesions. 9.Neuro: mice raiser II-XII grossly intact. Sensation grossly intact, no focal neurologic deficits. 10.Psych: (AAO) x3. Appropriate mood and affect Course Vital Signs Vital signs: Vital Signs Temperature 36.6 C 07/27/22 14:42 Pulse 79 07/27/22 14:42 Respiratory Rate 18 07/27/22 14:42 Blood Pressure 175/72 H 07/27/22 14:42 Pulse Oximetry 95 07/27/22 14:42 Temperature 36.6 C 07/27/22 14:42 Temperature Source Tympanic 07/27/22 14:42 Pulse 79 07/27/22 14:42 Respiratory Rate 18 07/27/22 14:42 Respiratory Effort Normal, Non-Labored 07/27/22 14:44 Blood Pressure 175/72 H 07/27/22 14:42 Pulse Oximetry 95 07/27/22 14:42 Oxygen Delivery Method Nasal Cannula 07/27/22 14:42 Oxygen Flow Rate 2 07/27/22 14:42
[2022-07-27 15:59] VITALS: BP 159/83; PULSE 86; RESP 18; O2SAT 93
== END 2022-07-27 16:02 | disposition home or self-care (01) ==
PROVIDERS: Emergency Provider Student in an Organized Health Care Education/Training Program; PCP Family Medicine
DX: S63.502A Unspecified sprain of left wrist, initial encounter (principal); I10 Essential (primary) hypertension; E03.9 Hypothyroidism, unspecified; J43.9 Emphysema, unspecified; E11.9 Type 2 diabetes mellitus without complications; Z79.84 Long term (current) use of oral hypoglycemic drugs; W01.0XXA Fall on same level from slipping, tripping and stumbling without subsequent striking against object, initial encounter; Y93.01 Activity, walking, marching and hiking
CPT/HCPCS: 99283; 73110; 73130

== ENCOUNTER 2022-07-29 14:39 | Emergency (ER) | payer MEDICARE, SELFPAY ==
[2022-07-29 14:41] VITALS: BP 158/68; PULSE 84; RESP 18; TEMP 36.7; O2SAT 95
--- NOTE | 2022-07-29 15:15 | DI.RAD_ITS ---
Exam(s) XR RIBS RT W PA LAT CHEST CLINICAL HISTORY: Fall, Rib pain. COMPARISON: CT CT CHEST WO from 05/14/2021 TECHNIQUE:: PA and lateral views of the chest and four views of the right ribs were performed. FINDINGS: LUNGS:Emphysematous changes and scarring. No pleural abnormality seen. HEART: Normal. MEDIASTINUM: Normal. BONES: Old right rib fractures. No acute displaced rib fracture is seen. No bony destructive lesion is seen. Old left clavicle fracture. Degenerative changes mid thoracic spine. OTHER FINDINGS: None. IMPRESSION: 1. Old right rib fractures. No acute fractures identified. 2. No acute pulmonary findings.
--- NOTE | 2022-07-29 17:07 | ED.GENADUL_ITS ---
Discharge Plan Disposition Patient Disposition: Home Discharge Details Clinical Impression: Contusion of rib Primary Care Provider: Tori Seay ED Provider: Taisha Avila Home Meds and New Rx's Prescriptions: New lidocaine [Lidoderm] 5 % adhesive patch,medicated 1 patch topical DAILY Qty: 15 0RF Rx Instructions: leave on most painful area for up to 12 hrs Continued Stiolto Respimat 2.5-2.5 mcg/actuation mist 2 puff inhalation DAILY Qty: 4 8RF garlic 2,000 mg capsule 2,000 mg PO TID metformin 1,000 mg tablet 1,000 mg PO BID potassium 99 mg tablet See Rx Instructions .ROUTE DIRECTED Rx Instructions: as directed; Prolastin-C 1,000 mg (+/-)/20 mL solution See Rx Instructions IV .COMPLEX Rx Instructions: IV as directed; albuterol sulfate [Ventolin HFA] 90 mcg/actuation HFA aerosol inhaler See Rx Instructions inhalation DIRECTED Rx Instructions: inhalation as directed; cholecalciferol (vitamin D3) 1,000 UNIT capsule 4,000 unit PO DAILY iodizyme 6.25 mg PO DAILY Patient Comments: patient states there is no mg on this medication and that it is all natural, a small little brown pill levothyroxine 75 MCG tablet 75 mcg PO DAILY Qty: 30 inositol 500 mg Tablet 500 mg PO DAILY alpha lipoic acid 200 mg Capsule 200 mg PO BID magnesium 250 mg Tablet 500 mg PO DAILY vitamin V52-wsxtt acid 1,000-400 mcg Tablet, Sublingual 1 tab SUBLINGUAL DAILY Discharge Instructions Instructions: Rib Contusion (ED) Additional Instructions: Take at least 8-10 deep breaths in and out daily Take Tylenol 650 every 4 hours as needed for pain, do not exceed 3 g in a day If you notice that your oxygen levels are below 90 or you are having worsening pain or fever please return immediately Lidoderm patch, 12 hours on, 12 hours off Referrals: Tori Seay [Primary Care Provider] - 1 week Discharge Data Discharge Date/Time-TO BE ENTERED AT DEPARTURE: 07/29/22 17:16 Medical Decision Making Patient presenting with chest wall pain, no worsening shortness of breath, this was after mechanical fall She has comfortable discharge home, her oxygen level is stable She was offered oxycodone and has declined any opiate analgesia, she will take Tylenol as needed for discomfort She is encouraged to take at least 8-10 deep breaths in and out daily to prevent pneumonia development She is also supplied with Lidoderm patches that she will apply topically She is encouraged to return immediately should she have hypoxia, oxygen saturation less than 90%, chest pain, fever, or with any new or worsening complaints She was comfortable discharge home at this time, chest x-ray per radiology interpretation my review does not show evidence of acute fracture, pneumothorax, or obvious contusion HPI General Date/Time Provider Initiated Documentation: 07/29/22 14:53 . HPI Narrative: Rosalina Arredondo is a 71-year-old female with history of alpha 1 antitrypsin, CO PD, oxygen dependency, pulmonary fibrosis and bronchiectasis who presents with report of fall several days ago, mechanical in nature. She injured her left wrist at the time but then developed some chest wall pain yesterday. She has had pain with breathing since that time. She did land on the side. She states the pain is exacerbated with position change and deep breaths. She states her oxygen levels have been within normal limits at home. She denies any additional falls. She denies any hemoptysis. Denies history of coagulopathy or any abdominal discomfort. Related Data Home Medications Medication Instructions Recorded Confirmed cholecalciferol (vitamin D3) 25 4,000 unit PO DAILY 06/27/14 07/27/22 mcg (1,000 unit) capsule Iodizyme 6.25 mg PO DAILY 07/24/14 07/27/22 levothyroxine 75 mcg tablet 75 mcg PO DAILY #30 tab-caps 12/19/14 07/27/22 metformin 1,000 mg tablet 1,000 mg PO BID 07/10/19 07/27/22 magnesium 250 mg tablet 500 mg PO DAILY 01/25/20 07/27/22 vitamin B12 1,000 mcg-folic acid 1 tab sublingual DAILY 01/25/20 07/27/22 400 mcg sublingual tablet alpha-1 proteinase inhib.(hum) See Rx Instructions IV .COMPLEX 11/14/20 07/27/22 1,000 mg (+/-)/20 mL IV solution (Prolastin-C) potassium 99 mg tablet See Rx Instructions .Route 11/14/20 07/27/22 DIRECTED albuterol sulfate 90 mcg/actuation See Rx Instructions inhalation 12/24/20 07/27/22 aerosol inhaler (Ventolin HFA) DIRECTED alpha lipoic acid 200 mg capsule 200 mg PO BID 01/16/21 07/27/22 inositol 500 mg tablet 500 mg PO DAILY 01/16/21 07/27/22 tiotropium 2.5 mcg-olodaterol 2.5 2 puff inhalation DAILY #4 grams 03/25/21 07/27/22 mcg/actuation mist for inhalation (Stiolto Respimat) garlic 2,000 mg capsule 2,000 mg PO TID 06/09/21 07/27/22 lidocaine 5 % topical patch 1 patch topical DAILY #15 ea 07/29/22 (Lidoderm) Previous Rx's Medication Instructions Recorded tiotropium 2.5 mcg-olodaterol 2.5 2 puff inhalation DAILY #4 grams 03/25/21 mcg/actuation mist for inhalation (Stiolto Respimat) lidocaine 5 % topical patch 1 patch topical DAILY #15 ea 07/29/22 (Lidoderm) Allergies Allergy/AdvReac Type Severity Reaction Status Date / Time meperidine HCl [From Demerol] AdvReac Intermediate agitated Unverified 07/27/22 14:45 and ugly tetracycline AdvReac Intermediate upsets Unverified 07/27/22 14:45 stomach amitriptyline AdvReac Mild adverse Unverified 07/27/22 14:45 effect lisinopril AdvReac Mild cough Unverified 07/27/22 14:45 General Stated Complaint: Chest/Rib IGGY: 4 PFSH All Active Problems (Updated 07/29/22 @ 17:00 by NEISHA Richter) Left wrist sprain (Acute) Contusion of rib (Acute) Fungal infection of lung (Acute) Tracheal cyst (Acute) Paratracheal cyst 2020 seen with fluid collection - fungal infection Tendonitis of upper biceps tendon of left shoulder (Acute 06/20/19) Tszvk-4-soxmigytmnq deficiency (Acute) receives Prolastin infusion daily [facility] phenotype. History of cataract surgery (Chronic) COPD (chronic obstructive pulmonary disease) (Chronic) Chronic respiratory failure with hypoxia (Acute) Bronchiectasis (Acute) Pulmonary fibrosis (Acute) COPD with acute exacerbation (Acute) Medical History Chest mass COPD (chronic obstructive pulmonary disease) Diabetes Emphysema due to mmauk-[id number] deficiency Hiatal hernia History of injury of neck per patient C6-C7 compression Hx of bronchiectasis Hypertension Hypothyroid Polyalgia Vitamin D deficiency Surgical History Abdominal hysterectomy (~1985) LINDA/BSO Appendectomy (~1968) CYSTECTOMY (~01/2004) L BR CYST REMOVED Endoscopy (12/22/04) History of cataract surgery LATERAL EPICONDYLE SURGERY (04/30/03) Open Carpal Tunnel release (~12/1999) LEFT RIGHT ANKLE AND KNEE SURGERY (10/16/95) Rotator Cuff Repair (09/22/07) RIGHT TKA (03/27/10) RIGHT Family History Mother COPD (chronic obstructive pulmonary disease) Multiple sclerosis Father Essential hypertension CAD (coronary artery disease) Alzheimer disease Grandfather Diabetes Personal history of malignant neoplasm PROSTATE Mental disorder DEMENTIA Grandfather Essential hypertension Heart disease Grandmother Essential hypertension Stroke Multiple sclerosis Emphysema lung Social History Smoking/Tobacco Use Status: Former Tobacco Use tobacco type: cigarettes Quit Date: 04/18/01 Tobacco: How many years used: 30 Smoking risk assessment performed?: Yes Alcohol Intake: current Alcohol Intake frequency: holidays/special occasions only Alcohol type: beer Drug use: Never Substance use type: does not use Do you feel safe at home: Yes Do you feel safe in your relationship?: Yes Exam Narrative Exam Narrative: Patient is calm and cooperative, she appears chronically ill, no visible sign of head trauma, pupils equal round reactive to light and accommodation, no cervical spine tenderness on exam, chest wall tenderness appreciated under right breast, specifically no tenderness in right upper quadrant of abdomen, no crepitus to right chest wall, lungs clear to auscultation bilaterally, cardiac rate and rhythm regular, no abdominal tenderness appreciated, no visible sign of trauma, alert and oriented x4, GCS 15, tenderness to left wrist, ecchymosis noted, no tenderness to left elbow Course Vital Signs Vital signs: Vital Signs Temperature 36.7 C 07/29/22 14:41 Pulse 84 07/29/22 14:41 Respiratory Rate 18 07/29/22 14:41 Blood Pressure 158/68 H 07/29/22 14:41 Pulse Oximetry 95 07/29/22 14:41 Temperature 36.7 C 07/29/22 14:41 Temperature Source Skin 07/29/22 14:41 Pulse 84 07/29/22 14:41 Respiratory Rate 18 07/29/22 14:41 Blood Pressure 158/68 H 07/29/22 14:41 Pulse Oximetry 95 07/29/22 14:41 Oxygen Delivery Method Nasal Cannula 07/29/22 14:41 Oxygen Flow Rate 2 07/29/22 14:41 Pain Level 8 07/29/22 14:41 Comment chronic oxygen user 07/29/22 14:41
[2022-07-29] MEDS: Lidocaine 5% Patch 1 PATCH TP (17:15)
== END 2022-07-29 17:16 | disposition home or self-care (01) ==
PROVIDERS: Emergency Provider Physician Assistant; PCP Family Medicine
DX: S20.219A Contusion of unspecified front wall of thorax, initial encounter (principal); W19.XXXA Unspecified fall, initial encounter; I10 Essential (primary) hypertension; E03.9 Hypothyroidism, unspecified; E11.9 Type 2 diabetes mellitus without complications; J43.9 Emphysema, unspecified; Z79.84 Long term (current) use of oral hypoglycemic drugs
CPT/HCPCS: 99283; 71046; 71100; 99284

== ENCOUNTER 2022-08-12 01:38 | Outpatient (RCR) | payer MEDICARE, SELFPAY ==
[2022-07-23] MEDS: Proteinase Inhibitor 5 VIAL in EMPTY EVACUATED CONTAINER 1 EACH 100 VIAL IVPB (11:54)
[2022-07-23] MEDS: Normal Saline Flush 10 ML SYR IVP (12:22)
[2022-08-06] MEDS: Proteinase Inhibitor 5 VIAL in EMPTY EVACUATED CONTAINER 1 EACH 100 VIAL IVPB (14:04)
[2022-08-06] MEDS: Normal Saline Flush 10 ML SYR IVP (14:04)
[2022-08-12] MEDS: Normal Saline Flush 10 ML SYR IVP (12:01)
[2022-08-12] MEDS: Proteinase Inhibitor 5 VIAL in EMPTY EVACUATED CONTAINER 1 EACH 400 VIAL IVPB (12:01)
== END 2022-08-15 23:59 | disposition home or self-care (01) ==
LOC: INF 01:38
PROVIDERS: PCP Family Medicine; Visit Provider Internal Medicine
DX: E88.01 Alpha-1-antitrypsin deficiency (principal)
CPT/HCPCS: 96374; J0257

== ENCOUNTER 2022-09-09 11:15 | Outpatient (RCR) | payer MEDICARE, SELFPAY ==
[2022-08-19] MEDS: Proteinase Inhibitor 5 VIAL in EMPTY EVACUATED CONTAINER 1 EACH 400 VIAL IVPB (11:50)
[2022-08-19] MEDS: Normal Saline Flush 10 ML SYR IVP (11:51)
[2022-08-26] MEDS: Proteinase Inhibitor 5 VIAL in EMPTY EVACUATED CONTAINER 1 EACH 400 VIAL IVPB (11:37)
[2022-08-26] MEDS: Normal Saline Flush 10 ML SYR IVP (11:37)
[2022-09-02] MEDS: Proteinase Inhibitor 5 VIAL in EMPTY EVACUATED CONTAINER 1 EACH 400 VIAL IVPB (11:48)
[2022-09-02] MEDS: Normal Saline Flush 10 ML SYR IVP (11:48)
[2022-09-09] MEDS: Normal Saline Flush 10 ML SYR IVP (11:43)
[2022-09-09] MEDS: Proteinase Inhibitor 5 VIAL in EMPTY EVACUATED CONTAINER 1 EACH 100 VIAL IVPB (11:43)
== END 2022-09-15 23:59 | disposition home or self-care (01) ==
LOC: INF 11:15
PROVIDERS: PCP Family Medicine; Visit Provider Internal Medicine
DX: E88.01 Alpha-1-antitrypsin deficiency (principal)
CPT/HCPCS: 96374; J0257

== ENCOUNTER 2022-09-28 02:15 | Outpatient (CLI) | payer MEDICARE, SELFPAY ==
[2022-09-28] MEDS: Albuterol HFA 18 GM 200 PUFF INH IH (16:59)
[2022-09-28] MEDS: Inhaler, Assist Device 1 EACH MC (17:00)
--- NOTE | 2022-10-07 16:19 | W.PFT ---
Date of service: 09/28/22 Time of Service: 15:04 Pulmonary Function Test Result Indications: Alpha 1 antitrypsin deficiency Interpretation Spirometry: There is moderate airflow limitation. There is no significant bronchodilator response. Lung Volumes: There is hyperinflation and air trapping. Diffusion Capacity: Decreased diffusion Airway Pressure: Normal airways resistance. Impression Moderate airflow obstruction with a decreased diffusion and hyperinflation. Note: When compared to 03/29/22, the FVC has improved and the FEV1 remains stable. Clinical Correlation therefore is recommended.
== END 2022-09-28 02:16 | disposition home or self-care (01) ==
LOC: RT 02:15
PROVIDERS: PCP Family Medicine; Visit Provider Student in an Organized Health Care Education/Training Program
DX: E88.01 Alpha-1-antitrypsin deficiency (principal)
CPT/HCPCS: 94060; 94726; 94729

== ENCOUNTER 2022-10-14 03:40 | Outpatient (RCR) | payer MEDICARE, SELFPAY ==
[2022-09-17] MEDS: Proteinase Inhibitor 5 VIAL in EMPTY EVACUATED CONTAINER 1 EACH 400 VIAL IVPB (11:57)
[2022-09-17] MEDS: Normal Saline Flush 10 ML SYR IVP (11:57)
[2022-09-23] MEDS: Normal Saline Flush 10 ML SYR IVP (11:42)
[2022-09-23] MEDS: Proteinase Inhibitor 5 VIAL in EMPTY EVACUATED CONTAINER 1 EACH 400 VIAL IVPB (13:20)
[2022-09-30] MEDS: Normal Saline Flush 10 ML SYR IVP (11:25)
[2022-09-30] MEDS: Proteinase Inhibitor 5 VIAL in EMPTY EVACUATED CONTAINER 1 EACH 1 VIAL IVPB (11:46)
[2022-10-07] MEDS: Proteinase Inhibitor 5 VIAL in EMPTY EVACUATED CONTAINER 1 EACH 400 VIAL IVPB (11:58)
[2022-10-14] MEDS: Normal Saline Flush 10 ML SYR IVP (11:44)
[2022-10-14] MEDS: Proteinase Inhibitor 5 VIAL in EMPTY EVACUATED CONTAINER 1 EACH 100 VIAL IVPB (11:44)
== END 2022-10-15 23:59 | disposition home or self-care (01) ==
LOC: INF 03:40
PROVIDERS: PCP Family Medicine; Visit Provider Internal Medicine
DX: E88.01 Alpha-1-antitrypsin deficiency (principal)
CPT/HCPCS: 96374; J0257

== ENCOUNTER 2022-11-11 03:36 | Outpatient (RCR) | payer MEDICARE, SELFPAY ==
[2022-10-22] MEDS: Proteinase Inhibitor 5 VIAL in EMPTY EVACUATED CONTAINER 1 EACH 400 VIAL IVPB (11:48)
[2022-10-22] MEDS: Normal Saline Flush 10 ML SYR IVP (11:49)
[2022-10-28] MEDS: Normal Saline Flush 10 ML SYR IVP (12:00)
[2022-10-28] MEDS: Proteinase Inhibitor 5 VIAL in EMPTY EVACUATED CONTAINER 1 EACH 200 VIAL IVPB (12:00)
[2022-11-04] MEDS: Normal Saline Flush 10 ML SYR IVP (12:18)
[2022-11-04] MEDS: Proteinase Inhibitor 5 VIAL in EMPTY EVACUATED CONTAINER 1 EACH 100 VIAL IVPB (12:18)
[2022-11-11] MEDS: Proteinase Inhibitor 5 VIAL in EMPTY EVACUATED CONTAINER 1 EACH 100 VIAL IVPB (11:45)
[2022-11-11] MEDS: Normal Saline Flush 10 ML SYR IVP (11:46)
== END 2022-11-15 23:59 | disposition home or self-care (01) ==
LOC: INF 03:36
PROVIDERS: PCP Family Medicine; Visit Provider Internal Medicine
DX: E88.01 Alpha-1-antitrypsin deficiency (principal)
CPT/HCPCS: 96374; J0257

== ENCOUNTER 2022-12-10 00:53 | Outpatient (RCR) | payer MEDICARE, SELFPAY ==
[2022-11-17] MEDS: Normal Saline Flush 10 ML SYR IVP (11:38)
[2022-11-17] MEDS: Proteinase Inhibitor 5 VIAL in EMPTY EVACUATED CONTAINER 1 EACH 400 VIAL IVPB (11:59)
[2022-11-26] MEDS: Proteinase Inhibitor 5 VIAL in EMPTY EVACUATED CONTAINER 1 EACH 100 VIAL IVPB (11:48)
[2022-11-26] MEDS: Normal Saline Flush 10 ML SYR IVP (11:49)
[2022-12-03] MEDS: Proteinase Inhibitor 5 VIAL in EMPTY EVACUATED CONTAINER 1 EACH 100 VIAL IVPB (11:50)
[2022-12-10] MEDS: Normal Saline Flush 10 ML SYR IVP (11:24)
[2022-12-10] MEDS: Proteinase Inhibitor 5 VIAL in EMPTY EVACUATED CONTAINER 1 EACH 400 VIAL IVPB (11:48)
== END 2022-12-16 23:59 | disposition home or self-care (01) ==
LOC: INF 00:53
PROVIDERS: PCP Family Medicine; Visit Provider Internal Medicine
DX: E88.01 Alpha-1-antitrypsin deficiency (principal)
CPT/HCPCS: 96374; J0257

== ENCOUNTER 2022-12-20 12:29 | Emergency (ER) | payer MEDICARE, SELFPAY ==
[2022-12-20] VITALS (22 sets, daily range): BP systolic 121–151; BP diastolic 66–80; PULSE 79–98; RESP 22; TEMP 36.6; O2SAT 94–99
--- NOTE | 2022-12-20 12:45 | RT.EKG_ITS ---
APPROVED REPORT Exam: Resting ECG Reason for Exam: SOB, Weakness Patient Location: E HR:96 bpm ECG Measurements Heart Rate 96 AXIS LA 159 P 71 QRSd 77 QRS -21 QT 337 T 58 QTc 425 Conclusion Sinus rhythm...normal P axis, V-rate 60- 99 Low voltage, precordial leads...precordial leads <1.0mV
--- NOTE | 2022-12-20 13:03 | ED.GENADUL_ITS ---
Discharge Plan Disposition Patient Disposition: Home Condition: Stable Discharge Details Clinical Impression: Post-infection fatigue Primary Care Provider: Tori Seay ED Provider: Nella Venegas Home Meds and New Rx's Prescriptions: Continued Stiolto Respimat 2.5-2.5 mcg/actuation mist 2 puff inhalation DAILY Qty: 4 8RF garlic 2,000 mg capsule 2,000 mg PO TID metformin 1,000 mg tablet 1,000 mg PO BID potassium 99 mg tablet See Rx Instructions .ROUTE DIRECTED Rx Instructions: as directed; Prolastin-C 1,000 mg (+/-)/20 mL solution See Rx Instructions IV .COMPLEX Rx Instructions: IV as directed; albuterol sulfate [Ventolin HFA] 90 mcg/actuation HFA aerosol inhaler See Rx Instructions inhalation DIRECTED Rx Instructions: inhalation as directed; cholecalciferol (vitamin D3) 1,000 UNIT capsule 4,000 unit PO DAILY iodizyme 6.25 mg PO DAILY Patient Comments: patient states there is no mg on this medication and that it is all natural, a small little brown pill levothyroxine 75 MCG tablet 75 mcg PO DAILY Qty: 30 inositol 500 mg Tablet 500 mg PO DAILY alpha lipoic acid 200 mg Capsule 200 mg PO BID magnesium 250 mg Tablet 500 mg PO DAILY vitamin [id number] acid 1,000-400 mcg Tablet, Sublingual 1 tab SUBLINGUAL DAILY Discharge Instructions Instructions: Hyponatremia (ED), Fatigue (ED) Additional Instructions: At this time no evidence of pneumonia or fluid in your lungs. No blood clots in your lungs. No evidence of heart attack. Your fatigue is from your recent infection. Please continue to take your inhalers as previously prescribed. Follow up with primary care provider in 3-5 days. Return to ED sooner if any worsening or concerns. Increase oral fluids. Patient slightly low today. Please discuss this with your PCP. Referrals: Tori Seay [Primary Care Provider] - 5 days Discharge Data Discharge Date/Time-TO BE ENTERED AT DEPARTURE: 12/20/22 15:55 Medical Decision Making 71-year-old female with past medical history of COPD, bronchiectasis, pulmonary fibrosis, alpha 1 antitrypsin deficiency, obstructive sleep apnea presents to the ER with a chief complaint of weakness, decreased appetite and continued shortness of breath after finishing a 5-day stent of prednisone and azithromycin for subjective fever approximately 1 to 2 weeks ago. Patient also notes that she began with a right-sided forehead lesion which she attributes to shingles which she has had in the past couple weeks ago. She denies any nausea vomiting diarrhea or fever chills since finishing the antibiotics. She does have a bronchial cough and some expiratory wheezing on auscultation. She is on 2 L nasal cannula normally at home. Work-up ordered including CBC CMP, troponin, proBNP patient does report some intermittent swelling of her lower extremities no pitting edema noted on initial presentation. EKG ordered done by ED staff. Will consider chest x-ray versus CT imaging. She did have a CT in 2021 which showed a mediastinal mass. She also reports that she does have a cyst to her right anterior neck which is mold filled, she reports that since she has been sick that it has been swelling and causing pain. Labs show no leukocytosis H&H slightly elevated, monocytes also slightly elevated glucose 162, troponin less than 50 within normal limits, albumin 2.9 proBNP is 86 which is within normal limits. Sodium is slightly low at 135. Differential diagnosis includes but not limited to pneumonia, PE, CAD, RI, COPD exacerbation, dehydration. I did discuss CT results and lab results with patient who verbalized understanding. I do suspect slight dehydration. She also attributes the fatigue to the recent shingles infection. I did offer antiviral which patient declined at this time. Discussed tricked return instructions and follow-up care she verbalized understanding. Insert brittni patient was ambulatory without assistance upon discharge from department. Vital signs remained stable. Medical Records Medical records reviewed: Yes I reviewed the patient's medical records. Imaging Data Radiologic Study: Imaging: CT Scan Radiologist's impression: COMPARISON:? CT CT CHEST WO from 05/14/2021 FINDINGS: The examination is limited due to patient motion artifact.? Tracheobronchial tree: Patent where visualized. Pulmonary parenchyma: Emphysematous changes are present in the lungs.? There are increased interstitial markings in the right and left upper lobes.? No focal consolidating infiltrates are seen.? There is fibrosis and scarring seen in the lung bases.? Pulmonary Arteries: No evidence of filling defect to suggest pulmonary emboli. Mediastinum and Antonietta: Mildly prominent lymph nodes are seen in the mediastinum and antonietta.? The esophagus is unremarkable.? Visualized thyroid gland: Unremarkable.? Pleura: No effusion or pneumothorax. Heart: The heart is not dilated. Mild coronary artery calcification.? No francisco javier cardial effusion.? Aorta: Thoracic aorta non-dilated. No evidence of dissection. Atherosclerosis. Upper abdomen:? Unremarkable. Soft tissues: Unremarkable.? Bones: Within normal limits for the patient's age. IMPRESSION: 1. No evidence of a pulmonary embolism. 2. Pulmonary emphysema and pulmonary fibrosis.? No focal consolidating infiltrate.? Lab Data Lab results reviewed: Yes I reviewed the patient's lab results. Labs: Laboratory Tests Range/Units 12/20/22 12/20/22 12/20/22 13:17 13:17 13:17 WBC (4.4-10.8) 10^3/uL 9.08 RBC (3.93-5.22) 10^6/uL 5.04 Hgb (11.2-15.7) g/dL 15.9 H Hct (36.0-46.0) % 46.8 H MCV (80-95) fL 93 MCH (27.0-33.0) pg 31.5 MCHC (32.0-36.0) % 34.0 RDW (11.7-14.6) % 12.7 Plt Count (130-400) 10^3/uL 280 MPV (8.0-11.0) fL 10.4 Immature Gran % 0.8 Neutrophils % 65.6 Lymphocytes % 18.3 Monocytes % 14.5 Eosinophils % 0.6 Basophils % 0.2 Nucleated RBC % (0.0-0.3) % 0.0 Absolute Neutrophils (1.2-6.7) 10^3/uL 5.96 Absolute Lymphocytes (1.2-3.4) 10^3/uL 1.66 Absolute Monocytes (0.1-0.8) 10^3/uL 1.32 H Absolute Eosinophils (0.0-0.7) 10^3/uL 0.05 Absolute Basophils (0.0-0.2) 10^3/uL 0.02 Sodium (136-145) mmol/L 135 L Potassium (3.5-5.1) mmol/L 4.0 Chloride (98-107) mmol/L 99 Carbon Dioxide (21.0-32.0) mmol/L 29.8 Anion Gap (3-11) mmol/L 6.2 BUN (7-18) mg/dL 17 Creatinine (0.55-1.02) mg/dL 1.0 Est GFR (CKD-EPI 2020) (mL/min/1.73m2) 60.98 Glucose (74-106) mg/dL 162 H Calcium (8.5-10.1) mg/dL 9.2 Magnesium (1.8-2.4) mg/dL 2.1 Total Bilirubin (0.2-1.0) mg/dL 0.5 AST (15-37) U/L 32 ALT (14-59) U/L 44 Alkaline Phosphatase (46-116) U/L 112 Troponin I (<or=60) ng/L < 50 NT-Pro-B Natriuret Pep (<300) pg/mL 86 Total Protein (6.4-8.2) g/dL 8.3 H Albumin (3.4-5.0) g/dL 2.9 L HPI General Mode of arrival: ambulatory . Date/Time Provider Initiated Documentation: 12/20/22 12:50 . Limitations to Documentation: no limitations . Information obtained by: patient, RN notes reviewed and old records reviewed . HPI Narrative: 71-year-old female with past medical history of COPD, bronchiectasis, pulmonary fibrosis, alpha 1 antitrypsin deficiency, obstructive sleep apnea presents to the ER with a chief complaint of weakness, decreased appetite and continued shortness of breath after finishing a 5-day stent of prednisone and azithromycin for subjective fever approximately 1 to 2 weeks ago. Patient also notes that she began with a right-sided forehead lesion which she attributes to shingles which she has had in the past couple weeks ago. She denies any nausea vomiting diarrhea or fever chills since finishing the antibiotics. She does have a bronchial cough and some expiratory wheezing on auscultation. She is on 2 L nasal cannula normally at home. Related Data Home Medications Medication Instructions Recorded Confirmed cholecalciferol (vitamin D3) 25 4,000 unit PO DAILY 06/27/14 12/20/22 mcg (1,000 unit) capsule Iodizyme 6.25 mg PO DAILY 07/24/14 12/20/22 levothyroxine 75 mcg tablet 75 mcg PO DAILY #30 tab-caps 12/19/14 12/20/22 metformin 1,000 mg tablet 1,000 mg PO BID 07/10/19 12/20/22 magnesium 250 mg tablet 500 mg PO DAILY 01/25/20 12/20/22 vitamin B12 1,000 mcg-folic acid 1 tab sublingual DAILY 01/25/20 12/20/22 400 mcg sublingual tablet alpha-1 proteinase inhib.(hum) See Rx Instructions IV .COMPLEX 11/14/20 12/20/22 1,000 mg (+/-)/20 mL IV solution (Prolastin-C) potassium 99 mg tablet See Rx Instructions .Route 11/14/20 12/20/22 DIRECTED albuterol sulfate 90 mcg/actuation See Rx Instructions inhalation 12/24/20 12/20/22 aerosol inhaler (Ventolin HFA) DIRECTED alpha lipoic acid 200 mg capsule 200 mg PO BID 01/16/21 12/20/22 inositol 500 mg tablet 500 mg PO DAILY 01/16/21 12/20/22 tiotropium 2.5 mcg-olodaterol 2.5 2 puff inhalation DAILY #4 grams 03/25/21 12/20/22 mcg/actuation mist for inhalation (Stiolto Respimat) garlic 2,000 mg capsule 2,000 mg PO TID 06/09/21 12/20/22 Previous Rx's Medication Instructions Recorded tiotropium 2.5 mcg-olodaterol 2.5 2 puff inhalation DAILY #4 grams 03/25/21 mcg/actuation mist for inhalation (Stiolto Respimat) Allergies Allergy/AdvReac Type Severity Reaction Status Date / Time meperidine HCl [From Demerol] AdvReac Intermediate agitated Unverified 12/20/22 12:46 and ugly tetracycline AdvReac Intermediate upsets Unverified 12/20/22 12:46 stomach amitriptyline AdvReac Mild adverse Unverified 12/20/22 12:46 effect lisinopril AdvReac Mild cough Unverified 12/20/22 12:46 General Stated Complaint: SOB IGGY: 3 Review of Systems All systems reviewed & are unremarkable except as noted in HPI and below Constitutional Constitutional: Reports as per HPI, Reports chills, Reports fatigue, Reports lethargy, Reports malaise and Reports poor appetite Cardiovascular Cardiovascular: Denies chest pain and Reports dyspnea Respiratory Respiratory: Reports cough, Reports dyspnea and Reports wheezing Endocrine Endocrine: Reports fatigue Allergic/Immunologic Allergic/Immunologic: Reports wheezing PFSH All Active Problems (Updated 12/20/22 @ 15:38 by Nella Venegas NP) Post-infection fatigue (Acute) FREDDY (obstructive sleep apnea) (Chronic) Tracheal cyst (Acute) Paratracheal cyst 2020 seen with fluid collection - fungal infection Tendonitis of upper biceps tendon of left shoulder (Acute 06/20/19) Ipdvx-[id number] deficiency (Acute) receives Prolastin infusion daily [facility].ZZ phenotype. 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 Hiatal hernia History of injury of neck per patient C6-C7 compression Hx of bronchiectasis Hypertension Hypothyroid Polyalgia Vitamin D deficiency Surgical History Abdominal hysterectomy (~1985) LINDA/BSO Appendectomy (~1968) CYSTECTOMY (~01/2004) L BR CYST REMOVED Endoscopy (12/22/04) History of cataract surgery LATERAL EPICONDYLE SURGERY (04/30/03) Open Carpal Tunnel release (~12/1999) LEFT RIGHT ANKLE AND KNEE SURGERY (10/16/95) Rotator Cuff Repair (09/22/07) RIGHT TKA (03/27/10) RIGHT Family History Mother COPD (chronic obstructive pulmonary disease) Multiple sclerosis Father Essential hypertension CAD (coronary artery disease) Alzheimer disease Grandfather Diabetes Personal history of malignant neoplasm PROSTATE Mental disorder DEMENTIA Grandfather Essential hypertension Heart disease Grandmother Essential hypertension Stroke Multiple sclerosis Emphysema lung Social History Smoking/Tobacco Use Status: Former Tobacco Use tobacco type: cigarettes Quit Date: 04/18/01 Tobacco: How many years used: 30 Smoking risk assessment performed?: Yes Alcohol Intake: current Alcohol Intake frequency: holidays/special occasions only Alcohol type: beer Drug use: Never Substance use type: does not use Do you feel safe at home: Yes Do you feel safe in your relationship?: Yes Exam Narrative Exam Narrative: Constitutional: Alert and oriented x3. Appears stated age. Normal body habitus. Head: Normocephalic, no trauma. There is a small red lesion noted to right upper forehead with central scabs that is flat no vesicular lesions noted. Patient reports that it is improved since previous Eyes: Pupils PERRL, Red reflex noted, EOM's intact. Eyelids symmetrical without lesions, discharge, or swelling. ENT: Bilateral TM's WNL, External ear normal to inspection, no mastoid TTP, swelling, or erythema, Nasal turbinates WNL, no nasal discharge. Normal dentition, Posterior pharynx WNL, no exudate. Chest: RRR, Normal S1, S2, distal pulses intact. Resp: Lungs does have expiratory wheezing and prolonged expiration. Bilaterally scattered. She is on 2 L nasal cannula. Abdomen: Soft, non-distended, Normoactive bowel sounds all 4 quads. Musculoskeletal: Normal gait, 5/5 strength to all four extremities. Skin: No suspicious rashes or lesions. Capillary refill less than 2 sec. Neurologic: Cranial nerves II-XII intact. Alert and oriented x 3. Motor: No deficits noted. Sensory: Intact bilaterally all 4 extremities. Reflexes: DTR's intact bilaterally.. Hematologic/Lymphatic: No ecchymosis, no lymphadenopathy. Course Vital Signs Vital signs: Vital Signs Temperature 36.6 C 12/20/22 12:36 Pulse 90 12/20/22 12:36 Respiratory Rate 12/20/22 12:36 Blood Pressure 151/73 H 12/20/22 12:36 Pulse Oximetry 96 12/20/22 12:36 Temperature 36.6 C 12/20/22 12:36 Temperature Source Oral 12/20/22 12:36 Pulse 90 12/20/22 12:36 Respiratory Rate 22 12/20/22 12:36 Blood Pressure 151/73 H 12/20/22 12:36 Blood Pressure Position Sitting 12/20/22 12:36 Pulse Oximetry 96 12/20/22 12:36 Oxygen Delivery Method Nasal Cannula 12/20/22 12:36 Oxygen Flow Rate 2 12/20/22 12:36
[2022-12-20 13:29] LABS: Abs Immature Grans 0.07 10^3/uL (0.0-0.06); Absolute Basophil Count 0.02 10^3/uL (0.0-0.2); Absolute Eosinophil Count 0.05 10^3/uL (0.0-0.7); Absolute Lymphocyte Count 1.66 10^3/uL (1.2-3.4); Absolute Monocyte Count 1.32 10^3/uL (0.1-0.8); Absolute Neutrophil Count 5.96 10^3/uL (1.2-6.7); Basophils % 0.2; Eosinophils % 0.6; HCT 46.8 % (36.0-46.0); HGB 15.9 g/dL (11.2-15.7); Immature Grans % 0.8; Lymphocytes % 18.3; MCH 31.5 pg (27.0-33.0); MCV 93 fL (80-95); MPV 10.4 fL (8.0-11.0); Monocytes % 14.5; Neutrophils % 65.6; Platelet Count 280 10^3/uL (130-400); RBC 5.04 10^6/uL (3.93-5.22); RDW 12.7 % (11.7-14.6); RDW-SD 43.5 fL; WBC 9.08 10^3/uL (4.4-10.8)
[2022-12-20 13:47] LABS: ALT 44 U/L (14-59); AST 32 U/L (15-37); Albumin 2.9 g/dL (3.4-5.0); Alkaline Phosphatase 112 U/L (46-116); Anion Gap 6.2 mmol/L (3-11); BUN 17 mg/dL (7-18); Bilirubin, Total 0.5 mg/dL (0.2-1.0); CO2 29.8 mmol/L (21.0-32.0); Calcium 9.2 mg/dL (8.5-10.1); Chloride 99 mmol/L (98-107); Estimated GFR 60.98 (mL/min/1.73m2); Glucose 162 mg/dL (74-106); Magnesium 2.1 mg/dL (1.8-2.4); Sodium 135 mmol/L (136-145); Total Protein 8.3 g/dL (6.4-8.2); Troponin I < 50 ng/L (<or=60)
[2022-12-20 13:53] LABS: NT-proBNP 86 pg/mL (<300)
[2022-12-20] MEDS: Normal Saline - Diluent 50 ML VIAL IJ (14:04)
[2022-12-20] MEDS: Normal Saline Flush 10 ML SYR IVP (14:04)
[2022-12-20] MEDS: Omnipaque 350 MG/ML 100 ML BTL IJ (14:05)
--- NOTE | 2022-12-20 14:13 | DI.CT_ITS ---
Exam(s) CT CHEST PE CTA EXAM: CT CHEST PE CTA CLINICAL HISTORY: SOB, Hx Pulmonary Fibrosis, neck mass. TECHNIQUE: Imaging Protocol: Axial CT angiography was performed with multi-slice acquisition and mu lti-planar and/or 3D reconstructions. CONTRAST MATERIAL: Intravenous: Omnipaque 350 contrast volume:100 mL COMPARISON: CT CT CHEST WO from 05/14/2021 FINDINGS: The examination is limited due to patient motion artifact. Tracheobronchial tree: Patent where visualized. Pulmonary parenchyma: Emphysematous changes are present in the lungs. There are increased interstiti al markings in the right and left upper lobes. No focal consolidating infiltrates are seen. There i s fibrosis and scarring seen in the lung bases. Pulmonary Arteries: No evidence of filling defect to suggest pulmonary emboli. Mediastinum and Antonietta: Mildly prominent lymph nodes are seen in the mediastinum and antonietta. The esophag us is unremarkable. Visualized thyroid gland: Unremarkable. Pleura: No effusion or pneumothorax. Heart: The heart is not dilated. Mild coronary artery calcification. No pericardial effusion. Aorta: Thoracic aorta non-dilated. No evidence of dissection. Atherosclerosis. Upper abdomen: Unremarkable. Soft tissues: Unremarkable. Bones: Within normal limits for the patient's age. IMPRESSION: 1. No evidence of a pulmonary embolism. 2. Pulmonary emphysema and pulmonary fibrosis. No focal consolidating infiltrate. RADIATION DOSE DELIVERED: 357.51mGy.cm Total DLP DATA REPOSITORY: All CT scans at this facility are submitted to the National Radiology Data Registry (NRDR) Dose Index Registry (DIR) with the [employer] (ACR). RADIATION OPTIMIZATION: All CT scans at this facility use at least one of these dose optimization te chniques: automated exposure control; mA and/or kV adjustment per patient size (includes targeted exa ms where dose is matched to clinical indication); or iterative reconstruction.
[2022-12-20] MEDS: Normal Saline 1,000 ML 150 ML IV (14:26)
--- NOTE | 2022-12-20 15:06 | DI.VRAD_ITS ---
PROCEDURE INFORMATION: Exam: CTA Chest With Contrast Exam date and time: 12/20/2022 2:06 PM Age: 71 years old Clinical indication: Other: SOB, HX pulmonary fibrosis, neck mass TECHNIQUE: Imaging protocol: Computed tomographic angiography of the chest with contrast. Exam focused on the arteries. 3D rendering (Not supervised by radiologist): MIP and/or 3D reconstructed images were created by the technologist. Contrast material: OMNPAQUE 350; Contrast volume: 85 ml; Contrast route: INTRAVENOUS (IV); COMPARISON: CT CHEST WO 05/14/2021 1:05 PM FINDINGS: Pulmonary arteries: There is no evidence of a pulmonary embolus. Aorta: There are arteriosclerotic changes of the aorta. Lungs: There are emphysematous changes within the right upper lobe. There are increased interstitial markings within the right upper lobe. There is slight fibrosis and scarring at the lung bases. There are increased interstitial markings within the left upper lobe. There are emphysematous changes within left upper lobe. The lung windows are slightly degraded by respiratory motion artifact. Pleural spaces: Unremarkable. No pneumothorax. No pleural effusion. Heart: The heart and pericardium unremarkable. Lymph nodes: . No enlarged lymph nodes. Adrenal glands: There is a small left adrenal adenoma measuring approximately 1.4 cm. Bones/joints: There are degenerative changes of the thoracic spine. Soft tissues: Unremarkable. IMPRESSION: 1. No evidence of pulmonary embolus. 2. Chronic lung findings as above. 3. Small left adrenal adenoma. Dictated and Authenticated by: Rodney Muller MD. Ordering:KELSI Carmen MD
== END 2022-12-20 15:55 | disposition home or self-care (01) ==
PROVIDERS: Emergency Provider Registered Nurse Emergency; PCP Family Medicine
DX: R53.83 Other fatigue (principal); E87.1 Hypo-osmolality and hyponatremia; E86.0 Dehydration; J44.9 Chronic obstructive pulmonary disease, unspecified; J84.10 Pulmonary fibrosis, unspecified; E88.01 Alpha-1-antitrypsin deficiency; E11.9 Type 2 diabetes mellitus without complications; I10 Essential (primary) hypertension; Z79.84 Long term (current) use of oral hypoglycemic drugs; Z99.81 Dependence on supplemental oxygen; Z79.899 Other long term (current) drug therapy
CPT/HCPCS: 36415; 71275; 80053; 93005; 99284; 99285; 83735; 83880; 84484; 85025; 93010; J3490

== ENCOUNTER 2023-01-14 02:51 | Outpatient (RCR) | payer MEDICARE, SELFPAY ==
[2022-12-17] MEDS: Normal Saline Flush 10 ML SYR IVP (14:36)
[2022-12-24] MEDS: Normal Saline Flush 10 ML SYR IVP (11:56)
[2022-12-29] MEDS: Normal Saline Flush 10 ML SYR IVP (13:56)
[2023-01-07] MEDS: Normal Saline Flush 10 ML SYR IVP (12:16)
[2023-01-14] MEDS: Normal Saline Flush 10 ML SYR IVP (11:36)
[2023-01-14 11:50] LABS: Abs Immature Grans 0.02 10^3/uL (0.0-0.06); Absolute Basophil Count 0.04 10^3/uL (0.0-0.2); Absolute Eosinophil Count 0.19 10^3/uL (0.0-0.7); Absolute Lymphocyte Count 1.75 10^3/uL (1.2-3.4); Absolute Monocyte Count 1.11 10^3/uL (0.1-0.8); Absolute Neutrophil Count 4.36 10^3/uL (1.2-6.7); Basophils % 0.5; Eosinophils % 2.5; HCT 43.1 % (36.0-46.0); HGB 14.5 g/dL (11.2-15.7); Immature Grans % 0.3; Lymphocytes % 23.4; MCH 31.9 pg (27.0-33.0); MCHC 33.6 % (32.0-36.0); MCV 95 fL (80-95); MPV 10.8 fL (8.0-11.0); Monocytes % 14.9; Neutrophils % 58.4; Platelet Count 284 10^3/uL (130-400); RBC 4.55 10^6/uL (3.93-5.22); RDW 13.2 % (11.7-14.6); RDW-SD 46.1 fL; WBC 7.47 10^3/uL (4.4-10.8)
[2023-01-14 12:15] LABS: ALT 35 U/L (14-59); AST 25 U/L (15-37); Albumin 3.1 g/dL (3.4-5.0); Alkaline Phosphatase 117 U/L (46-116); Anion Gap 8.5 mmol/L (3-11); BUN 13 mg/dL (7-18); Bilirubin, Total 0.5 mg/dL (0.2-1.0); CO2 27.5 mmol/L (21.0-32.0); CREATININE 0.9 mg/dL (0.55-1.02); Calcium 9.4 mg/dL (8.5-10.1); Chloride 102 mmol/L (98-107); Estimated GFR 68.77 (mL/min/1.73m2); Glucose 152 mg/dL (74-106); Potassium 3.7 mmol/L (3.5-5.1); Sodium 138 mmol/L (136-145); TSH (W/Ref FT4) 0.22 uIU/mL (0.36-3.74); Total Protein 8.1 g/dL (6.4-8.2)
[2023-01-14 12:31] LABS: FREE T4 1.17 ng/dL (0.76-1.46)
== END 2023-01-15 23:59 | disposition home or self-care (01) ==
LOC: INF 02:51
PROVIDERS: PCP Family Medicine; Visit Provider Internal Medicine
DX: I10 Essential (primary) hypertension (principal)
CPT/HCPCS: 36415; 80053; 96374; 84439; 84443; 85025; J0257

== ENCOUNTER → 2023-02-08 02:00 | Outpatient (CLI) | payer MEDICARE, SELFPAY ==
--- NOTE | 2023-02-08 | DI.MAMMO_ITS ---
Exam(s) MAMMO SCREENING EXAM: MAMMO SCREENING CLINICAL HISTORY: MAMMO SCREENING Z12.31 TECHNIQUE: Mammograms were interpreted according to the usual protocol including computer analysis w [employer] CAD system, tomosynthesis and C-view imaging. COMPARISON: 2013 through 2020 FINDINGS: The breasts are composed of scattered fibroglandular densities, Breast Density category B. No suspicious masses or suspicious microcalcifications are seen. No skin thickening or abnormal axillary lymph nodes are seen. There has been no significant change from prior exams. IMPRESSION: BI-RADS Category 1, Negative mammogram Yearly screening mammography is recommended. Breast Density - Category B, scattered fibroglandular densities. A negative radiographic report should not delay biopsy if a dominant or clinically suspicious mass is present. Up to ten percent of cancers are not identified on mammography. A negative report may reinforce clinical impression. Adenosis and dense breasts may obscure an underlying neoplasm. False positive reports average 6 to 10%. Patient will receive a letter notifying them of these results.
== END ==
PROVIDERS: PCP Family Medicine; Visit Provider Family Medicine
DX: Z12.31 Encounter for screening mammogram for malignant neoplasm of breast (principal)
CPT/HCPCS: 77063; 77067

== ENCOUNTER 2023-02-11 00:55 | Outpatient (RCR) | payer MEDICARE, SELFPAY ==
[2023-01-21] MEDS: Normal Saline Flush 10 ML SYR IVP (11:25)
[2023-01-28] MEDS: Normal Saline Flush 10 ML SYR IVP (12:03)
[2023-02-04] MEDS: Normal Saline Flush 10 ML SYR IVP (11:36)
[2023-02-11] MEDS: Normal Saline Flush 10 ML SYR IVP (11:18)
[2023-02-11] MEDS: Proteinase Inhibitor 5 VIAL in EMPTY EVACUATED CONTAINER 1 EACH 400 VIAL IVPB (11:44)
== END 2023-02-15 23:59 | disposition home or self-care (01) ==
LOC: INF 00:55
PROVIDERS: PCP Family Medicine; Visit Provider Internal Medicine
DX: E88.01 Alpha-1-antitrypsin deficiency (principal)
CPT/HCPCS: 96374; J0257

== ENCOUNTER 2023-03-11 00:23 | Outpatient (RCR) | payer MEDICARE, SELFPAY ==
[2023-02-18] MEDS: Proteinase Inhibitor 5 VIAL in EMPTY EVACUATED CONTAINER 1 EACH 33.333 VIAL IVPB (11:45)
[2023-02-18] MEDS: Normal Saline Flush 10 ML SYR IVP (11:46)
[2023-02-25] MEDS: Proteinase Inhibitor 5 VIAL in EMPTY EVACUATED CONTAINER 1 EACH 33.333 VIAL IVPB (11:51)
[2023-03-04] MEDS: Proteinase Inhibitor 5 VIAL in EMPTY EVACUATED CONTAINER 1 EACH 400 VIAL IVPB (13:30)
[2023-03-04] MEDS: Normal Saline Flush 10 ML SYR IVP (13:30)
[2023-03-11] MEDS: Proteinase Inhibitor 5 VIAL in EMPTY EVACUATED CONTAINER 1 EACH 33.333 VIAL IVPB (11:47)
[2023-03-11] MEDS: Normal Saline Flush 10 ML SYR IVP (11:50)
== END 2023-03-17 23:59 | disposition home or self-care (01) ==
LOC: INF 00:23
PROVIDERS: PCP Family Medicine; Visit Provider Internal Medicine
DX: E88.01 Alpha-1-antitrypsin deficiency (principal)
CPT/HCPCS: 96374; J0257

== ENCOUNTER → 2023-04-04 14:52 | Outpatient (BNVA) | payer MEDICARE, SELFPAY | PROVIDERS: PCP Family Medicine; Referring Provider Family Medicine; Visit Provider Physician Assistant Surgical | DX: E88.01 Alpha-1-antitrypsin deficiency (principal); J43.1 Panlobular emphysema; J96.11 Chronic respiratory failure with hypoxia; J47.9 Bronchiectasis, uncomplicated; J84.10 Pulmonary fibrosis, unspecified; Q34.9 Congenital malformation of respiratory system, unspecified; G47.33 Obstructive sleep apnea (adult) (pediatric) | CPT/HCPCS: 99214 ==

== ENCOUNTER → 2023-04-08 01:05 | Outpatient (CLI) | payer MEDICARE, SELFPAY ==
--- NOTE | 2023-04-08 07:30 | DI.CT_ITS ---
Exam(s) CT CHEST WO EXAM: CT CHEST WO CLINICAL HISTORY: worsening symptoms,TRACHEAL CYST,COPD,Q34.9,J44.9. TECHNIQUE: Imaging protocol: Axial computed tomography images were obtained and coronal and sagittal reformatted images were created and reviewed. COMPARISON: CT CT ABDOMEN PELVIS W from 01/25/[address] CHEST PE CTA from 12/20/2022 FINDINGS: Tracheobronchial tree: Patent where visualized. There is bronchiectasis seen in the lower lobes bilat erally. There is mild mucous plugging seen peripherally in the lower lobes bilaterally. Pulmonary parenchyma: Moderate centrilobular emphysematous changes are present. Stable scarring is s een in the lungs. No focal infiltrates are seen. Mediastinum and Antonietta: No dominant adenopathy or fluid collection. The esophagus is unremarkable. Thyroid gland: Unremarkable. Pleura: No effusion or pneumothorax. Heart: The heart is not dilated. Coronary artery calcifications are present. No pericardial effusion . Aorta: Thoracic aorta non-dilated. Atherosclerosis. Upper abdomen: Unremarkable. Lymph nodes: Within normal limits. Soft tissues: Unremarkable. Bones:Within normal limits for the patient's age. IMPRESSION: 1. Bilateral lower lobe bronchiectasis with mucous plugging. 2. Moderate centrilobular emphysema. 3. No new focal infiltrates. RADIATION DOSE DELIVERED: Total DLP Total DLP DATA REPOSITORY: All CT scans at this facility are submitted to the National Radiology Data Registry (NRDR) Dose Index Registry (DIR) with the [employer] (ACR). RADIATION OPTIMIZATION: All CT scans at this facility use at least one of these dose optimization te chniques: automated exposure control; mA and/or kV adjustment per patient size (includes targeted exa ms where dose is matched to clinical indication); or iterative reconstruction.
== END ==
PROVIDERS: PCP Family Medicine; Visit Provider Physician Assistant Surgical
DX: J44.9 Chronic obstructive pulmonary disease, unspecified (principal); Q34.9 Congenital malformation of respiratory system, unspecified
CPT/HCPCS: 71250; 96365; J0256

== ENCOUNTER 2023-04-15 02:40 | Outpatient (RCR) | payer MEDICARE, SELFPAY ==
[2023-03-18] MEDS: Proteinase Inhibitor 5 VIAL in EMPTY EVACUATED CONTAINER 1 EACH 33.333 VIAL IVPB (11:43)
[2023-03-18] MEDS: Normal Saline Flush 10 ML SYR IVP (11:43)
[2023-03-25] MEDS: Proteinase Inhibitor 5 VIAL in EMPTY EVACUATED CONTAINER 1 EACH 33.333 VIAL IVPB (11:43)
[2023-03-25] MEDS: Normal Saline Flush 10 ML SYR IVP (11:43)
[2023-04-08] MEDS: Normal Saline Flush 10 ML SYR IVP ×2 (11:39→12:04)
[2023-04-08] MEDS: Proteinase Inhibitor 5 VIAL in EMPTY EVACUATED CONTAINER 1 EACH 33.333 VIAL IVPB (11:39)
[2023-04-15] MEDS: Proteinase Inhibitor 5 VIAL in EMPTY EVACUATED CONTAINER 1 EACH 33.333 VIAL IVPB (11:41)
[2023-04-15] MEDS: Normal Saline Flush 10 ML SYR IVP (11:41)
== END 2023-04-17 23:59 | disposition home or self-care (01) ==
LOC: INF 02:40
PROVIDERS: PCP Family Medicine; Visit Provider Internal Medicine
DX: E88.01 Alpha-1-antitrypsin deficiency (principal)
CPT/HCPCS: 96365; 96374; J0256; J0257

== ENCOUNTER → 2023-04-20 11:28 | Outpatient (BNVA) | payer MEDICARE, SELFPAY | PROVIDERS: PCP Family Medicine; Referring Provider Family Medicine; Visit Provider Student in an Organized Health Care Education/Training Program | DX: E88.01 Alpha-1-antitrypsin deficiency (principal); J43.1 Panlobular emphysema; J96.11 Chronic respiratory failure with hypoxia; J47.9 Bronchiectasis, uncomplicated; J84.10 Pulmonary fibrosis, unspecified; Q34.9 Congenital malformation of respiratory system, unspecified; G47.33 Obstructive sleep apnea (adult) (pediatric) | CPT/HCPCS: 99215 ==

== ENCOUNTER 2023-05-13 01:08 | Outpatient (RCR) | payer MEDICARE, SELFPAY ==
[2023-04-22] MEDS: Normal Saline Flush 10 ML SYR IVP (12:16)
[2023-04-22] MEDS: Proteinase Inhibitor 5 VIAL in EMPTY EVACUATED CONTAINER 1 EACH 400 VIAL IVPB (12:18)
[2023-04-22 12:41] LABS: HCT 45.6 % (36.0-46.0); HGB 15.5 g/dL (11.2-15.7); MCV 94 fL (80-95); MPV 11.2 fL (8.0-11.0); Platelet Count 293 10^3/uL (130-400); RBC 4.84 10^6/uL (3.93-5.22); WBC 8.35 10^3/uL (4.4-10.8)
[2023-04-22 13:12] LABS: Hemoglobin A1C 8.3 % (<5.7)
[2023-04-22 13:18] LABS: ALT 34 U/L (14-59); AST 21 U/L (15-37); Albumin 3.4 g/dL (3.4-5.0); Alkaline Phosphatase 132 U/L (46-116); Anion Gap 7.2 mmol/L (3-11); BUN 17 mg/dL (7-18); Bilirubin, Total 0.6 mg/dL (0.2-1.0); CO2 29.8 mmol/L (21.0-32.0); Calcium 9.6 mg/dL (8.5-10.1); Chloride 103 mmol/L (98-107); Estimated GFR 60.61 (mL/min/1.73m2); Glucose 153 mg/dL (74-106); Potassium 3.6 mmol/L (3.5-5.1); Sodium 140 mmol/L (136-145); TSH (W/Ref FT4) 0.23 uIU/mL (0.36-3.74); Total Protein 8.6 g/dL (6.4-8.2)
[2023-04-22 13:34] LABS: FREE T4 1.15 ng/dL (0.76-1.46)
[2023-04-29] MEDS: Normal Saline Flush 10 ML SYR IVP (11:55)
[2023-04-29] MEDS: Proteinase Inhibitor 5 VIAL in EMPTY EVACUATED CONTAINER 1 EACH 400 VIAL IVPB (11:55)
[2023-05-06] MEDS: Normal Saline Flush 10 ML SYR IVP (11:49)
[2023-05-06] MEDS: Proteinase Inhibitor 5 VIAL in EMPTY EVACUATED CONTAINER 1 EACH 33.333 VIAL IVPB (11:53)
[2023-05-13] MEDS: Proteinase Inhibitor 5 VIAL in EMPTY EVACUATED CONTAINER 1 EACH 400 VIAL IVPB (11:52)
[2023-05-13] MEDS: Normal Saline Flush 10 ML SYR IVP (11:52)
== END 2023-05-18 23:59 | disposition home or self-care (01) ==
LOC: INF 01:08
PROVIDERS: PCP Family Medicine; Visit Provider Internal Medicine
DX: E03.9 Hypothyroidism, unspecified (principal); E11.9 Type 2 diabetes mellitus without complications; E88.01 Alpha-1-antitrypsin deficiency
CPT/HCPCS: 36415; 80053; 85027; 96374; 83036; 84439; 84443; J0256

== ENCOUNTER 2023-06-10 00:55 | Outpatient (RCR) | payer MEDICARE, SELFPAY ==
[2023-05-20] MEDS: Normal Saline Flush 10 ML SYR IVP (11:34)
[2023-05-20] MEDS: Proteinase Inhibitor 5 VIAL in EMPTY EVACUATED CONTAINER 1 EACH 33.333 VIAL IVPB (11:34)
[2023-05-27] MEDS: Normal Saline Flush 10 ML SYR IVP (11:31)
[2023-05-27] MEDS: Proteinase Inhibitor 5 VIAL in EMPTY EVACUATED CONTAINER 1 EACH 33.333 VIAL IVPB (11:31)
[2023-06-03] MEDS: Proteinase Inhibitor 5 VIAL in EMPTY EVACUATED CONTAINER 1 EACH 33.333 VIAL IVPB (14:00)
[2023-06-03] MEDS: Normal Saline Flush 10 ML SYR IVP (14:15)
[2023-06-10] MEDS: Proteinase Inhibitor 5 VIAL in EMPTY EVACUATED CONTAINER 1 EACH 33.333 VIAL IVPB (11:47)
[2023-06-10] MEDS: Normal Saline Flush 10 ML SYR IVP (11:48)
== END 2023-06-16 23:59 | disposition home or self-care (01) ==
LOC: INF 00:55
PROVIDERS: PCP Family Medicine; Visit Provider Internal Medicine
DX: E88.01 Alpha-1-antitrypsin deficiency (principal)
CPT/HCPCS: 96365; 96374; J0256

== ENCOUNTER 2023-07-15 01:09 | Outpatient (RCR) | payer MEDICARE, SELFPAY ==
[2023-06-17] MEDS: Proteinase Inhibitor 5 VIAL in EMPTY EVACUATED CONTAINER 1 EACH 33.333 VIAL IVPB (12:05)
[2023-06-17] MEDS: Normal Saline Flush 10 ML SYR IVP (12:06)
[2023-06-24] MEDS: Normal Saline Flush 10 ML SYR IVP (11:46)
[2023-06-24] MEDS: Proteinase Inhibitor 5 VIAL in EMPTY EVACUATED CONTAINER 1 EACH 33.333 VIAL IVPB (11:46)
[2023-07-01] MEDS: Proteinase Inhibitor 5 VIAL in EMPTY EVACUATED CONTAINER 1 EACH 33.333 VIAL IVPB (11:31)
[2023-07-08] MEDS: Proteinase Inhibitor 5 VIAL in EMPTY EVACUATED CONTAINER 1 EACH 33.333 VIAL IVPB (11:45)
[2023-07-08] MEDS: Normal Saline Flush 10 ML SYR IVP (11:45)
[2023-07-15] MEDS: Normal Saline Flush 10 ML SYR IVP (12:02)
[2023-07-15] MEDS: Proteinase Inhibitor 5 VIAL in EMPTY EVACUATED CONTAINER 1 EACH 33.333 VIAL IVPB (12:02)
== END 2023-07-17 23:59 | disposition home or self-care (01) ==
LOC: INF 01:09
PROVIDERS: PCP Family Medicine; Visit Provider Internal Medicine
DX: E88.01 Alpha-1-antitrypsin deficiency (principal)
CPT/HCPCS: 96374; J0256

== ENCOUNTER 2023-08-12 00:42 | Outpatient (RCR) | payer MEDICARE, SELFPAY ==
[2023-07-22] MEDS: Normal Saline Flush 10 ML SYR IVP (12:27)
[2023-07-22] MEDS: Proteinase Inhibitor 5 VIAL in EMPTY EVACUATED CONTAINER 1 EACH 33.333 VIAL IVPB (12:27)
[2023-07-29] MEDS: Proteinase Inhibitor 5 VIAL in EMPTY EVACUATED CONTAINER 1 EACH 33.333 VIAL IVPB (11:28)
[2023-07-29] MEDS: Normal Saline Flush 10 ML SYR IVP (11:36)
[2023-08-05] MEDS: Normal Saline Flush 10 ML SYR IVP (12:18)
[2023-08-05] MEDS: Proteinase Inhibitor 5 VIAL in EMPTY EVACUATED CONTAINER 1 EACH 33.333 VIAL IVPB (12:18)
[2023-08-05 12:54] LABS: FREE T4 1.24 ng/dL (0.76-1.46)
[2023-08-12] MEDS: Proteinase Inhibitor 5 VIAL in EMPTY EVACUATED CONTAINER 1 EACH 33.333 VIAL IVPB (12:42)
[2023-08-12] MEDS: Normal Saline Flush 10 ML SYR IVP (12:43)
== END 2023-08-16 23:59 | disposition home or self-care (01) ==
LOC: INF 00:42
PROVIDERS: PCP Family Medicine; Visit Provider Internal Medicine
DX: E03.9 Hypothyroidism, unspecified (principal); E88.01 Alpha-1-antitrypsin deficiency; E11.9 Type 2 diabetes mellitus without complications
CPT/HCPCS: 36415; 96365; 96374; 84439; 84443; J0256

== ENCOUNTER → 2023-08-16 15:18 | Outpatient (BNVA) | payer MEDICARE, SELFPAY | PROVIDERS: PCP Family Medicine; Referring Provider Family Medicine; Visit Provider Student in an Organized Health Care Education/Training Program | DX: E88.01 Alpha-1-antitrypsin deficiency (principal); J43.1 Panlobular emphysema; J96.11 Chronic respiratory failure with hypoxia; J47.9 Bronchiectasis, uncomplicated; J84.10 Pulmonary fibrosis, unspecified; Q34.9 Congenital malformation of respiratory system, unspecified; G47.33 Obstructive sleep apnea (adult) (pediatric) | CPT/HCPCS: 99214 ==

== ENCOUNTER 2023-08-24 14:43 | Outpatient (REF) | payer MEDICARE, SELFPAY ==
[2023-08-24 21:00] LABS: Abs Immature Grans 0.03 10^3/uL (0.0-0.06); Absolute Basophil Count 0.05 10^3/uL (0.0-0.2); Absolute Eosinophil Count 0.28 10^3/uL (0.0-0.7); Absolute Lymphocyte Count 2.16 10^3/uL (1.2-3.4); Absolute Monocyte Count 1.47 10^3/uL (0.1-0.8); Basophils % 0.5 %; Eosinophils % 2.6 %; HCT 45.6 % (36.0-46.0); HGB 15.4 g/dL (11.2-15.7); Immature Grans % 0.3 %; MCH 32.5 pg (27.0-33.0); MCHC 33.8 % (32.0-36.0); MCV 96 fL (80-95); MPV 11.1 fL (8.0-11.0); Monocytes % 13.6 %; Platelet Count 287 10^3/uL (130-400); RBC 4.74 10^6/uL (3.93-5.22); RDW 12.2 % (11.7-14.6); RDW-SD 43.6 fL; WBC 10.82 10^3/uL (4.4-10.8)
[2023-08-24 21:10] LABS: ALT 37 U/L (14-59); AST 20 U/L (15-37); Albumin 3.5 g/dL (3.4-5.0); Alkaline Phosphatase 118 U/L (46-116); BUN 16 mg/dL (7-18); Bilirubin, Total 0.6 mg/dL (0.2-1.0); CREATININE 0.9 mg/dL (0.55-1.02); Calcium 9.4 mg/dL (8.5-10.1); Chloride 103 mmol/L (98-107); Estimated GFR 68.77 (mL/min/1.73m2); Glucose 147 mg/dL (74-106); Potassium 4.6 mmol/L (3.5-5.1); Sodium 141 mmol/L (136-145)
[2023-08-24 21:13] LABS: Absolute Neutrophil Count 6.82 10^3/uL (1.2-6.7)
== END 2023-08-24 14:44 | disposition home or self-care (01) ==
LOC: NCHCN 14:43
PROVIDERS: PCP Family Medicine; Visit Provider Family Medicine
DX: L08.9 Local infection of the skin and subcutaneous tissue, unspecified (principal)
CPT/HCPCS: 80053; 83036; 85025

== ENCOUNTER 2023-09-16 00:33 | Outpatient (RCR) | payer MEDICARE, SELFPAY ==
[2023-08-19] MEDS: Normal Saline Flush 10 ML SYR IVP (12:32)
[2023-08-19] MEDS: Proteinase Inhibitor 5 VIAL in EMPTY EVACUATED CONTAINER 1 EACH 33.333 VIAL IVPB (12:32)
[2023-08-26] MEDS: Proteinase Inhibitor 5 VIAL in EMPTY EVACUATED CONTAINER 1 EACH 33.333 VIAL IVPB (12:20)
[2023-08-26] MEDS: Normal Saline Flush 10 ML SYR IVP (12:20)
[2023-09-02] MEDS: Proteinase Inhibitor 5 VIAL in EMPTY EVACUATED CONTAINER 1 EACH 400 VIAL IVPB (12:28)
[2023-09-02] MEDS: Normal Saline Flush 10 ML SYR IVP (12:28)
[2023-09-09] MEDS: Proteinase Inhibitor 5 VIAL in EMPTY EVACUATED CONTAINER 1 EACH 400 VIAL IVPB (12:28)
[2023-09-09] MEDS: Normal Saline Flush 10 ML SYR IVP (12:28)
[2023-09-16] MEDS: Normal Saline Flush 10 ML SYR IVP (12:18)
[2023-09-16] MEDS: Proteinase Inhibitor 5 VIAL in EMPTY EVACUATED CONTAINER 1 EACH 400 VIAL IVPB (12:25)
== END 2023-09-16 23:59 | disposition home or self-care (01) ==
LOC: INF 00:33
PROVIDERS: PCP Family Medicine; Visit Provider Student in an Organized Health Care Education/Training Program
DX: E88.01 Alpha-1-antitrypsin deficiency (principal)
CPT/HCPCS: 96365; 96374; J0256

== ENCOUNTER 2023-10-14 01:07 | Outpatient (RCR) | payer MEDICARE, SELFPAY ==
[2023-09-23] MEDS: Normal Saline Flush 10 ML SYR IVP (12:39)
[2023-09-23] MEDS: Proteinase Inhibitor 5 VIAL in EMPTY EVACUATED CONTAINER 1 EACH 400 VIAL IVPB (12:39)
[2023-09-30] MEDS: Normal Saline Flush 10 ML SYR IVP (13:04)
[2023-09-30] MEDS: Proteinase Inhibitor 5 VIAL in EMPTY EVACUATED CONTAINER 1 EACH 33.333 VIAL IVPB (13:04)
[2023-10-07] MEDS: Proteinase Inhibitor 5 VIAL in EMPTY EVACUATED CONTAINER 1 EACH 33.333 VIAL IVPB (12:41)
[2023-10-07] MEDS: Normal Saline Flush 10 ML SYR IVP (12:41)
[2023-10-07 13:26] LABS: TSH (W/Ref FT4) 4.07 uIU/mL (0.36-3.74)
[2023-10-07 13:54] LABS: FREE T4 0.82 ng/dL (0.76-1.46)
[2023-10-14] MEDS: Proteinase Inhibitor 5 VIAL in EMPTY EVACUATED CONTAINER 1 EACH 33.333 VIAL IVPB (12:55)
[2023-10-14] MEDS: Normal Saline Flush 10 ML SYR IVP (12:56)
== END 2023-10-16 23:59 | disposition home or self-care (01) ==
LOC: INF 01:07
PROVIDERS: PCP Family Medicine; Visit Provider Student in an Organized Health Care Education/Training Program
DX: E03.9 Hypothyroidism, unspecified (principal); E88.01 Alpha-1-antitrypsin deficiency
CPT/HCPCS: 36415; 96374; 84439; 84443; J0256

== ENCOUNTER → 2023-11-03 19:35 | Outpatient (CLI) | payer MEDICARE, SELFPAY ==
--- NOTE | 2023-11-03 16:45 | DI.RAD_ITS ---
Exam(s) XR CLAVICLE RT XR SHOULDER RT COMPLETE 2+V XR HUMERUS RT EXAM: XR SHOULDER RT COMPLETE 2+V CLINICAL HISTORY: W19.XXXA fall shoulder pain. TECHNIQUE: 2D digital imaging was performed. Five views of the shoulder. Two views of the clavicle and humerus. COMPARISON: CR,XR XR SHOULDER LT COMPLETE 2+V from 06/20/2019 CR XR CLAVICLE RT from 11/03/2023 CR XR HUMERUS RT from 11/03/2023 FINDINGS: BONES: Comminuted but nondisplaced fracture of the humeral head. 2 screws are noted related to prior rotator cuff surgery. There are old right rib fractures but no visible acute rib fractures. Prior distal clavicular resection. JOINTS: No dislocation present. There is mild widening of the glenohumeral joint which could be seco ndary to a joint effusion. The elbow is unremarkable as visualized. SOFT TISSUE: Normal. IMPRESSION: Nondisplaced, mildly comminuted fracture of the humeral head. DATA REPOSITORY: RADIATION DOSE DELIVERED:
--- NOTE | 2023-11-03 16:45 | DI.RAD_ITS ---
Exam(s) XR RIBS RT W PA LAT CHEST CLINICAL HISTORY: W19.XXXA fall shoulder pain. COMPARISON: CT CT CHEST WO from 04/08/2023 TECHNIQUE:: PA and lateral views of the chest and 2 views of the right ribs were performed. FINDINGS: LUNGS:Minimal bilateral scarring. No infiltrate. No pleural abnormality seen. HEART: Normal. MEDIASTINUM: Normal. BONES: No acute displaced rib fracture is seen. There are old healed rib fractures. No bony destruc tive lesion is seen. Degenerative changes in the lower thoracic spine. OTHER FINDINGS: None. IMPRESSION: 1. Old right rib fractures. No evidence of acute rib fracture. 2. No acute pulmonary findings.
--- NOTE | 2023-11-03 17:54 | DI.VRAD_ITS ---
PROCEDURE INFORMATION: Exam: XR Right Shoulder Exam date and time: 11/03/2023 5:27 PM Age: 72 years old Clinical indication: Injury or trauma; Other: Fall shoulder pain TECHNIQUE: Imaging protocol: Radiologic exam of the right shoulder. Views: 2 or more views. COMPARISON: No relevant comparison films. FINDINGS: Bones/joints: Intra-articular fracture of the right humeral head. Surgical screws in the right humeral head. Widening of the glenohumeral joint consistent with joint effusion. Prior surgical resection of the distal right clavicle. Multiple age indeterminate right rib fractures. Lungs: Coarse increased interstitial markings in the right upper lobe. Soft tissues: Unremarkable. IMPRESSION: 1. Proximal right humeral fracture. 2. Additional findings as discussed above. Dictated and Authenticated by: Treasure Ardon MD. Ordering:JOCELYNN Flynn MD
--- NOTE | 2023-11-03 17:56 | DI.VRAD_ITS ---
PROCEDURE INFORMATION: Exam: XR Right Clavicle, Complete Exam date and time: 11/03/2023 5:24 PM Age: 72 years old Clinical indication: Injury or trauma; Other: Fall shoulder pain TECHNIQUE: Imaging protocol: Radiologic exam of the right clavicle. Complete exam. Views: Any number of views. COMPARISON: No relevant comparison study. FINDINGS: Bones/joints: Resection of the distal right clavicle. Proximal right humeral head fracture with intra-articular involvement. Surgical screws in the humeral head. Age indeterminate right rib fractures. Soft tissues: Unremarkable. IMPRESSION: 1. Intra-articular right humeral head fracture. 2. Postsurgical changes of the right clavicle. Dictated and Authenticated by: Treasure Ardon MD. Ordering:JOCELYNN Flynn MD
--- NOTE | 2023-11-03 17:57 | DI.VRAD_ITS ---
PROCEDURE INFORMATION: Exam: XR Right Humerus Exam date and time: 11/03/2023 5:37 PM Age: 72 years old Clinical indication: Injury or trauma; Other: Fall shoulder pain TECHNIQUE: Imaging protocol: Radiologic exam of the right humerus. Views: 2 or more views. COMPARISON: CR XR SHOULDER RT COMPLETE 2+V 03/11/2023 17:27 FINDINGS: Bones/joints: Comminuted intra-articular right proximal humeral head fracture with fracture fragments in near anatomic alignment. Surgical screws in the right humeral head. Prior resection of the distal right clavicle. Age indeterminate right rib fractures. Soft tissues: Unremarkable. IMPRESSION: Intra-articular right humeral head fracture. Dictated and Authenticated by: Treasure Ardon MD. Ordering:JOCELYNN Flynn MD
--- NOTE | 2023-11-03 18:03 | DI.VRAD_ITS ---
PROCEDURE INFORMATION: Exam: XR Right Ribs Exam date and time: 11/03/2023 5:18 PM Age: 72 years old Clinical indication: Injury or trauma; Fall; Other: Shoulder pain; Chest wall; Crushing TECHNIQUE: Imaging protocol: Radiologic exam of the right ribs. Views: 2 views. COMPARISON: CT CHEST WO 08/04/2023 12:35 FINDINGS: Limitations: The area of clinical concern was not marked. Bones/joints: Age indeterminate right lateral rib fractures. Multilevel degenerative changes of the spine. Lungs: Reticular markings at the lung base. Soft tissues: Unremarkable. IMPRESSION: Multiple age indeterminate right rib fractures. PROCEDURE INFORMATION: Exam: XR Chest Exam date and time: 11/03/2023 5:18 PM Age: 72 years old Clinical indication: Injury or trauma; Fall; Other: Shoulder pain; Chest wall; Crushing TECHNIQUE: Imaging protocol: Radiologic exam of the chest. Views: 2 views. COMPARISON: CT CHEST WO 08/04/2023 12:35 FINDINGS: Lungs: Mild reticular markings at the lung bases. No focal consolidation. Pleural spaces: Unremarkable. No pleural effusion. No pneumothorax. Heart/Mediastinum: Unremarkable. No cardiomegaly. Bones/joints: Right shoulder effusion with inferior displacement of the humerus. Resection of the distal right clavicle. Known right humeral head fracture. Multiple age indeterminate right rib fractures. Multilevel degenerative changes of the spine. Old mid left clavicular fracture. Degenerative changes of the lower thoracic spine. IMPRESSION: 1. Bibasilar reticular markings consistent with atelectasis or scar. 2. Multiple age indeterminate right lateral rib fractures. Dictated and Authenticated by: Treasure Ardon MD. Ordering:JOCELYNN Flynn MD
== END ==
PROVIDERS: PCP Family Medicine; Visit Provider Physician Assistant
DX: R07.81 Pleurodynia (principal); M25.511 Pain in right shoulder; S42.294A Other nondisplaced fracture of upper end of right humerus, initial encounter for closed fracture; W19.XXXA Unspecified fall, initial encounter; Z98.890 Other specified postprocedural states
CPT/HCPCS: 71046; 71100; 73000; 73030; 73060

== ENCOUNTER 2023-11-16 01:36 | Outpatient (RCR) | payer MEDICARE, SELFPAY ==
[2023-10-21] MEDS: Normal Saline Flush 10 ML SYR IVP (12:26)
[2023-10-21] MEDS: Proteinase Inhibitor 5 VIAL in EMPTY EVACUATED CONTAINER 1 EACH 33.333 VIAL IVPB (12:27)
[2023-11-11] MEDS: Normal Saline Flush 10 ML SYR IVP (12:16)
[2023-11-11] MEDS: Proteinase Inhibitor 5 VIAL in EMPTY EVACUATED CONTAINER 1 EACH 33.333 VIAL IVPB (12:17)
[2023-11-16] MEDS: Proteinase Inhibitor 5 VIAL in EMPTY EVACUATED CONTAINER 1 EACH 400 VIAL IVPB (13:29)
[2023-11-16] MEDS: Normal Saline Flush 10 ML SYR IVP (13:30)
== END 2023-11-16 23:59 | disposition home or self-care (01) ==
LOC: INF 01:36
PROVIDERS: PCP Family Medicine; Visit Provider Psychiatry & Neurology Neurology
DX: E88.01 Alpha-1-antitrypsin deficiency (principal)
CPT/HCPCS: 96374; J0256

== ENCOUNTER 2023-11-28 02:42 | Outpatient (CLI) | payer MEDICARE, SELFPAY ==
--- NOTE | 2023-11-28 12:49 | DI.RAD_ITS ---
Exam(s) XR SHOULDER RT COMPLETE 2+V EXAM: XR SHOULDER RT COMPLETE 2+V CLINICAL HISTORY: S/P HUMERAL HEAD FX,[id number]. TECHNIQUE: 2D digital imaging was performed of the right shoulder. Four images were obtained. AP, Grashey and Y views were obtained. COMPARISON: CR,XR XR SHOULDER RT COMPLETE 2+V from 11/03/2023 FINDINGS: BONES: There has been no change in alignment of the humeral head fracture. No bony destructive lesio n is seen. There are old healed rib fracture deformities. JOINTS: No dislocation present. Postsurgical changes are seen at the acromioclavicular joint. SOFT TISSUE: Normal. IMPRESSION: Stable alignment of the humeral head fracture. DATA REPOSITORY: RADIATION DOSE DELIVERED:
== END 2023-11-28 03:02 ==
LOC: DI 02:42
PROVIDERS: PCP Family Medicine; Visit Provider Orthopaedic Surgery
DX: M85.80 Other specified disorders of bone density and structure, unspecified site (principal); S42.251A Displaced fracture of greater tuberosity of right humerus, initial encounter for closed fracture
CPT/HCPCS: 73030

== ENCOUNTER 2023-12-16 01:01 | Outpatient (RCR) | payer MEDICARE, SELFPAY ==
[2023-11-25] MEDS: Proteinase Inhibitor 5 VIAL in EMPTY EVACUATED CONTAINER 1 EACH 400 VIAL IVPB (12:58)
[2023-11-25] MEDS: Normal Saline Flush 10 ML SYR IVP (12:58)
[2023-11-28 10:12] LABS: Alpha 1 Antitrypsin,Serum 62 mg/dL (90-200)
[2023-12-02] MEDS: Normal Saline Flush 10 ML SYR IVP (13:07)
[2023-12-02] MEDS: Proteinase Inhibitor 5 VIAL in EMPTY EVACUATED CONTAINER 1 EACH 33.333 VIAL IVPB (13:07)
[2023-12-09] MEDS: Normal Saline Flush 10 ML SYR IVP (12:55)
[2023-12-09] MEDS: Proteinase Inhibitor 5 VIAL in EMPTY EVACUATED CONTAINER 1 EACH 400 VIAL IVPB (12:55)
[2023-12-09 15:22] LABS: TSH (W/Ref FT4) 0.74 uIU/mL (0.36-3.74)
[2023-12-16] MEDS: Proteinase Inhibitor 5 VIAL in EMPTY EVACUATED CONTAINER 1 EACH 33.333 VIAL IVPB (12:59)
[2023-12-16] MEDS: Normal Saline Flush 10 ML SYR IVP (12:59)
== END 2023-12-17 23:59 | disposition home or self-care (01) ==
LOC: INF 01:01
PROVIDERS: Internal Medicine Critical Care Medicine; PCP Family Medicine; Visit Provider Psychiatry & Neurology Neurology
DX: E03.9 Hypothyroidism, unspecified (principal); E88.01 Alpha-1-antitrypsin deficiency
CPT/HCPCS: 36415; 96374; 82103; 84443; J0256

== ENCOUNTER 2024-01-12 03:09 | Outpatient (CLI) | payer MEDICARE, SELFPAY ==
[2024-01-12] MEDS: Inhaler, Assist Device 1 EACH MC (16:00)
[2024-01-12] MEDS: Levalbuterol HFA 15 GM INH 4 PUFF IH (16:01)
--- NOTE | 2024-01-17 16:27 | W.PFT ---
Date of service: 01/12/24 Time of Service: 13:06 Pulmonary Function Test Result Indications: COPD Interpretation Spirometry: There is moderate airflow limitation. There is a significant bronchodilator response. Lung Volumes: There is hyperinflation and air trapping. Diffusion Capacity: There is a decreased diffusion Airway Pressure: Normal airways resistance Impression Moderate airflow obstruction with air trapping, a bronchodilator response and decreased diffusion. Clinical Correlation therefore is recommended.
== END 2024-01-17 23:59 | disposition home or self-care (01) ==
LOC: RT 03:09
PROVIDERS: PCP Family Medicine; Visit Provider Internal Medicine Critical Care Medicine
DX: J44.9 Chronic obstructive pulmonary disease, unspecified (principal)
CPT/HCPCS: 94060; 94726; 94729; 96374; J0256

== ENCOUNTER 2024-01-13 01:33 | Outpatient (RCR) | payer MEDICARE, SELFPAY ==
[2023-12-23] MEDS: Normal Saline Flush 10 ML SYR IVP (12:58)
[2023-12-23] MEDS: Proteinase Inhibitor 5 VIAL in EMPTY EVACUATED CONTAINER 1 EACH 100 VIAL IVPB (12:58)
[2024-01-05] MEDS: Proteinase Inhibitor 5 VIAL in EMPTY EVACUATED CONTAINER 1 EACH 400 VIAL IVPB (11:38)
[2024-01-05] MEDS: Normal Saline Flush 10 ML SYR IVP (11:39)
[2024-01-13] MEDS: Proteinase Inhibitor 5 VIAL in EMPTY EVACUATED CONTAINER 1 EACH 100 VIAL IVPB (12:31)
[2024-01-13] MEDS: Normal Saline Flush 10 ML SYR IVP (12:32)
== END 2024-01-16 23:59 | disposition home or self-care (01) ==
LOC: INF 01:33
PROVIDERS: PCP Family Medicine; Visit Provider Psychiatry & Neurology Neurology
DX: E88.01 Alpha-1-antitrypsin deficiency (principal)
CPT/HCPCS: 96374; J0256

== ENCOUNTER 2024-02-10 00:39 | Outpatient (RCR) | payer MEDICARE, SELFPAY ==
[2024-01-20] MEDS: Proteinase Inhibitor 5 VIAL in EMPTY EVACUATED CONTAINER 1 EACH 400 VIAL IVPB (12:43)
[2024-01-20] MEDS: Normal Saline Flush 10 ML SYR IVP (12:44)
[2024-02-03] MEDS: Proteinase Inhibitor 5 VIAL in EMPTY EVACUATED CONTAINER 1 EACH 400 VIAL IVPB (12:44)
[2024-02-03] MEDS: Normal Saline Flush 10 ML SYR IVP (12:45)
[2024-02-10] MEDS: Proteinase Inhibitor 5 VIAL in EMPTY EVACUATED CONTAINER 1 EACH 100 VIAL IVPB (12:20)
[2024-02-10] MEDS: Normal Saline Flush 10 ML SYR IVP (12:26)
== END 2024-02-16 23:59 | disposition home or self-care (01) ==
LOC: INF 00:39
PROVIDERS: PCP Family Medicine; Visit Provider Psychiatry & Neurology Neurology
DX: E88.01 Alpha-1-antitrypsin deficiency
CPT/HCPCS: 96365; 96374; J0256

== ENCOUNTER 2024-03-16 01:04 | Outpatient (RCR) | payer MEDICARE, SELFPAY ==
[2024-02-17] MEDS: Proteinase Inhibitor 5 VIAL in EMPTY EVACUATED CONTAINER 1 EACH 100 VIAL IVPB (13:30)
[2024-02-17] MEDS: Normal Saline Flush 10 ML SYR IVP (13:37)
[2024-02-24] MEDS: Proteinase Inhibitor 5 VIAL in EMPTY EVACUATED CONTAINER 1 EACH 400 VIAL IVPB (12:59)
[2024-02-24] MEDS: Normal Saline Flush 10 ML SYR IVP (13:00)
[2024-03-02] MEDS: Proteinase Inhibitor 5 VIAL in EMPTY EVACUATED CONTAINER 1 EACH 100 VIAL IVPB (12:49)
[2024-03-02] MEDS: Normal Saline Flush 10 ML SYR IVP (12:49)
[2024-03-07] MEDS: Normal Saline Flush 10 ML SYR IVP (12:32)
[2024-03-07] MEDS: Proteinase Inhibitor 5 VIAL in EMPTY EVACUATED CONTAINER 1 EACH 100 VIAL IVPB (12:32)
[2024-03-16] MEDS: Proteinase Inhibitor 5 VIAL in EMPTY EVACUATED CONTAINER 1 EACH 100 VIAL IVPB (12:43)
[2024-03-16] MEDS: Normal Saline Flush 10 ML SYR IVP (12:47)
[2024-03-16 13:33] LABS: Hemoglobin A1C 9.4 % (<5.7); TSH (W/Ref FT4) 0.71 uIU/mL (0.36-3.74)
== END 2024-03-17 23:59 | disposition home or self-care (01) ==
LOC: INF 01:04
PROVIDERS: PCP Family Medicine; Visit Provider Psychiatry & Neurology Neurology
DX: E03.9 Hypothyroidism, unspecified (principal); E11.9 Type 2 diabetes mellitus without complications; E88.01 Alpha-1-antitrypsin deficiency
CPT/HCPCS: 36415; 96365; 96374; 83036; 84443; J0256

== ENCOUNTER 2024-03-28 01:45 | Outpatient (CLI) | payer MEDICARE, SELFPAY ==
--- NOTE | 2024-03-28 | DI.CT_ITS ---
Exam(s) CT NECK CHEST WO EXAM: CT NECK CHEST WO CLINICAL HISTORY: productive cough; pulmonary fibrosis, J84.10; diffuse/interstitial lung TECHNIQUE: Imaging Protocol: Axial computed tomography images with coronal and sagittal reformatted images were created and reviewed. Computer aided detection (CAD) was utilized. CONTRAST MATERIAL: Noncontrast COMPARISON: CT CT CHEST WO from 04/08/2023 CR,XR XR RIBS RT W PA LAT CHEST from 11/03/2023 FINDINGS: Neck: Parotids and submandibular glands: Normal. Thyroid: Both lobes appear diminutive. Lymphadenopathy: There are scattered lymph nodes seen along the level one to level three all measuri ng less than 8 mm in short axis diameter which are physiologic in nature. Soft tissues: The floor the mouth is unremarkable. The epiglottis and vocal cords are within normal limits. Bones: No fracture. No lytic or blastic lesions. Visualized portions of the brain and orbits are unremarkable. Chest: The exam is limited by respiratory motion, particularly at the lung bases. Tracheobronchial tree: Bilateral lower lobe mild bronchiectasis. No mucous plugging is visible howev er distal branches are not well evaluated due to motion. Mediastinum and [place]: No dominant adenopathy or fluid collection. Small hiatal hernia. Pulmonary parenchyma: No consolidation or dominant measurable mass. Moderate emphysematous changes. Stable area of scarring in the lateral left upper lobe. Mild areas of scarring in the right middle l obe and lingula. Pleura: No effusion or pneumothorax. Heart/Aorta: Thoracic aorta non-dilated. Minimal atherosclerotic changes. The heart is not dilated. Mild coronary artery calcifications are seen. Pulmonary arteries: Normal diameter. Bones: No fracture. No lytic or blastic lesions. Degenerative changes noted in the lower cervical r egion. Visualized upper abdomen: Enlarged liver with mild fatty infiltration. IMPRESSION: Stable moderate emphysematous changes. Stable mild bilateral lower lobe bronchiectasis. No significant abnormality in the neck. RADIATION DOSE DELIVERED: Total DLP DATA REPOSITORY: All CT scans at this facility are submitted to the National Radiology Data Registry (NRDR) Dose Index Registry (DIR) with the [employer] ([employer]). RADIATION OPTIMIZATION: All CT scans at this facility use at least one of these dose optimization te chniques: automated exposure control; mA and/or kV adjustment per patient size (includes targeted exa ms where dose is matched to clinical indication); or iterative reconstruction.
== END 2024-03-28 02:05 ==
LOC: DI 01:45
PROVIDERS: PCP Family Medicine; Visit Provider Student in an Organized Health Care Education/Training Program
DX: J84.10 Pulmonary fibrosis, unspecified (principal)
CPT/HCPCS: 71271; 96374; 70490; J0256

== ENCOUNTER 2024-04-13 01:08 | Outpatient (RCR) | payer MEDICARE, SELFPAY ==
[2024-03-28] MEDS: Proteinase Inhibitor 5 VIAL in EMPTY EVACUATED CONTAINER 1 EACH 100 VIAL IVPB (13:00)
[2024-03-28] MEDS: Normal Saline Flush 10 ML SYR IVP (13:00)
[2024-04-06 12:56] VITALS: BP 138/84; PULSE 77; RESP 22; TEMP 37.1; O2SAT 97
[2024-04-06] MEDS: Normal Saline Flush 10 ML SYR IVP (13:27)
[2024-04-13] MEDS: Normal Saline Flush 10 ML SYR IVP (12:43)
== END 2024-04-17 23:59 | disposition home or self-care (01) ==
LOC: INF 01:08
PROVIDERS: PCP Family Medicine; Visit Provider Psychiatry & Neurology Neurology
DX: E88.01 Alpha-1-antitrypsin deficiency (principal)
CPT/HCPCS: 36415; 96365; 96374; J0256

== ENCOUNTER 2024-05-18 00:30 | Outpatient (RCR) | payer MEDICARE, SELFPAY ==
[2024-04-18 00:26] VITALS: BP 138/84; PULSE 77; RESP 22; TEMP 37.1
[2024-04-20] MEDS: Normal Saline Flush 10 ML SYR IVP (13:18)
[2024-04-27] MEDS: Normal Saline Flush 10 ML SYR IVP (12:40)
[2024-05-04] MEDS: Proteinase Inhibitor 5 VIAL in EMPTY EVACUATED CONTAINER 1 EACH 100 VIAL IVPB (13:02)
[2024-05-04] MEDS: Normal Saline Flush 10 ML SYR IVP (13:02)
[2024-05-11] MEDS: Proteinase Inhibitor 5 VIAL in EMPTY EVACUATED CONTAINER 1 EACH 100 VIAL IVPB (12:52)
[2024-05-11] MEDS: Normal Saline Flush 10 ML SYR IVP (13:31)
[2024-05-18] MEDS: Proteinase Inhibitor 5 VIAL in EMPTY EVACUATED CONTAINER 1 EACH 100 VIAL IVPB (12:30)
[2024-05-18] MEDS: Normal Saline Flush 10 ML SYR IVP (13:03)
== END 2024-05-18 23:59 | disposition home or self-care (01) ==
LOC: INF 00:30
PROVIDERS: PCP Family Medicine; Visit Provider Psychiatry & Neurology Neurology
DX: E88.01 Alpha-1-antitrypsin deficiency (principal)
CPT/HCPCS: 36415; 96365; 96374; J0256

== ENCOUNTER 2024-06-08 00:28 | Outpatient (CLI) | payer MEDICARE, SELFPAY ==
--- NOTE | 2024-06-08 13:26 | DI.CT_ITS ---
Exam(s) CT CHEST WO EXAM: CT CHEST WO CLINICAL HISTORY: hx/o infected trachal cyst,PRODUCTIVE COUGH,FATIGUE. TECHNIQUE: Multi planar reconstructions were performed. CONTRAST MATERIAL: None COMPARISON: CT CT CHEST WO from 04/08/[address] NECK CHEST WO from 03/28/2024 FINDINGS: CHEST: LUNGS: The previously described scar-like density in the lateral aspect of the left upper lobe remain s unchanged. Scar-like densities lower down in the left lung also appear unchanged as are mild incre ased markings in the posterior and lateral basal segments of the left lower lobe. No pleural effusio ns. In the opposite-right lung there are multiple healed rib fractures as well as a nonunion fracture aga in noted in the anterolateral aspect of the right 1st rib with some focal pleural thickening at this level again noted. Previously described scar-like markings in the right middle lobe appear unchanged . Scar-like markings in the right lower lobe lateral basal and anterior basal segments also appear u nchanged. There are no pleural effusions. There are no significant focal findings in the trachea an d mainstem bronchi. No mucous plugging evident. MEDIASTINUM: There is no obvious hilar nor mediastinal adenopathy. There is no supraclavicular nor ax illary adenopathy. There is a calcified nodule in the right thyroid lobe again noted. The thyroid i s only partially included in the field of view. CARDIAC: Heart size is normal. There is no pericardial effusion.Caliber of the thoracic aorta is wit hin normal limits. VISUALIZED UPPER ABDOMEN:No adrenal masses. Small hiatal hernia again noted. Liver size appears kathleen ewhat prominent, similar to previous. There is no ascites. No splenomegaly. OSSEOUS: Evidence of prior right shoulder surgery. Healed right-sided rib fractures of the 4th, 5th, and 6 and 7th ribs noted. The 1st rib fracture is again nonunion.. No vertebral fractures.No signi ficant osseous lesions.. IMPRESSION: 1. Benign-appearing lung findings as above but with minimal if any significant change compared to pr ior CT scan of March 2024 2. No pleural effusions nor obvious intrathoracic adenopathy. 3. Healed rib fractures as above again noted RADIATION DOSE DELIVERED: 214.33mGy.cm Total DLP DATA REPOSITORY: All CT scans at this facility are submitted to the National Radiology Data Registry (NRDR) Dose Index Registry (DIR) with the [employer] (A[employer]). RADIATION OPTIMIZATION: All CT scans at this facility use at least one of these dose optimization te chniques: automated exposure control; mA and/or kV adjustment per patient size (includes targeted exa ms where dose is matched to clinical indication); or iterative reconstruction.
== END 2024-06-08 00:48 ==
PROVIDERS: PCP Family Medicine; Visit Provider Student in an Organized Health Care Education/Training Program
DX: J84.9 Interstitial pulmonary disease, unspecified (principal)
CPT/HCPCS: 71250; 96365; J0256

== ENCOUNTER → 2024-06-13 10:04 | Outpatient (BNVA) | payer MEDICARE, SELFPAY | PROVIDERS: PCP Family Medicine; Referring Provider Family Medicine; Visit Provider Podiatrist | DX: B35.3 Tinea pedis (principal); L60.0 Ingrowing nail; M79.672 Pain in left foot | CPT/HCPCS: 11750; 99214 ==

== ENCOUNTER 2024-06-15 01:41 | Outpatient (RCR) | payer MEDICARE, SELFPAY ==
[2024-06-08] MEDS: Proteinase Inhibitor 5 VIAL in EMPTY EVACUATED CONTAINER 1 EACH 100 VIAL IVPB (12:26)
[2024-06-08] MEDS: Normal Saline Flush 10 ML SYR IVP (12:27)
[2024-06-15] MEDS: Normal Saline Flush 10 ML SYR IVP (12:27)
[2024-06-15] MEDS: Proteinase Inhibitor 5 VIAL in EMPTY EVACUATED CONTAINER 1 EACH 100 VIAL IVPB (12:27)
[2024-06-15 12:56] LABS: Hemoglobin A1C 8.7 % (<5.7)
== END 2024-06-15 23:59 | disposition home or self-care (01) ==
LOC: INF 01:41
PROVIDERS: PCP Family Medicine; Visit Provider Psychiatry & Neurology Neurology
DX: E88.01 Alpha-1-antitrypsin deficiency (principal); E11.65 Type 2 diabetes mellitus with hyperglycemia
CPT/HCPCS: 36415; 96365; 96374; 83036; J0256

== ENCOUNTER 2024-07-13 03:24 | Outpatient (RCR) | payer MEDICARE, SELFPAY ==
[2024-06-22] MEDS: Normal Saline Flush 5 ML SYR IVP (12:50)
[2024-06-22] MEDS: Proteinase Inhibitor 5 VIAL in EMPTY EVACUATED CONTAINER 1 EACH 100 VIAL IVPB (12:50)
[2024-06-29] MEDS: Proteinase Inhibitor 5 VIAL in EMPTY EVACUATED CONTAINER 1 EACH 100 VIAL IVPB (12:43)
[2024-06-29] MEDS: Normal Saline Flush 5 ML SYR IVP (13:28)
[2024-07-06] MEDS: Normal Saline Flush 5 ML SYR IVP (12:38)
[2024-07-06] MEDS: Proteinase Inhibitor 5 VIAL in EMPTY EVACUATED CONTAINER 1 EACH 100 VIAL IVPB (12:44)
[2024-07-13] MEDS: Normal Saline Flush 5 ML SYR IVP (12:36)
[2024-07-13] MEDS: Proteinase Inhibitor 5 VIAL in EMPTY EVACUATED CONTAINER 1 EACH 100 VIAL IVPB (12:36)
== END 2024-07-16 23:59 | disposition home or self-care (01) ==
LOC: INF 03:24
PROVIDERS: PCP Family Medicine; Visit Provider Psychiatry & Neurology Neurology
DX: E11.65 Type 2 diabetes mellitus with hyperglycemia (principal); E88.01 Alpha-1-antitrypsin deficiency
CPT/HCPCS: 36415; 96365; 96374; J0256

== ENCOUNTER → 2024-07-18 13:39 | Outpatient (BNVA) | payer MEDICARE, SELFPAY | PROVIDERS: PCP Family Medicine; Referring Provider Family Medicine; Visit Provider Podiatrist | DX: B35.3 Tinea pedis (principal); L60.0 Ingrowing nail; M79.672 Pain in left foot | CPT/HCPCS: 11730 ==

== ENCOUNTER 2024-08-10 00:30 | Outpatient (RCR) | payer MEDICARE, SELFPAY ==
[2024-07-20] MEDS: Normal Saline Flush 5 ML SYR IVP (12:31)
[2024-07-20] MEDS: Proteinase Inhibitor 5 VIAL in EMPTY EVACUATED CONTAINER 1 EACH 100 VIAL IVPB (12:51)
[2024-07-27] MEDS: Normal Saline Flush 5 ML SYR IVP (12:25)
[2024-07-27] MEDS: Proteinase Inhibitor 5 VIAL in EMPTY EVACUATED CONTAINER 1 EACH 100 VIAL IVPB (12:25)
[2024-08-03] MEDS: Proteinase Inhibitor 5 VIAL in EMPTY EVACUATED CONTAINER 1 EACH 400 VIAL IVPB (12:41)
[2024-08-03] MEDS: Normal Saline Flush 5 ML SYR IVP (12:58)
[2024-08-10] MEDS: Proteinase Inhibitor 5 VIAL in EMPTY EVACUATED CONTAINER 1 EACH 100 VIAL IVPB (12:33)
[2024-08-10] MEDS: Normal Saline Flush 5 ML SYR IVP (12:33)
== END 2024-08-15 23:59 | disposition home or self-care (01) ==
LOC: INF 00:30
PROVIDERS: PCP Family Medicine; Visit Provider Psychiatry & Neurology Neurology
DX: E88.01 Alpha-1-antitrypsin deficiency (principal)
CPT/HCPCS: 96365; 96374; J0256

== ENCOUNTER 2024-09-14 00:42 | Outpatient (RCR) | payer MEDICARE, SELFPAY ==
[2024-08-17] MEDS: Proteinase Inhibitor 5 VIAL in EMPTY EVACUATED CONTAINER 1 EACH 100 VIAL IVPB (12:55)
[2024-08-17] MEDS: Normal Saline Flush 5 ML SYR IVP (12:55)
[2024-08-24] MEDS: Proteinase Inhibitor 5 VIAL in EMPTY EVACUATED CONTAINER 1 EACH 400 VIAL IVPB (13:05)
[2024-08-24] MEDS: Normal Saline Flush 10 ML SYR IVP (13:05)
[2024-08-31] MEDS: Normal Saline Flush 10 ML SYR IVP (12:22)
[2024-08-31] MEDS: Proteinase Inhibitor 5 VIAL in EMPTY EVACUATED CONTAINER 1 EACH 100 VIAL IVPB (12:22)
[2024-09-14] MEDS: Proteinase Inhibitor 5 VIAL in EMPTY EVACUATED CONTAINER 1 EACH 400 VIAL IVPB (12:20)
[2024-09-14] MEDS: Normal Saline Flush 10 ML SYR IVP (12:20)
== END 2024-09-15 23:59 | disposition home or self-care (01) ==
LOC: INF 00:42
PROVIDERS: PCP Family Medicine; Visit Provider Psychiatry & Neurology Neurology
DX: E88.01 Alpha-1-antitrypsin deficiency (principal)
CPT/HCPCS: 96374; J0256

== ENCOUNTER 2024-09-26 14:44 | Outpatient (REF) | payer MEDICARE, SELFPAY ==
[2024-09-26 15:12] LABS: COMMENT (LAB VIEW ONLY) 53.39 mg/dL; Microalb ug/mg Crea 67.4 ug/mg Cr
== END 2024-09-26 14:45 | disposition home or self-care (01) ==
LOC: NCHCN 14:44
PROVIDERS: PCP Family Medicine; Visit Provider Family Medicine
DX: E11.65 Type 2 diabetes mellitus with hyperglycemia (principal)
CPT/HCPCS: 82043; 82570

== ENCOUNTER 2024-10-05 01:22 | Outpatient (CLI) | payer MEDICARE, SELFPAY ==
[2024-10-05] MEDS: Inhaler, Assist Device 1 EACH MC (17:04)
[2024-10-05] MEDS: Levalbuterol HFA 15 GM INH 4 PUFF IH (17:04)
--- NOTE | 2024-10-21 09:43 | W.PFT ---
Date of service: 10/05/24 Time of Service: 15:01 Pulmonary Function Test Result Indications: COPD Interpretation Spirometry: There is moderate airflow limitation. No significant bronchodilator response. Lung Volumes: There is air trapping Diffusion Capacity: Reduced diffusion Airway Pressure: Normal airways resistance Impression Moderate airflow obstruction with air trapping and a reduced diffusion. Note: When compared to 01/12/24, FVC has improved, FEV1 and DLCO are stable. Clinical Correlation therefore is recommended.
== END 2024-10-05 01:23 | disposition home or self-care (01) ==
LOC: RT 01:22
PROVIDERS: PCP Family Medicine; Visit Provider Student in an Organized Health Care Education/Training Program
DX: E88.01 Alpha-1-antitrypsin deficiency (principal)
CPT/HCPCS: 94060; 94726; 94729; 96374; J0256

== ENCOUNTER 2024-10-12 00:35 | Outpatient (RCR) | payer MEDICARE, SELFPAY ==
[2024-09-21 12:40] LABS: Hemoglobin A1C 8.5 % (<5.7)
[2024-09-21] MEDS: Proteinase Inhibitor 5 VIAL in EMPTY EVACUATED CONTAINER 1 EACH 250 VIAL IVPB (12:48)
[2024-09-28] MEDS: Proteinase Inhibitor 5 VIAL in EMPTY EVACUATED CONTAINER 1 EACH 100 VIAL IVPB (12:45)
[2024-09-28] MEDS: Normal Saline Flush 10 ML SYR IVP (12:45)
[2024-10-05] MEDS: Proteinase Inhibitor 5 VIAL in EMPTY EVACUATED CONTAINER 1 EACH 106 VIAL IVPB (12:34)
[2024-10-05] MEDS: Normal Saline Flush 10 ML SYR IVP (12:38)
[2024-10-12 12:22] LABS: HCT 45.1 % (36.0-46.0); HGB 15.3 g/dL (11.2-15.7); MCH 32.1 pg (27.0-33.0); MCHC 33.9 % (32.0-36.0); MCV 95 fL (80-95); MPV 10.3 fL (8.0-11.0); Platelet Count 273 10^3/uL (130-400); RBC 4.77 10^6/uL (3.93-5.22); RDW 12.2 % (11.7-14.6); RDW-SD 42.5 fL
[2024-10-12] MEDS: Normal Saline Flush 10 ML SYR IVP (12:28)
[2024-10-12] MEDS: Proteinase Inhibitor 5 VIAL in EMPTY EVACUATED CONTAINER 1 EACH 400 VIAL IVPB (12:45)
[2024-10-12 12:49] LABS: FREE T4 1.06 ng/dL (0.76-1.46); TSH 0.57 uIU/mL (0.36-3.74)
== END 2024-10-15 23:59 | disposition home or self-care (01) ==
LOC: INF 00:35
PROVIDERS: PCP Family Medicine; Visit Provider Psychiatry & Neurology Neurology
DX: E88.01 Alpha-1-antitrypsin deficiency (principal); E11.65 Type 2 diabetes mellitus with hyperglycemia; Z00.00 Encounter for general adult medical examination without abnormal findings; Z45.2 Encounter for adjustment and management of vascular access device
CPT/HCPCS: 36415; 85027; 96365; 96374; 83036; 84439; 84443; J0256

== ENCOUNTER 2024-10-27 19:12 | Emergency (ER) | payer MEDICARE, SELFPAY ==
--- NOTE | 2024-10-27 19:15 | DI.RAD_ITS ---
Exam(s) XR HUMERUS RT XR SHOULDER RT COMPLETE 2+V EXAM: XR SHOULDER RT COMPLETE 2+V CLINICAL HISTORY: pain s/p fall. TECHNIQUE: 2D digital imaging was performed. Five views. COMPARISON: CR XR SHOULDER RT COMPLETE 2+V from 11/28/2023 CR,XR XR HUMERUS RT from 10/27/2024 FINDINGS: Exam is limited by overlying clothing. BONES: There is a comminuted fracture involving the proximal shaft of the humerus with some displacement and angulation. No bony destructive lesion is seen. Metallic anchors in the humeral head related to prior rotator cuff tear. Prior resection of the distal clavicle. Old right rib fractures. No fractures are seen distally in the humerus. JOINTS: No dislocation present. The elbow is not well visualized. SOFT TISSUE: Normal. IMPRESSION: Unremarkable radiographs of the right shoulder. The preliminary [facility] report was reviewed. DATA REPOSITORY: RADIATION DOSE DELIVERED:
[2024-10-27 19:19] VITALS: BP 155/78; PULSE 99; RESP 18; TEMP 36.6; O2SAT 96
--- NOTE | 2024-10-27 19:29 | W.ED.GENAD ---
Discharge Plan Disposition Patient Disposition: Home Condition: Stable Discharge Details Clinical Impression: Fracture, humerus Primary Care Provider: Tori Seay ED Provider: Damion Nix Home Meds and New Rx's Prescriptions: Continued garlic 2,000 mg capsule 2,000 mg PO TID vitamin B complex [Vitamins B Complex] Tablet 1 tab PO DAILY Patient Comments: patient states its super B complex hydrochlorothiazide 25 mg tablet 25 mg PO DAILY potassium 99 mg tablet See Rx Instructions .ROUTE DIRECTED Rx Instructions: as directed; Prolastin-C 1,000 mg (+/-)/20 mL solution See Rx Instructions IV .COMPLEX Rx Instructions: IV as directed; cholecalciferol (vitamin D3) 1,000 UNIT capsule 4,000 unit PO DAILY levothyroxine 75 MCG tablet 75 mcg PO DAILY Qty: 30 albuterol sulfate 2.5 mg /3 mL (0.083 %) solution for nebulization 2.5 mg inhalation QID PRN (Reason: shortness of breath or wheezing) Qty: 180 0RF albuterol sulfate [Ventolin HFA] 90 mcg/actuation HFA aerosol inhaler 2 puff inhalation Q6H PRN (Reason: bronchospasm) Qty: 8.5 12RF Stiolto Respimat 2.5-2.5 mcg/actuation mist 2 puff inhalation DAILY Qty: 4 12RF inositol 500 mg Tablet 500 mg PO DAILY alpha lipoic acid 200 mg Capsule 200 mg PO BID magnesium 250 mg Tablet 500 mg PO DAILY vitamin M53-cfyhs acid 1,000-400 mcg Tablet, Sublingual 1 tab SUBLINGUAL DAILY Discontinued Berberine See Rx Instructions .ROUTE DIRECTED Rx Instructions: as directed; horse chestnut 300 mg capsule 300 mg PO DAILY Discharge Instructions Additional Instructions: You have a proximal humerus fracture. Call orthopedics on Tuesday to arrange for follow-up appointment. If you feel more ill or have severe worsening pain return to the emergency department for reevaluation HPI General Mode of arrival: ambulatory. Date/Time Provider Initiated Documentation: 10/27/24 19:14. Limitations to Documentation: no limitations. Information obtained by: patient. History of Present Illness 73 year old F presents to the emergency department with the chief complaint of right shoulder pain s/p fall, described as moderate, Quality is described as aching, Rest improves symptom(s), Movement worsens symptoms . Patient notes no other symptoms.. Patient did receive the following treatments prior to arrival, none Related Data Home Medications ?Medication ?Instructions ?Recorded ?Confirmed cholecalciferol (vitamin D3) 25 4,000 unit PO DAILY 06/27/14 10/27/24 mcg (1,000 unit) capsule levothyroxine 75 mcg tablet 75 mcg PO DAILY #30 tab-caps 12/19/14 10/27/24 magnesium 250 mg tablet 500 mg PO DAILY 01/25/20 10/27/24 vitamin B12 1,000 mcg-folic acid 1 tab sublingual DAILY 01/25/20 10/27/24 400 mcg sublingual tablet alpha-1 proteinase inhib.(hum) See Rx Instructions IV .COMPLEX 11/14/20 10/27/24 1,000 mg (+/-)/20 mL IV solution (Prolastin-C) potassium 99 mg tablet See Rx Instructions .Route 11/14/20 10/27/24 DIRECTED alpha lipoic acid 200 mg capsule 200 mg PO BID 01/16/21 10/27/24 inositol 500 mg tablet 500 mg PO DAILY 01/16/21 10/27/24 garlic 2,000 mg capsule 2,000 mg PO TID 06/09/21 10/27/24 vitamin B complex (Vitamins B 1 tab PO DAILY 04/04/23 10/27/24 Complex tablet) albuterol sulfate 2.5 mg/3 mL 2.5 mg (3 mL) inhalation QID PRN 04/05/23 10/27/24 (0.083 %) solution for nebulization shortness of breath or wheezing #180 mL albuterol sulfate 90 mcg/actuation 2 puff inhalation Q6H PRN 05/19/23 10/27/24 aerosol inhaler (Ventolin HFA) bronchospasm #8.5 grams tiotropium 2.5 mcg-olodaterol 2.5 2 puff inhalation DAILY #4 grams 10/12/23 10/27/24 mcg/actuation mist for inhalation (Stiolto Respimat) hydrochlorothiazide 25 mg tablet 25 mg PO DAILY 05/14/24 10/27/24 Previous Rx's ?Medication ?Instructions ?Recorded albuterol sulfate 2.5 mg/3 mL 2.5 mg (3 mL) inhalation QID PRN 04/05/23 (0.083 %) solution for nebulization shortness of breath or wheezing #180 mL albuterol sulfate 90 mcg/actuation 2 puff inhalation Q6H PRN 05/19/23 aerosol inhaler (Ventolin HFA) bronchospasm #8.5 grams tiotropium 2.5 mcg-olodaterol 2.5 2 puff inhalation DAILY #4 grams 10/12/23 mcg/actuation mist for inhalation (Stiolto Respimat) Allergies Allergy/AdvReac Type Severity Reaction Status Date / Time meperidine HCl (From Demerol) AdvReac Intermediate agitated Verified 10/27/24 20:48 and ugly tetracycline AdvReac Intermediate upsets Verified 10/27/24 20:48 stomach amitriptyline AdvReac Mild adverse Verified 10/27/24 20:48 effect lisinopril AdvReac Mild cough Verified 10/27/24 20:48 Pneumococcal Vaccination AdvReac Unknown itching,restless Uncoded 10/27/24 20:48 legs General Stated Complaint: Fall/Non TraumaCriteria IGGY: 3 Review of Systems All systems reviewed & are unremarkable except as noted in HPI and below Constitutional Constitutional: Denies chills, Denies fever(s) and Denies weakness Cardiovascular Cardiovascular: Denies chest pain and Denies dyspnea Respiratory Respiratory: Denies cough and Denies dyspnea Gastrointestinal Gastrointestinal: Denies abdominal pain, Denies nausea and Denies vomiting Neurologic Neurologic: Denies weakness Psychiatric Psychiatric: Denies depression Exam Const General: no acute distress Orientation: alert [facility] Head: normal to inspection Ears: external ears normal General nose exam: external nose normal Mouth: moist mucous membranes Eyes General: appearance normal, both eyes and all related structures Neck Neck: normal visual inspection and nontender Resp Effort & Inspection: normal respiratory effort and able to speak in complete sentences Cardio Rate: regular rate Skin General skin exam: no rashes or lesions noted Neuro General: patient alert and patient oriented x3 Extrem General: capillary refill normal Right upper extremity: normal capillary refill; no cyanosis and no edema Psych Mental Status: mental status grossly normal Course Vital Signs Vital signs: Vital Signs Temperature 36.6 C 10/27/24 19:19 Pulse 99 H 10/27/24 19:19 Respiratory Rate 18 10/27/24 19:19 Blood Pressure 155/78 H 10/27/24 19:19 Pulse Oximetry 96 10/27/24 19:19 Temperature 36.6 C 10/27/24 19:19 Temperature Source Oral 10/27/24 19:19 Pulse 99 H 10/27/24 19:19 Respiratory Rate 18 10/27/24 19:19 Blood Pressure 155/78 H 10/27/24 19:19 Pulse Oximetry 96 10/27/24 19:19 Oxygen Delivery Method Nasal Cannula 10/27/24 19:19 Oxygen Flow Rate 2 10/27/24 19:19 Pain Level 8 10/27/24 19:19 Medical Decision Making 73-year-old female with a history of COPD, alpha-1 antitrypsin deficiency, states she is on home oxygen, who comes in with right shoulder pain. She states she was outside in her yard pulling on a lawn cart when she tripped and fell landing on her right shoulder. She did not hit her head or have loss of consciousness. She denies any headache, vomiting, neck pain, back pain, chest or abdomen pain. She localizes the pain to the right lateral shoulder and right mid humerus. She has full range of motion of the elbow and intact distal sensation pulses arm. She has no tenderness in the forearm, wrist or hand. She has limited range of motion of the shoulder. She has no C-spine, T-spine or L-spine tenderness. I suspect proximal humerus fracture, will obtain x-rays and reassess Patient has a humerus fracture on my read. She is stable. She still has full range of motion of her wrist and no tenderness elsewhere in the arm, no findings on exam to suggest a neurovascular injury. The turnaround times are over 100 minutes for virtual radiology reads. I advised the patient of this and she does not want to stay with formal reads. I will call her if they see anything else besides the fracture. 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 COPD (chronic obstructive pulmonary disease) Surgical History History of cataract surgery TKA (03/27/10) RIGHT Rotator Cuff Repair (09/22/07) RIGHT RIGHT ANKLE AND KNEE SURGERY (10/16/95) Open Carpal Tunnel release (~12/1999) LEFT LATERAL EPICONDYLE SURGERY (04/30/03) Abdominal hysterectomy (~1985) LINDA/BSO Endoscopy (12/22/04) CYSTECTOMY (~01/2004) L BR CYST REMOVED Appendectomy (~1968) Family History Mother COPD (chronic obstructive pulmonary disease) Multiple sclerosis Father Essential hypertension CAD (coronary artery disease) Alzheimer disease Grandfather Diabetes Personal history of malignant neoplasm PROSTATE Mental disorder DEMENTIA Grandfather Essential hypertension Heart disease Grandmother Essential hypertension Stroke Multiple sclerosis Emphysema lung Social History Smoking/Tobacco Use Status: Former Tobacco Use tobacco type: cigarettes Quit Date: 04/18/01 Tobacco: How many years used: 30 Smoking risk assessment performed?: Yes Alcohol Intake: current Alcohol Intake frequency: holidays/special occasions only Alcohol type: beer Drug use: Never Substance use type: does not use Do you feel safe at home: Yes Do you feel safe in your relationship?: Yes
[2024-10-27] MEDS: Acetaminophen 500 MG TAB 1000 MG PO (20:01)
[2024-10-27 21:10] VITALS: BP 125/64; PULSE 77; RESP 15; O2SAT 92
--- NOTE | 2024-10-27 21:43 | DI.VRAD_ITS ---
PROCEDURE INFORMATION: Exam: XR Right Shoulder Exam date and time: 10/27/2024 7:40 PM Age: 73 years old Clinical indication: Injury or trauma; Blunt trauma (contusions or hematomas); Shoulder and arm, upper; Right; Pain S/P fall TECHNIQUE: Imaging protocol: Radiologic exam of the right shoulder. Views: 2 or more views. COMPARISON: CR XR SHOULDER RT COMPLETE 2+V 11/28/2023 12:38 PM FINDINGS: Bones/joints: Comminuted fracture identified involving the proximal humerus. Soft tissues: Normal. IMPRESSION: Comminuted fracture involving the proximal humerus. Dictated and Authenticated by: Gustabo Rodrigues MD. Orderin Boyd Bruno MD
--- NOTE | 2024-10-27 21:43 | DI.VRAD_ITS ---
PROCEDURE INFORMATION: Exam: XR Right Humerus Exam date and time: 10/27/2024 7:46 PM Age: 73 years old Clinical indication: Upper arm; Right; Pain S/P fall TECHNIQUE: Imaging protocol: Radiologic exam of the right humerus. Views: 2 or more views. COMPARISON: CR XR HUMERUS RT 11/03/2023 5:37 PM FINDINGS: Bones/joints: Comminuted fracture identified involving the proximal humerus. Soft tissues: Normal. IMPRESSION: Comminuted fracture involving the proximal humerus. Dictated and Authenticated by: Gustabo Rodrigues MD. Orderin Boyd Bruno MD
--- NOTE | 2024-10-30 09:48 | NUR.NOTE ---
Access chart to print demographic sheet for [facility] billing requisition. Nursing Note:
== END 2024-10-27 21:10 | disposition home or self-care (01) ==
PROVIDERS: Emergency Provider Emergency Medicine; PCP Family Medicine
DX: S42.301A Unspecified fracture of shaft of humerus, right arm, initial encounter for closed fracture (principal); W01.0XXA Fall on same level from slipping, tripping and stumbling without subsequent striking against object, initial encounter
CPT/HCPCS: 99284; 99283; 73030; 73060

== ENCOUNTER 2024-11-09 00:30 | Outpatient (RCR) | payer MEDICARE, SELFPAY ==
[2024-10-18] MEDS: Normal Saline Flush 10 ML SYR IVP (12:26)
[2024-10-18] MEDS: Proteinase Inhibitor 5 VIAL in EMPTY EVACUATED CONTAINER 1 EACH 100 VIAL IVPB (12:26)
== END 2024-11-15 23:59 | disposition home or self-care (01) ==
LOC: INF 00:30
PROVIDERS: PCP Family Medicine; Visit Provider Psychiatry & Neurology Neurology
DX: E88.01 Alpha-1-antitrypsin deficiency (principal)
CPT/HCPCS: 96374; J0256

== ENCOUNTER 2024-11-16 01:59 | Outpatient (CLI) | payer MEDICARE, SELFPAY ==
[2024-11-16] MEDS: Proteinase Inhibitor 5 VIAL in EMPTY EVACUATED CONTAINER 1 EACH 999 VIAL IVPB (12:33)
== END 2024-11-16 02:00 | disposition home or self-care (01) ==
LOC: INF 01:59
PROVIDERS: PCP Family Medicine; Visit Provider Student in an Organized Health Care Education/Training Program
DX: E88.01 Alpha-1-antitrypsin deficiency (principal)
CPT/HCPCS: 96374; J0256

== ENCOUNTER 2024-11-23 00:58 | Outpatient (CLI) | payer MEDICARE, SELFPAY ==
[2024-11-23] MEDS: Proteinase Inhibitor 5 VIAL in EMPTY EVACUATED CONTAINER 1 EACH 200 VIAL IVPB (12:00)
[2024-11-23] MEDS: Normal Saline Flush 10 ML SYR IVP (12:54)
== END 2024-11-23 00:59 | disposition home or self-care (01) ==
LOC: INF 00:58
PROVIDERS: PCP Family Medicine; Visit Provider Student in an Organized Health Care Education/Training Program
DX: E88.01 Alpha-1-antitrypsin deficiency (principal)
CPT/HCPCS: 96365; J0256

== ENCOUNTER 2024-11-30 00:31 | Outpatient (CLI) | payer MEDICARE, SELFPAY ==
[2024-11-30] MEDS: Proteinase Inhibitor 5 VIAL in EMPTY EVACUATED CONTAINER 1 EACH 400 VIAL IVPB (11:20)
[2024-11-30] MEDS: Normal Saline Flush 10 ML SYR IVP (11:20)
== END 2024-11-30 00:32 | disposition home or self-care (01) ==
LOC: INF 00:32
PROVIDERS: PCP Family Medicine; Visit Provider Student in an Organized Health Care Education/Training Program
DX: E88.01 Alpha-1-antitrypsin deficiency (principal)
CPT/HCPCS: J0256

== ENCOUNTER 2024-12-07 00:10 | Outpatient (CLI) | payer MEDICARE, SELFPAY ==
[2024-12-07] MEDS: Normal Saline Flush 10 ML SYR IVP (12:27)
[2024-12-07] MEDS: Proteinase Inhibitor 5 VIAL in EMPTY EVACUATED CONTAINER 1 EACH 400 VIAL IVPB (12:27)
== END 2024-12-07 00:11 | disposition home or self-care (01) ==
LOC: INF 00:11
PROVIDERS: PCP Family Medicine; Visit Provider Student in an Organized Health Care Education/Training Program
DX: E88.01 Alpha-1-antitrypsin deficiency (principal)
CPT/HCPCS: 96374; J0256

== ENCOUNTER 2024-12-14 00:58 | Outpatient (CLI) | payer MEDICARE, SELFPAY ==
[2024-12-14] MEDS: Proteinase Inhibitor 5 VIAL in EMPTY EVACUATED CONTAINER 1 EACH 400 VIAL IVPB (12:38)
[2024-12-14] MEDS: Normal Saline Flush 10 ML SYR IVP (12:38)
[2024-12-17 10:01] LABS: Alpha 1 Antitrypsin,Serum 59 mg/dL (90-200)
== END 2024-12-14 00:59 | disposition home or self-care (01) ==
LOC: INF 00:59
PROVIDERS: PCP Family Medicine; Visit Provider Family Medicine
DX: E88.01 Alpha-1-antitrypsin deficiency (principal)
CPT/HCPCS: 36415; 96374; 82103; J0256

== ENCOUNTER 2024-12-21 05:20 | Outpatient (CLI) | payer MEDICARE, SELFPAY ==
[2024-12-21] MEDS: Proteinase Inhibitor 5 VIAL in EMPTY EVACUATED CONTAINER 1 EACH 400 VIAL IVPB (12:51)
[2024-12-21] MEDS: Normal Saline Flush 10 ML SYR IVP (12:51)
[2024-12-21 13:03] LABS: Hemoglobin A1C 8.0 % (<5.7)
== END 2024-12-21 05:21 | disposition home or self-care (01) ==
PROVIDERS: PCP Family Medicine; Visit Provider Family Medicine
DX: E88.01 Alpha-1-antitrypsin deficiency (principal); Z13.1 Encounter for screening for diabetes mellitus
CPT/HCPCS: 36415; 96374; 83036; J0256

== ENCOUNTER 2024-12-27 03:54 | Outpatient (CLI) | payer MEDICARE, SELFPAY ==
[2024-12-27] MEDS: Proteinase Inhibitor 5 VIAL in EMPTY EVACUATED CONTAINER 1 EACH 400 VIAL IVPB (12:36)
[2024-12-27] MEDS: Normal Saline Flush 10 ML SYR IVP (12:37)
== END 2024-12-27 03:55 | disposition home or self-care (01) ==
LOC: INF 03:54
PROVIDERS: PCP Family Medicine; Visit Provider Student in an Organized Health Care Education/Training Program
DX: E88.01 Alpha-1-antitrypsin deficiency (principal)
CPT/HCPCS: 96374; J0256

== ENCOUNTER 2025-01-11 00:21 | Outpatient (CLI) | payer MEDICARE, SELFPAY ==
[2025-01-11] MEDS: Normal Saline Flush 10 ML SYR IVP (12:30)
[2025-01-11] MEDS: Proteinase Inhibitor 5 VIAL in EMPTY EVACUATED CONTAINER 1 EACH 100 VIAL IVPB (12:30)
== END 2025-01-11 00:22 | disposition home or self-care (01) ==
LOC: INF 00:22
PROVIDERS: PCP Family Medicine; Visit Provider Family Medicine
DX: E88.01 Alpha-1-antitrypsin deficiency (principal)
CPT/HCPCS: 96374; J0256

== ENCOUNTER 2025-01-18 00:17 | Outpatient (CLI) | payer MEDICARE, SELFPAY ==
[2025-01-18] MEDS: Proteinase Inhibitor 5 VIAL in EMPTY EVACUATED CONTAINER 1 EACH 400 VIAL IVPB (12:18)
[2025-01-18] MEDS: Normal Saline Flush 10 ML SYR IVP (12:19)
== END 2025-01-18 00:18 | disposition home or self-care (01) ==
LOC: INF 00:18
PROVIDERS: PCP Family Medicine; Visit Provider Family Medicine
DX: E88.01 Alpha-1-antitrypsin deficiency (principal)
CPT/HCPCS: 96374; J0256

== ENCOUNTER 2025-01-25 00:38 | Outpatient (CLI) | payer MEDICARE, SELFPAY ==
[2025-01-25] MEDS: Normal Saline Flush 10 ML SYR IVP (12:31)
[2025-01-25] MEDS: Proteinase Inhibitor 5 VIAL in EMPTY EVACUATED CONTAINER 1 EACH 400 VIAL IVPB (12:31)
== END 2025-01-25 00:39 | disposition home or self-care (01) ==
LOC: INF 00:38
PROVIDERS: PCP Family Medicine; Visit Provider Family Medicine
DX: E88.01 Alpha-1-antitrypsin deficiency (principal)
CPT/HCPCS: 96374; J0256

== ENCOUNTER 2025-02-01 00:08 | Outpatient (CLI) | payer MEDICARE, SELFPAY ==
[2025-02-01] MEDS: Proteinase Inhibitor 5 VIAL in EMPTY EVACUATED CONTAINER 1 EACH 400 VIAL IVPB (12:37)
[2025-02-01] MEDS: Normal Saline Flush 10 ML SYR IVP (12:38)
== END 2025-02-01 00:09 | disposition home or self-care (01) ==
LOC: INF 00:08
PROVIDERS: PCP Family Medicine; Visit Provider Family Medicine
DX: E88.01 Alpha-1-antitrypsin deficiency (principal)
CPT/HCPCS: 96374; J0256

== ENCOUNTER 2025-02-08 00:04 | Outpatient (CLI) | payer MEDICARE, SELFPAY ==
[2025-02-08] MEDS: Proteinase Inhibitor 5 VIAL in EMPTY EVACUATED CONTAINER 1 EACH 400 VIAL IVPB (12:36)
[2025-02-08] MEDS: Normal Saline Flush 10 ML SYR IVP (12:37)
== END 2025-02-08 00:05 | disposition home or self-care (01) ==
LOC: INF 00:04
PROVIDERS: PCP Family Medicine; Visit Provider Orthopaedic Surgery
DX: E88.01 Alpha-1-antitrypsin deficiency (principal)
CPT/HCPCS: 96374; J0256

== ENCOUNTER 2025-02-08 03:07 | Outpatient (CLI) | payer MEDICARE, SELFPAY ==
--- NOTE | 2025-02-08 | DI.MAMMO_ITS ---
Exam(s) MAMMO SCREENING EXAM: MAMMO SCREENING CLINICAL HISTORY: SCREENING, Z12.31 TECHNIQUE: Mammograms were interpreted according to the usual protocol including computer analysis with CAD system, tomosynthesis and C-view imaging. COMPARISON: 2015 through 2022 FINDINGS: The breasts are composed of scattered fibroglandular densities, Breast Density category B. No suspicious masses or suspicious microcalcifications are seen. No skin thickening or abnormal axillary lymph nodes are seen. There has been no significant change from prior exams. IMPRESSION: BI-RADS Category 1, Negative mammogram Yearly screening mammography is recommended. Breast Density - Category B - There are scattered areas of fibroglandular density. Breast density Category C or D implies that the patient has dense breast tissue. Dense breast tissue can make it harder to find cancer on a mammogram. Dense breast tissue is also associated with an increased risk of breast cancer. This information about the result of the mammogram report was provided to the patient to raise their awareness. Use this report when you speak with the patient about their risks for breast cancer, which includes their family history. At that time, you may recommend additional screening tests (Ultrasound or MRI) as these tests may add significant information. A negative radiographic report should not delay biopsy if a dominant or clinically suspicious mass is present. Up to ten percent of cancers are not identified on mammography. A negative report may reinforce clinical impression. Adenosis and dense breasts may obscure an underlying neoplasm. False positive reports average 6 to 10%. Patient will receive a letter notifying them of these results.
== END 2025-02-08 03:27 ==
LOC: DI 03:07
PROVIDERS: PCP Family Medicine; Visit Provider Family Medicine
DX: Z12.31 Encounter for screening mammogram for malignant neoplasm of breast (principal); R92.323 Mammographic fibroglandular density, bilateral breasts
CPT/HCPCS: 77063; 77067; 96374; J0256

== ENCOUNTER 2025-02-22 00:50 | Outpatient (CLI) | payer MEDICARE, SELFPAY ==
[2025-02-22] MEDS: Proteinase Inhibitor 5 VIAL in EMPTY EVACUATED CONTAINER 1 EACH 400 VIAL IVPB (12:35)
[2025-02-22] MEDS: Normal Saline Flush 10 ML SYR IVP (12:35)
== END 2025-02-22 00:51 | disposition home or self-care (01) ==
LOC: INF 00:50
PROVIDERS: PCP Family Medicine; Visit Provider Family Medicine
DX: E88.01 Alpha-1-antitrypsin deficiency (principal)
CPT/HCPCS: 96374; J0256

== ENCOUNTER 2025-03-01 00:08 | Outpatient (CLI) | payer MEDICARE, SELFPAY ==
[2025-03-01] MEDS: Proteinase Inhibitor 5 VIAL in EMPTY EVACUATED CONTAINER 1 EACH 400 VIAL IVPB (12:29)
[2025-03-01] MEDS: Normal Saline Flush 10 ML SYR IVP (12:30)
== END 2025-03-01 00:09 | disposition home or self-care (01) ==
LOC: INF 00:08
PROVIDERS: PCP Family Medicine; Visit Provider Family Medicine
DX: E88.01 Alpha-1-antitrypsin deficiency (principal)
CPT/HCPCS: 96374; J0256

== ENCOUNTER 2025-03-08 00:12 | Outpatient (CLI) | payer MEDICARE, SELFPAY ==
[2025-03-08] MEDS: Proteinase Inhibitor 5 VIAL in EMPTY EVACUATED CONTAINER 1 EACH 400 VIAL IVPB (13:16)
[2025-03-08] MEDS: Normal Saline Flush 10 ML SYR IVP (13:16)
== END 2025-03-08 00:13 | disposition home or self-care (01) ==
LOC: INF 00:12
PROVIDERS: PCP Family Medicine; Visit Provider Family Medicine
DX: E88.01 Alpha-1-antitrypsin deficiency (principal)
CPT/HCPCS: 96374; J0256

== ENCOUNTER 2025-03-22 00:51 | Outpatient (CLI) | payer MEDICARE, SELFPAY ==
[2025-03-22] MEDS: Proteinase Inhibitor 5 VIAL in EMPTY EVACUATED CONTAINER 1 EACH 100 VIAL IVPB (13:14)
[2025-03-22] MEDS: Normal Saline Flush 10 ML SYR IVP (13:14)
[2025-03-22 14:49] LABS: Hemoglobin A1C 7.4 % (<5.7)
== END 2025-03-22 00:52 | disposition home or self-care (01) ==
LOC: INF 00:51
PROVIDERS: PCP Family Medicine; Visit Provider Student in an Organized Health Care Education/Training Program
DX: E88.01 Alpha-1-antitrypsin deficiency (principal); E11.65 Type 2 diabetes mellitus with hyperglycemia
CPT/HCPCS: 36415; 96374; 83036; J0256

== ENCOUNTER 2025-03-27 00:28 | Outpatient (CLI) | payer MEDICARE, SELFPAY ==
[2025-03-27] MEDS: Normal Saline Flush 10 ML SYR IVP (12:42)
[2025-03-27] MEDS: Proteinase Inhibitor 5 VIAL in EMPTY EVACUATED CONTAINER 1 EACH 400 VIAL IVPB (12:42)
== END 2025-03-27 00:29 | disposition home or self-care (01) ==
LOC: INF 00:28
PROVIDERS: PCP Family Medicine; Visit Provider Student in an Organized Health Care Education/Training Program
DX: E88.01 Alpha-1-antitrypsin deficiency (principal)
CPT/HCPCS: 96374; J0256

== ENCOUNTER 2025-04-04 00:45 | Outpatient (CLI) | payer MEDICARE, SELFPAY ==
[2025-04-04] MEDS: Normal Saline Flush 10 ML SYR IVP (13:17)
[2025-04-04] MEDS: Proteinase Inhibitor 5 VIAL in EMPTY EVACUATED CONTAINER 1 EACH 100 VIAL IVPB (13:17)
== END 2025-04-04 00:46 | disposition home or self-care (01) ==
LOC: INF 00:45
PROVIDERS: PCP Family Medicine; Visit Provider Orthopaedic Surgery
DX: E88.01 Alpha-1-antitrypsin deficiency (principal)
CPT/HCPCS: 96365; J0256